=== PATIENT | female | born 1940 | race Caucasian/White ===

== ENCOUNTER 2020-06-13 15:25 | Outpatient (CLI) | payer MEDICARE, SELFPAY ==
[2020-06-13 15:56] LABS: Basophils Percent Auto 0.5 % (0.2-1.2); Eosinophils Absolute Auto 0.2 K/mm3 (0-0.3); Eosinophils Percent Auto 3.2 % (0-4.4); Hematocrit 39.1 % (37.0-47.0); Hemoglobin 12.8 g/dL (12.0-15.0); Immature Granulocyte Absolute 0.01 K/mm3 (0.00-0.031); Immature Granulocyte Percent A 0.2 % (0-0.5); Lymphocytes Absolute Auto 1.81 K/mm3 (0.9-3.2); Lymphocytes Percent Auto 28.5 % (18.3-44.2); Mean Corpuscular HGB Conc 32.7 g/dl (32-36); Mean Corpuscular Hemoglobin 32.9 pg (26-34); Mean Corpuscular Volume 100.5 fl (80-100); Mean Platelet Volume 10.7 fl (7.4-10.4); Monocytes Absolute Auto 0.4 K/mm3 (0.1-0.6); Monocytes Percent Auto 5.7 % (2.6-8.5); Neutrophils Absolute Auto 3.9 K/mm3 (1.3-6.7); Neutrophils Percent Auto 61.9 % (45.5-73.1); Platelet Count Result 209 k/mm3 (150-375); Red Blood Count 3.89 M/mm3 (4.2-5.4); Red Cell Distribution Width 12.1 % (11.5-14.5); White Blood Count 6.3 K/mm3 (4.5-10.0)
[2020-06-13 16:08] LABS: Alanine Aminotransferase 21 U/L (4-35); Albumin Level 4.1 g/dL (3.5-5.1); Alkaline Phosphatase 61 U/L (38-126); Anion Gap 8.3 mmol/L (7-16); Aspartate Amino Transferase 25 U/L (14-36); Bilirubin,Total 0.6 mg/dL (0.2-1.3); Blood Urea Nitrogen 27 mg/dL (7-17); Calcium 9.5 mg/dL (8.4-10.2); Carbon Dioxide 27 mmol/L (22-30); Chloride 107 mmol/L (98-107); Cholesterol 219 mg/dL (0-200); Estimated Glomerular Filt Rate > 60; Glucose 89 mg/dL (65-105); HDL Direct 67 mg/dL; Potassium 4.3 mmol/L (3.4-5.0); Sodium 138 mmol/L (137-145); Triglycerides 133 mg/dL (<150)
[2020-06-13 16:19] LABS: LDL Cholesterol Direct 102 mg/dL
[2020-06-13 16:28] LABS: Creatinine Urine 123.4 mg/dL
[2020-06-13 16:30] LABS: MALB Creatinine Ratio 31.4 mg/g (0-30); Microalbumin Urine Random 38.7 mg/L (0-16.7)
[2020-06-13 16:41] LABS: Vitamin D 25 Hydroxy 58.5 ng/mL
== END 2020-06-13 15:26 | disposition home or self-care (01) ==
PROVIDERS: PCP Internal Medicine; Visit Provider Internal Medicine
DX: E78.5 Hyperlipidemia, unspecified (principal); F32.9 Major depressive disorder, single episode, unspecified; I35.0 Nonrheumatic aortic (valve) stenosis; Z79.899 Other long term (current) drug therapy
CPT/HCPCS: 36415; 80053; 80061; 82043; 82306; 85025

== ENCOUNTER 2020-07-01 13:45 | Outpatient (CLI) | payer MEDICARE, SELFPAY ==
--- NOTE | 2020-07-01 13:59 | ECHO_ITS ---
Patient Info Name: Sandhya Burk Age: 79 years : 1940 Gender: Female Ht: 65 in Wt: 204 lbs BSA: 2.10 m2 HR: 89 bpm BP: 119 / 91 mmHg Technical Quality: Fair Exam Date: 07/01/2020 2:03 PM Exam Location: [facility] Patient Status: Outpatient Admit Date: 07/01/2020 Staff Ordering Physician: Aly Casey MD Steamtable Attendant Railroad: Freida Rosales RDCS Attending Provider: Aly Casey MD Exam Type: CA echo doppler color flow Study Info Indications I35.0 - Nonrheumatic aortic (valve) stenosis Complete two-dimensional, color flow and Doppler transthoracic echocardiogram is performed. Summary 1. Left ventricular chamber dimension is normal. 2. Left ventricular systolic function is normal, estimated at 55-60%. 3. There is mildly increased left ventricular wall thickness. 4. The left ventricular diastolic function is grade I diastolic dysfunction. 5. E/e' 6 is not elevated. 6. Global longitudinal strain is mildly abnormal at -16.2%. 7. There is moderate aortic valve sclerosis. 8. There is moderate aortic valve stenosis with a peak velocity of 301 cm/s, mean gradient of 14 mmHg, and aortic valve area of 1.3 cm2. 9. There is trace aortic valve regurgitation. 10. The mitral valve has moderately calcified annulus. 11. No pulmonary hypertension, estimated pulmonary arterial systolic pressure is 32 mmHg. 12. Small atheroma in anterior aortic root. Left Ventricle E/e' 6 is not elevated. Global longitudinal strain is mildly abnormal at -16.2%. Left ventricular chamber dimension is normal. Left ventricular systolic function is normal, estimated at 55-60%. There is mildly increased left ventricular wall thickness. The left ventricular diastolic function is grade I diastolic dysfunction. Right Ventricle Right ventricular chamber dimension is normal. Right ventricular systolic function is normal. Left Atria Left atrial chamber dimension is normal. Right Atria Right atrial chamber dimension is normal. Aortic Valve The aortic valve is trileaflet. There is moderate aortic valve sclerosis. There is moderate aortic valve stenosis with a peak velocity of 301 cm/s, mean gradient of 14 mmHg, and aortic valve area of 1.3 cm2. There is trace aortic valve regurgitation. Pulmonic Valve There is no pulmonic regurgitation. Mitral Valve The mitral valve has moderately calcified annulus. There is no mitral valve stenosis. There is no mitral valve regurgitation. Tricuspid Valve There is no tricuspid valve regurgitation. No pulmonary hypertension, estimated pulmonary arterial systolic pressure is 32 mmHg. Pericardium/Pleural There is no pericardial effusion. Inferior Vena Cava Normal inferior vena cava with >50% collapse upon inspiration consistent with normal right atrial pressure, 5 mmHg. Aorta Small atheroma in anterior aortic root. The aortic root size at the sinus of Valsalva is normal. Left Ventricular Outflow Tract Name Value Normal LVOT 2D LVOT Diameter 2.0 cm LVOT Doppler LVOT Peak Gradient 6 mmHg LVOT Mean Gradient 3 mmHg LVOT VTI
== END 2020-07-01 13:46 | disposition home or self-care (01) ==
PROVIDERS: PCP Internal Medicine; Visit Provider Internal Medicine
DX: I35.0 Nonrheumatic aortic (valve) stenosis (principal)
CPT/HCPCS: 93306

== ENCOUNTER 2020-11-12 08:14 | Outpatient (NON) | payer MEDICARE, SELFPAY ==
[2020-11-12 23:03] LABS: SARS-CoV-2 RNA PCR Negative
== END 2020-11-12 08:15 ==
LOC: ANHCOVIDDT 08:15
PROVIDERS: PCP Internal Medicine; Visit Provider Internal Medicine
DX: R68.89 Other general symptoms and signs (principal); Z20.828 Contact with and (suspected) exposure to other viral communicable diseases
CPT/HCPCS: 87635; C9803; U0003

== ENCOUNTER 2021-01-06 14:24 | Outpatient (CLI) | payer MEDICARE, SELFPAY ==
[2021-01-06 14:50] LABS: Add Urine Microscopic? YES; Appearance Urine Clear (Clear); Bilirubin Urine Negative (Negative); Blood Urine Negative (Negative); Color Urine Yellow (Yellow); Glucose Urine UA Negative (Negative); Ketones Urine Negative (Negative); Leukocyte Esterase Ur 2+ LEU/UL (Negative); Mucus Urine Few /lpf; Nitrate Urine Negative (Negative); Protein Urine 1+ mg/dL (Negative); RBC Urine 0-2 /hpf (0-2); Squamous Epithelial Cell Urine Few /hpf (Few); Urobilinogen Urine Negative mg/dL (<2.0); WBC Urine 0-3 /hpf
== END 2021-01-06 14:25 | disposition home or self-care (01) ==
PROVIDERS: PCP Internal Medicine; Visit Provider Internal Medicine
DX: N39.0 Urinary tract infection, site not specified (principal)
CPT/HCPCS: 81001

== ENCOUNTER 2021-01-17 16:37 | Outpatient (CLI) | payer MEDICARE, SELFPAY ==
[2021-01-17 17:05] LABS: Basophils Percent Auto 0.5 % (0.2-1.2); Eosinophils Absolute Auto 0.2 K/mm3 (0-0.3); Eosinophils Percent Auto 3.8 % (0-4.4); Hemoglobin 12.7 g/dL (12.0-15.0); Immature Granulocyte Absolute 0.03 K/mm3 (0.00-0.031); Immature Granulocyte Percent A 0.5 % (0-0.5); Lymphocytes Absolute Auto 1.62 K/mm3 (0.9-3.2); Lymphocytes Percent Auto 27.9 % (18.3-44.2); Mean Corpuscular HGB Conc 32.6 g/dl (32-36); Mean Corpuscular Hemoglobin 33.2 pg (26-34); Mean Corpuscular Volume 101.8 fl (80-100); Mean Platelet Volume 10.2 fl (7.4-10.4); Monocytes Absolute Auto 0.4 K/mm3 (0.1-0.6); Monocytes Percent Auto 7.4 % (2.6-8.5); Neutrophils Absolute Auto 3.5 K/mm3 (1.3-6.7); Neutrophils Percent Auto 59.9 % (45.5-73.1); Platelet Count Result 242 k/mm3 (150-375); Red Blood Count 3.83 M/mm3 (4.2-5.4); Red Cell Distribution Width 11.9 % (11.5-14.5); White Blood Count 5.8 K/mm3 (4.5-10.0)
[2021-01-17 17:15] LABS: Add Urine Microscopic? YES; Appearance Urine Clear (Clear); Bilirubin Urine Negative (Negative); Blood Urine Negative (Negative); Color Urine Yellow (Yellow); Glucose Urine UA Negative (Negative); Ketones Urine Trace mg/dL (Negative); Leukocyte Esterase Ur 1+ LEU/UL (NEGATIVE); Mucus Urine Rare /lpf; Nitrate Urine Negative (Negative); Protein Urine 1+ mg/dL (Negative); RBC Urine 0-2 /hpf (0-2); Specific Grav Ur 1.026 (1.001-1.035); Squamous Epithelial Cell Urine Few /hpf (Few); Urobilinogen Urine Negative mg/dL (<2.0); WBC Urine 0-3 /hpf (0-3)
[2021-01-17 17:18] LABS: Alanine Aminotransferase 19 U/L (4-35); Albumin Level 3.9 g/dL (3.5-5.1); Alkaline Phosphatase 67 U/L (38-126); Anion Gap 6 mmol/L (8-16); Aspartate Amino Transferase 26 U/L (14-36); Bilirubin,Total 0.4 mg/dL (0.2-1.3); Blood Urea Nitrogen 34 mg/dL (7-17); Calcium 9.1 mg/dL (8.4-10.2); Carbon Dioxide 26 mmol/L (22-30); Chloride 110 mmol/L (98-107); Estimated Glomerular Filt Rate 40; Glucose 80 mg/dL (65-105); Potassium 5.3 mmol/L (3.4-5.0); Sodium 142 mmol/L (137-145)
[2021-01-17 19:24] LABS: Folic Acid > 20.0 ng/mL (2.76->20); Vitamin B12 > 1000.0 pg/mL (239-931)
[2021-01-17 19:34] LABS: Vitamin D 25 Hydroxy 62.8 ng/mL
== END 2021-01-17 16:38 | disposition home or self-care (01) ==
LOC: ANHLAB 16:38
PROVIDERS: PCP Internal Medicine; Visit Provider Internal Medicine
DX: E55.9 Vitamin D deficiency, unspecified (principal); F32.9 Major depressive disorder, single episode, unspecified; N28.89 Other specified disorders of kidney and ureter; R79.89 Other specified abnormal findings of blood chemistry; D53.1 Other megaloblastic anemias, not elsewhere classified; R53.83 Other fatigue
CPT/HCPCS: 36415; 80053; 81001; 82306; 82607; 82746; 84443; 85025

== ENCOUNTER 2021-01-31 16:44 | Outpatient (CLI) | payer MEDICARE, SELFPAY ==
[2021-01-31 17:12] LABS: Anion Gap 5 mmol/L (8-16); Blood Urea Nitrogen 34 mg/dL (7-17); Calcium 9.4 mg/dL (8.4-10.2); Carbon Dioxide 26 mmol/L (22-30); Chloride 112 mmol/L (98-107); Estimated Glomerular Filt Rate 48; Glucose 90 mg/dL (65-105); Potassium 4.5 mmol/L (3.4-5.0); Sodium 143 mmol/L (137-145)
== END 2021-01-31 16:45 | disposition home or self-care (01) ==
PROVIDERS: PCP Internal Medicine; Visit Provider Internal Medicine
DX: N18.9 Chronic kidney disease, unspecified (principal)
CPT/HCPCS: 36415; 80048

== ENCOUNTER 2022-02-23 17:18 | Outpatient (CLI) | payer MEDICARE, SELFPAY ==
[2022-02-23 17:46] LABS: Basophils Percent Auto 0.5 % (0.2-1.2); Eosinophils Absolute Auto 0.1 K/mm3 (0-0.3); Eosinophils Percent Auto 1.7 % (0-4.4); Hematocrit 43.6 % (37.0-47.0); Hemoglobin 13.6 g/dL (12.0-15.0); Immature Granulocyte Absolute 0.02 K/mm3 (0.00-0.031); Immature Granulocyte Percent A 0.3 % (0-0.5); Lymphocytes Absolute Auto 1.33 K/mm3 (0.9-3.2); Mean Corpuscular HGB Conc 31.2 g/dl (32-36); Mean Corpuscular Hemoglobin 32.9 pg (26-34); Mean Corpuscular Volume 105.3 fl (80-100); Mean Platelet Volume 10.5 fl (7.4-10.4); Monocytes Absolute Auto 0.3 K/mm3 (0.1-0.6); Monocytes Percent Auto 5.6 % (2.6-8.5); Neutrophils Absolute Auto 4.2 K/mm3 (1.3-6.7); Neutrophils Percent Auto 69.9 % (45.5-73.1); Platelet Count Result 208 k/mm3 (150-375); Red Blood Count 4.14 M/mm3 (4.2-5.4); Red Cell Distribution Width 11.8 % (11.5-14.5)
[2022-02-23 17:59] LABS: Alanine Aminotransferase 21 U/L (4-35); Albumin Level 3.9 g/dL (3.5-5.1); Alkaline Phosphatase 61 U/L (38-126); Anion Gap 5 mmol/L (8-16); Aspartate Amino Transferase 28 U/L (14-36); Bilirubin,Total 0.3 mg/dL (0.2-1.3); Blood Urea Nitrogen 31 mg/dL (7-17); Calcium 9.3 mg/dL (8.4-10.2); Carbon Dioxide 27 mmol/L (22-30); Chloride 110 mmol/L (98-107); Cholesterol 159 mg/dL (0-200); Estimated Glomerular Filt Rate 36; Glucose 97 mg/dL (65-110); HDL Direct 73 mg/dL; Potassium 5.4 mmol/L (3.4-5.0); Sodium 142 mmol/L (137-145); Triglycerides 225 mg/dL (<150)
[2022-02-23 18:10] LABS: LDL Cholesterol Direct 33 mg/dL
[2022-02-23 18:19] LABS: Vitamin D 25 Hydroxy 63.5 ng/mL
== END 2022-02-23 17:19 | disposition home or self-care (01) ==
LOC: ANHLAB 17:21
PROVIDERS: PCP Internal Medicine; Visit Provider Internal Medicine
DX: N18.9 Chronic kidney disease, unspecified (principal); E55.9 Vitamin D deficiency, unspecified; R79.89 Other specified abnormal findings of blood chemistry; D53.1 Other megaloblastic anemias, not elsewhere classified; I35.0 Nonrheumatic aortic (valve) stenosis; F33.9 Major depressive disorder, recurrent, unspecified; E78.2 Mixed hyperlipidemia
CPT/HCPCS: 36415; 80053; 80061; 82306; 84443; 85025

== ENCOUNTER 2022-04-20 02:02 | Day surgery (SDC) | payer MEDICARE, SELFPAY ==
[2022-04-15 12:50] VITALS: BMI 32.3
--- NOTE | 2022-04-20 11:59 | PM.HPGS ---
History of Present Illness History of Present Illness Consent: Risks, benefits, and alternatives have been discussed and questions answered. Patient agrees to proceed with procedure. Chief complaint: GIST/gastric tumor Narrative: Sandhya Burk is a 81 year old female who was found to have what appears to be a possible stromal tumor. This was found incidentally when she had an MRI 2 years ago to investigate urologic problems. Review of Systems Review of Systems: All systems reviewed & are unremarkable except as noted in HPI and below PMFSH Past Medical History Medical History Aortic stenosis 1.3 cm2 07/04 BPPV (benign paroxysmal positional vertigo) Cataract CKD (chronic kidney disease) Dyslipidemia Gastrointestinal stromal tumor (GIST) Left renal mass Megaloblastic anemia Obesity (BMI 30-39.9) Rheumatoid arthritis Surgical History Surgical History H/O shoulder replacement H/O: hysterectomy History of tonsillectomy Total knee replacement status Family History Family History Father Family history of cardiovascular disease Family history of atrial fibrillation Family history of alcoholism Mother Family history of cardiovascular disease Family history of kidney disease Family history of mental disorder, Onset Age: 98 Sibling Family history of kidney disease Social History Social History Smoking packs per day: 0.75 Smoking cigarettes per day: 15.0 Years smoked: 15 Smoking pack-years: 11.25 Smoking status: Former smoker Tobacco type: cigarettes Second hand tobacco smoke exposure: Yes Smoking end date: 11/15/75 Alcohol intake: current Drinks per week: 2 Alcohol use details: a few drinks monthly Substance use: former Living arrangements: with family Spiritual care concerns: No Meds Home Medications and Allergies Home Medications Medication Instructions Recorded Confirmed Type aspirin 81 mg tablet,delayed 81 mg PO DAILY 10/19/19 04/15/22 History release (Adult Low Dose Aspirin) bupropion HCl 200 mg tablet,12 hr 200 mg PO Q12H #180 tabs 10/19/19 04/15/22 Rx sustained-release multivitamin 1 tablet PO DAILY 10/19/19 04/15/22 History sertraline 100 mg tablet 100 mg PO DAILY 10/19/19 04/15/22 History doxycycline monohydrate 40 mg 40 mg PO DAILY 06/05/20 04/15/22 History capsule,immediate - delay release (Oracea) ascorbic acid (vitamin C) 1,000 mg 1 g PO DAILY 06/20/21 04/15/22 History tablet atorvastatin 10 mg tablet (Lipitor) 10 mg PO DAILY 06/20/21 04/15/22 History calcium carbonate 500 mg calcium 1,000 mg PO DAILY 06/20/21 04/15/22 History (1,250 mg) tablet (Calcium 500) ferrous sulfate 325 mg (65 mg 325 mg PO DAILY 06/20/21 04/15/22 History iron) tablet (Feosol) folic acid 400 mcg tablet 0.4 mg PO DAILY 06/20/21 04/15/22 History mecobalamin (vitamin B12) 5,000 5,000 mcg PO BID 06/20/21 04/15/22 History mcg disintegrating tablet vit 1 cap PO DAILY 06/20/21 04/15/22 History C,E,zinc,Mk-tlzli-1-lutein-zeaxanthin 250 mg-2.5 mg-0.5 mg capsule clonazepam 0.5 mg tablet 0.5 mg PO DAILY PRN anxiety 02/25/22 04/15/22 History hydroxychloroquine 200 mg tablet 200 mg PO BID 04/15/22 04/15/22 History Allergies Allergy/AdvReac Type Severity Reaction Status Date / Time adhesive Allergy Unknown Skin Verified 04/20/22 12:21 irritation Exam Const: General: alert Orientation/consciousness: patient oriented x3 Resp: Auscultation: clear to auscultation bilaterally Cardio: Rhythm: regular rhythm GI: GI Palp: Yes Soft to palpation and No Tenderness to palpation present (GI) Neuro: General: patient oriented x3 Assessment and Plan Assessment and plan (1) Gastrointestinal stromal tumor (GIST): Code(s):
--- NOTE | 2022-04-20 12:10 | WPDANESEPPF ---
Anes - Initial Pre Proc Eval Procedure: Operation Date: 04/20/22 13:30 Proposed Procedures p Esophagogastroduodenoscopy - Gregor Jenkins MD Date/Time: 04/20/22 12:10 Surgeon: Gregor Jenkins MD Pre Op Diagnosis: GIST/gastric tumor Patient Data Age: 81 Gender: F Height: 1.68 m Weight: 91 kg Allergies Allergy/AdvReac Type Severity Reaction Status Date / Time adhesive Allergy Unknown Skin Verified 04/15/22 12:46 irritation Home Medications Medication Instructions Recorded Confirmed Type aspirin 81 mg tablet,delayed 81 mg PO DAILY 10/19/19 04/15/22 History release (Adult Low Dose Aspirin) bupropion HCl 200 mg tablet,12 hr 200 mg PO Q12H #180 tabs 10/19/19 04/15/22 Rx sustained-release multivitamin 1 tablet PO DAILY 10/19/19 04/15/22 History sertraline 100 mg tablet 100 mg PO DAILY 10/19/19 04/15/22 History doxycycline monohydrate 40 mg 40 mg PO DAILY 06/05/20 04/15/22 History capsule,immediate - delay release (Oracea) ascorbic acid (vitamin C) 1,000 mg 1 g PO DAILY 06/20/21 04/15/22 History tablet atorvastatin 10 mg tablet (Lipitor) 10 mg PO DAILY 06/20/21 04/15/22 History calcium carbonate 500 mg calcium 1,000 mg PO DAILY 06/20/21 04/15/22 History (1,250 mg) tablet (Calcium 500) ferrous sulfate 325 mg (65 mg 325 mg PO DAILY 06/20/21 04/15/22 History iron) tablet (Feosol) folic acid 400 mcg tablet 0.4 mg PO DAILY 06/20/21 04/15/22 History mecobalamin (vitamin B12) 5,000 5,000 mcg PO BID 06/20/21 04/15/22 History mcg disintegrating tablet vit 1 cap PO DAILY 06/20/21 04/15/22 History C,E,zinc,Eb-dlcqa-7-lutein-zeaxanthin 250 mg-2.5 mg-0.5 mg capsule clonazepam 0.5 mg tablet 0.5 mg PO DAILY PRN anxiety 02/25/22 04/15/22 History hydroxychloroquine 200 mg tablet 200 mg PO BID 04/15/22 04/15/22 History Patient hx anesthesia problems: none Family hx anesthesia problems: none Results Review: All pre-operative results and documents have been reviewed as part of the pre-operative evaluation. [facility] Past Medical History Medical History (Updated 04/20/22 @ 12:13 by Nahum Foy MD) Aortic stenosis 1.3 cm2 07/04 BPPV (benign paroxysmal positional vertigo) Cataract CKD (chronic kidney disease) Dyslipidemia Gastrointestinal stromal tumor (GIST) Left renal mass Megaloblastic anemia Obesity (BMI 30-39.9) Rheumatoid arthritis Surgical History Surgical History (Updated 03/10/22 @ 15:40 by Alisha Urena MA) H/O shoulder replacement H/O: hysterectomy History of tonsillectomy Total knee replacement status Family History Family History Father Family history of cardiovascular disease Family history of atrial fibrillation Family history of alcoholism Mother Family history of cardiovascular disease Family history of kidney disease Family history of mental disorder, Onset Age: 98 Sibling Family history of kidney disease Social History Social History Smoking packs per day: 0.75 Smoking cigarettes per day: 15.0 Years smoked: 15 Smoking pack-years: 11.25 Smoking status: Former smoker Tobacco type: cigarettes Second hand tobacco smoke exposure: Yes Smoking end date: 11/15/75 Alcohol intake: current Drinks per week: 2 Alcohol use details: a few drinks monthly Substance use: former Living arrangements: with family Spiritual care concerns: No Anes - Eval Final PreProcedure Day of Procedure 04/20/22 12:10 Patient weight: obese Heart: regular rate and rhythm Lungs: clear to auscultation and normal air movement Airway: Mallampati scale class II Neurological: alert and oriented Last oral intake: >/= 8 hours ASA classification: IV Emergent: no Anesthetic plan: proceed Anesthesia type and monitoring: general GIVS Results Review: All pre-operative results and documents have been reviewed as kaci
[2022-04-20 12:24] VITALS: BP 103/73; PULSE 98; RESP 18; TEMP 36.1; O2SAT 97; BMI 32.6
[2022-04-20] MEDS: LACTATED RINGERS 1,000 ML 150 ML IV CONT (12:33)
[2022-04-20 12:53] VITALS: BP 100/52; PULSE 76; RESP 18; O2SAT 97
[2022-04-20 13:03] VITALS: BP 103/66; PULSE 76; RESP 21; O2SAT 99
[2022-04-20 13:13] VITALS: BP 119/70; PULSE 75; RESP 20; O2SAT 99
== END 2022-04-20 13:35 | disposition home or self-care (01) ==
PROVIDERS: PCP Internal Medicine; Visit Provider Internal Medicine Gastroenterology
PROC: 0DJ08ZZ Inspection of Upper Intestinal Tract, Via Natural or Artificial Opening Endoscopic (ICD-10-PCS; CPT 43235; principal; 2022-04-20 13:30)
DX: C49.A0 Gastrointestinal stromal tumor, unspecified site (principal); K21.9 Gastro-esophageal reflux disease without esophagitis; K29.70 Gastritis, unspecified, without bleeding; N18.9 Chronic kidney disease, unspecified; E78.5 Hyperlipidemia, unspecified; E66.9 Obesity, unspecified; M06.9 Rheumatoid arthritis, unspecified; D53.1 Other megaloblastic anemias, not elsewhere classified; I35.0 Nonrheumatic aortic (valve) stenosis; Z87.891 Personal history of nicotine dependence; Z68.32 Body mass index [BMI] 32.0-32.9, adult
CPT/HCPCS: 43239; 87081; 88305; J2704; J7120

== ENCOUNTER 2022-06-02 12:41 | Outpatient (RCR) | payer MEDICARE, SELFPAY ==
[2022-06-02 14:36] VITALS: BP 107/68; PULSE 80; RESP 20; TEMP 36.6; O2SAT 97
[2022-06-02] MEDS: ACETAMINOPHEN 325 MG TABLET 650 MG PO (14:50)
[2022-06-02] MEDS: FAMOTIDINE 20 MG TABLET PO (14:50)
[2022-06-02] MEDS: diphenhydrAMINE HCl CAP 25 MG CAPSULE PO (14:50)
[2022-06-02] MEDS: BEBTELOVIMAB 175 MG/2 ML VIAL IV PUSH (15:11)
[2022-06-02 15:46] VITALS: BP 115/60; PULSE 69; RESP 18; O2SAT 98
== END 2022-06-02 16:00 ==
LOC: AMCINF 12:41
PROVIDERS: PCP Internal Medicine; Referring Provider Internal Medicine; Visit Provider Internal Medicine Hematology & Oncology
DX: U07.1 COVID-19 (principal); N18.9 Chronic kidney disease, unspecified
CPT/HCPCS: A9270; M0222; Q0222

== ENCOUNTER 2022-07-07 17:08 | Outpatient (CLI) | payer MEDICARE, SELFPAY ==
[2022-07-07 18:28] LABS: Creatinine Urine 227.4 mg/dL; Total Protein Urine Random 26 mg/dL; Ur Ttl Prot Creatinine Ratio 0.11 mg/mg (0-0.20)
[2022-07-07 18:43] LABS: Albumin Level 4.2 g/dL (3.5-5.1); Anion Gap 11 mmol/L (8-16); Blood Urea Nitrogen 34 mg/dL (7-17); Calcium 9.9 mg/dL (8.4-10.2); Carbon Dioxide 23 mmol/L (22-30); Chloride 103 mmol/L (98-107); Estimated Glomerular Filt Rate 39; Glucose 91 mg/dL (65-110); Phosphorus 4.4 mg/dL (2.5-4.5); Potassium 4.6 mmol/L (3.4-5.0); Sodium 137 mmol/L (137-145)
[2022-07-07 18:50] LABS: Complement C3 119 mg/dL (88-165)
[2022-07-07 18:59] LABS: Sodium Urine Random 69 meq/L
[2022-07-07 19:45] LABS: Eosinophil Urine None Seen % (None Seen)
[2022-07-11 21:19] LABS: Albumin 3.8 g/dL (3.8-4.8); Alpha 1 Globulin 0.3 g/dL (0.2-0.3); Alpha 2 Globulin 0.9 g/dL (0.5-0.9); Beta 1 Globulin 0.4 g/dL (0.4-0.6); Gamma Globulin 0.5 g/dL (0.8-1.7); Interpretation Consistent with; Protein, Total 6.2 g/dL (6.1-8.1)
[2022-07-11 22:09] LABS: ANCA Screen Negative (Negative)
[2022-07-13 02:00] LABS: Total Protein/Creatinine Ratio 195 mg/g creat (21-161)
[2022-07-14 20:32] LABS: Anti Glomerular Basement Memb <1.0 AI (<1.0)
== END 2022-07-07 17:09 | disposition home or self-care (01) ==
PROVIDERS: PCP Internal Medicine; Visit Provider Internal Medicine Nephrology
DX: N18.32 Chronic kidney disease, stage 3b (principal); E78.5 Hyperlipidemia, unspecified
CPT/HCPCS: 36415; 80069; 82570; 83520; 84155; 84156; 84165; 84166; 84300; 85999; 86036; 86038; 86160; 86225

== ENCOUNTER → 2022-08-25 14:58 | Outpatient (CLI) | payer MEDICARE, SELFPAY ==
--- NOTE | ~2022-08-25 | US_ITS ---
EXAMINATION: US retroperitoneal comp DATE: 08/25/2022 15:29 INDICATION: Chronic kidney disease TECHNIQUE: Multiple ultrasound grayscale images of the kidneys were obtained. COMPARISON: 04/05/2018 FINDINGS: The right kidney measures 10.3 x 4.5 x 5.0 cm. The left kidney measures 10.9 x 5.2 x 4.9 cm. The kidn eys demonstrate normal echogenicity. There are couple small hyperechoic lesions in the right kidney, the larger measuring 9 mm in the interpolar region. The second smaller 6 mm lesion at the lower pole appears unchanged since the prior study. Somewhat V-shaped anechoic cystic lesion at the lower pole o f the left kidney which could represent either an irregularly-shaped cyst, complex cyst with incomple te thin septation lower couple dilated calyces isolated to the lower pole. No margot hydronephrosis in either kidney. 1.8 cm anechoic left renal cyst. No stones identified. The bladder is normal. IMPRESSION: 1. Irregularly-shaped cystic lesion at the lower pole of the right kidney which could represent irre gularly shaped simple cyst, complex cystic neoplasm or pair of dilated calyces isolated to the lower pole. Would recommend further evaluation with pre and postcontrast MRI or CT. No margot hydronephrosis in either kidney. 2. 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 Reviewed, dictated and finalized at location B. IMPRESSION: 1. Irregularly-shaped cystic lesion at the lower pole of the right kidney whic h could represent irregularly shaped simple cyst, complex cystic neoplasm or pa ir of dilated calyces isolated to the lower pole. Would recommend further evalu ation with pre and postcontrast MRI or CT. No margot hydronephrosis in either ki dney. 2. 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
== END ==
PROVIDERS: PCP Internal Medicine Nephrology; Visit Provider Internal Medicine Nephrology
DX: N18.32 Chronic kidney disease, stage 3b (principal)
CPT/HCPCS: 76770

== ENCOUNTER 2022-11-12 15:15 | Outpatient (CLI) | payer MEDICARE, SELFPAY ==
[2022-11-12 16:25] LABS: Anion Gap 4 mmol/L (8-16); Blood Urea Nitrogen 26 mg/dL (7-17); Calcium 9.1 mg/dL (8.4-10.2); Carbon Dioxide 26 mmol/L (22-30); Chloride 111 mmol/L (98-107); Estimated Glomerular Filt Rate 43; Glucose 75 mg/dL (65-110); Phosphorus 3.5 mg/dL (2.5-4.5); Potassium 4.3 mmol/L (3.4-5.0); Sodium 141 mmol/L (137-145)
[2022-11-12 16:26] LABS: Creatinine Urine 148.8 mg/dL; Total Protein Urine Random 12 mg/dL; Ur Ttl Prot Creatinine Ratio 0.08 mg/mg (0-0.20)
[2022-11-12 17:25] LABS: Vitamin D 25 Hydroxy 45.4 ng/mL
== END 2022-11-12 15:16 | disposition home or self-care (01) ==
LOC: ANHLAB 15:17
PROVIDERS: PCP Internal Medicine; Visit Provider Internal Medicine Nephrology
DX: E55.9 Vitamin D deficiency, unspecified (principal); N18.32 Chronic kidney disease, stage 3b; N25.81 Secondary hyperparathyroidism of renal origin
CPT/HCPCS: 36415; 80069; 82306; 82570; 83970; 84156

== ENCOUNTER 2023-01-01 14:18 | Outpatient (CLI) | payer MEDICARE, SELFPAY ==
[2023-01-01 14:53] LABS: Basophils Percent Auto 0.6 % (0.2-1.2); Eosinophils Absolute Auto 0.3 K/mm3 (0-0.3); Eosinophils Percent Auto 4.9 % (0-4.4); Hematocrit 41.5 % (37.0-47.0); Hemoglobin 13.4 g/dL (12.0-15.0); Immature Granulocyte Absolute 0.02 K/mm3 (0.00-0.031); Immature Granulocyte Percent A 0.4 % (0-0.5); Lymphocytes Absolute Auto 1.13 K/mm3 (0.9-3.2); Mean Corpuscular HGB Conc 32.3 g/dl (32-36); Mean Corpuscular Hemoglobin 33.1 pg (26-34); Mean Corpuscular Volume 102.5 fl (80-100); Mean Platelet Volume 11.2 fl (7.4-10.4); Monocytes Absolute Auto 0.4 K/mm3 (0.1-0.6); Monocytes Percent Auto 7.2 % (2.6-8.5); Neutrophils Absolute Auto 3.3 K/mm3 (1.3-6.7); Neutrophils Percent Auto 64.9 % (45.5-73.1); Platelet Count Result 150 k/mm3 (150-375); Red Blood Count 4.05 M/mm3 (4.2-5.4); Red Cell Distribution Width 12.4 % (11.5-14.5); White Blood Count 5.1 K/mm3 (4.5-10.0)
[2023-01-01 14:54] LABS: Appearance Urine Slightly Cloudy (Clear); Bilirubin Urine Negative (Negative); Blood Urine Trace-intact (Negative); Color Urine Yellow (Yellow); Glucose Urine UA Negative (Negative); Ketones Urine Negative (Negative); Leukocyte Esterase Ur Trace LEU/UL (Negative); Nitrate Urine Negative (Negative); Protein Urine 1+ mg/dL (Negative); Specific Grav Ur >= 1.030 (1.001-1.035); Urobilinogen Urine 0.2 mg/dL (<2.0); pH Urine 5.5 (5.0-9.0)
[2023-01-01 15:01] LABS: Mucus Urine Few /lpf; Squamous Epithelial Cell Urine Few /hpf (Few)
[2023-01-01 15:02] LABS: Anion Gap 6 mmol/L (8-16); Blood Urea Nitrogen 17 mg/dL (7-17); Carbon Dioxide 25 mmol/L (22-30); Chloride 110 mmol/L (98-107); Estimated Glomerular Filt Rate 53; Glucose 78 mg/dL (65-110); Potassium 3.8 mmol/L (3.4-5.0); Sodium 141 mmol/L (137-145)
[2023-01-01 15:03] LABS: Add Urine Microscopic? YES
== END 2023-01-01 14:19 | disposition home or self-care (01) ==
PROVIDERS: PCP Internal Medicine
DX: I35.0 Nonrheumatic aortic (valve) stenosis (principal); Z01.818 Encounter for other preprocedural examination
CPT/HCPCS: 36415; 80048; 81001; 85025

== ENCOUNTER 2023-03-17 16:44 | Outpatient (CLI) | payer MEDICARE, SELFPAY ==
[2023-03-17 17:23] LABS: Creatinine Urine 190.3 mg/dL; Total Protein Urine Random 17 mg/dL; Ur Ttl Prot Creatinine Ratio 0.09 mg/mg (0-0.20)
[2023-03-17 17:23] LABS: Albumin Level 4.1 g/dL (3.5-5.1); Anion Gap 7 mmol/L (8-16); Blood Urea Nitrogen 32 mg/dL (7-17); Calcium 9.4 mg/dL (8.4-10.2); Carbon Dioxide 22 mmol/L (22-30); Chloride 110 mmol/L (98-107); Estimated Glomerular Filt Rate 43; Glucose 95 mg/dL (65-110); Phosphorus 4.2 mg/dL (2.5-4.5); Potassium 4.5 mmol/L (3.4-5.0); Sodium 139 mmol/L (137-145)
== END 2023-03-17 16:45 | disposition home or self-care (01) ==
PROVIDERS: PCP Internal Medicine; Visit Provider Internal Medicine Nephrology
DX: N18.32 Chronic kidney disease, stage 3b (principal)
CPT/HCPCS: 36415; 80069; 82570; 84156; 93798

== ENCOUNTER 2023-05-11 09:50 | Observation (INO) | payer MEDICARE, SELFPAY ==
[2023-05-11] VITALS (35 sets, daily range): BP systolic 79–115; BP diastolic 48–73; PULSE 59–80; RESP 12–28; TEMP 36.2–36.6; O2SAT 97–100; BMI 27.9
--- NOTE | ~2023-05-11 | CT_ITS ---
EXAMINATION: CT abdomen pelvis wo con DATE: 05/11/2023 11:49 INDICATION: Abdominal pain and distention TECHNIQUE: Computed tomography (CT) of the abdomen and pelvis was performed without intravenous contr ast. The dose-length product (DLP) was 796.22 mGy-cm. Automated exposure control and iterative recons truction technique were employed. COMPARISON: None FINDINGS: Minimal dependent atelectasis is present in the lung bases. The heart size is normal. There are changes of endovascular aortic valve replacement. Cysts of the liver measure up to 4 cm in the l eft hepatic lobe. The spleen, pancreas, and adrenal glands are normal. A stone is present in the gall bladder which is mildly distended. 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 Cysts of the l eft kidney measure up to 11 mm. No pathologically enlarged abdominal or pelvic lymph nodes are identi fied. There is a ventral hernia of the left lower quadrant containing omentum and a segment of nonobs tructed transverse colon. There are right lower quadrant ventral hernias containing fat and omentum. No free intraperitoneal gas or evidence of bowel obstruction. The appendix is normal. There is severe lumbar spondylosis. IMPRESSION: 1. Left lower quadrant ventral hernia containing omentum and a segment of nonobstructed transverse co kyree. 2. Right lower quadrant ventral hernias containing fat and omentum. 3. Cholelithiasis with mild gallbladder distention. Correlate for right upper quadrant tenderness. Reviewed, dictated and finalized at location L. IMPRESSION: 1. Left lower quadrant ventral hernia containing omentum and a segment of nonob structed transverse colon. 2. Right lower quadrant ventral hernias containing fat and omentum. 3. Cholelithiasis with mild gallbladder distention. Correlate for right upper q uadrant tenderness.
--- NOTE | ~2023-05-11 | XR_ITS ---
EXAMINATION: XR chest 1V portable INDICATION: Weakness TECHNIQUE: Portable AP chest at 1153 hours COMPARISON: 06/21/2009 FINDINGS: The lungs are free of acute opacities. No pleural effusion or pneumothorax. The cardiomedia stinal silhouette is normal. There are changes of interval bilateral total shoulder arthroplasty. IMPRESSION: 1. No acute cardiopulmonary abnormality. Reviewed, dictated and finalized at location L.
--- NOTE | 2023-05-11 10:03 | ECG_ITS ---
Measurements Intervals [place] Rate: 64 P: 46 TX: 239 QRS: -70 QRSD: 111 T: 84 QT: 418 QTc: 432 Interpretive Statements SINUS RHYTHM WITH FIRST DEGREE AV BLOCK WITH OCCASIONAL SUPRAVENTRICULAR PREMATURE COMPLEXES INFERIOR MYOCARDIAL INFARCTION , PROBABLY OLD [40+ ms Q WAVE AND/OR ST/T ABNORMALITY IN II/aVF] NO PREVIOUS ECG AVAILABLE FOR COMPARISON Electronically Signed On 05-11-2023 13:56:10 CDT by Keturah Xiong M.D.
[2023-05-11 10:19] LABS: Basophils Absolute Auto 0.1 K/mm3 (0.0-0.1); Basophils Percent Auto 0.6 % (0.2-1.2); Eosinophils Absolute Auto 0.3 K/mm3 (0-0.3); Eosinophils Percent Auto 3.7 % (0-4.4); Hematocrit 41.5 % (37.0-47.0); Hemoglobin 13.4 g/dL (12.0-15.0); Immature Granulocyte Absolute 0.02 K/mm3 (0.00-0.031); Immature Granulocyte Percent A 0.2 % (0-0.5); Immature Platelet Fraction Pct 5.1 % (0.9-11.2); Lymphocytes Absolute Auto 2.42 K/mm3 (0.9-3.2); Lymphocytes Percent Auto 28.6 % (18.3-44.2); Mean Corpuscular HGB Conc 32.3 g/dl (32-36); Mean Corpuscular Hemoglobin 33.8 pg (26-34); Mean Corpuscular Volume 104.8 fl (80-100); Mean Platelet Volume 11.4 fl (7.4-10.4); Monocytes Absolute Auto 0.7 K/mm3 (0.1-0.6); Monocytes Percent Auto 8.6 % (2.6-8.5); Neutrophils Absolute Auto 4.9 K/mm3 (1.3-6.7); Neutrophils Percent Auto 58.3 % (45.5-73.1); Platelet Count Result 92 k/mm3 (150-375); Red Blood Count 3.96 M/mm3 (4.2-5.4); Red Cell Distribution Width 11.8 % (11.5-14.5); White Blood Count 8.5 K/mm3 (4.5-10.0)
[2023-05-11 10:24] LABS: Alanine Aminotransferase 28 U/L (6-35); Alkaline Phosphatase 73 U/L (38-126); Anion Gap 7 mmol/L (8-16); Aspartate Amino Transferase 34 U/L (14-36); Bilirubin,Total 0.6 mg/dL (0.2-1.3); Blood Urea Nitrogen 31 mg/dL (7-17); Calcium 9.4 mg/dL (8.4-10.2); Carbon Dioxide 25 mmol/L (22-30); Chloride 108 mmol/L (98-107); Estimated Glomerular Filt Rate 33; Glucose 96 mg/dL (65-110); Potassium 4.1 mmol/L (3.4-5.0); Sodium 140 mmol/L (137-145)
[2023-05-11] MEDS: SODIUM CHLORIDE 0.9% IV 500 ML 999 ML IV CONT ×2 (10:29→11:59)
[2023-05-11 11:21] LABS: Lactic Acid Reflex 1.3 mmol/L (0.7-2.0)
--- NOTE | 2023-05-11 13:14 | ED.DIZZY ---
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 PAtient states she has been having intermittent dizziness for several weeks. She thinks it is related to when she is doing cardio rehab. She states her blood pressure has been runny low especially when she is going rehab. Today she was feeling fine until she tried to get out the car. Someone had to get a wheelchair to take her to Dr. Holm. Dr. Holm's office unable to get a pulse or blood pressure so she was sent to ER for presumed hypotension. Patient report she was having dizziness with carvedilol so she was switched to metoprolol. She is unsure of her dosage. She denies chest pain, shortness of breath. She denies nausea or vomiting but she does report intermittent abdominal pain. Related Data Home Medications Medication Instructions Recorded Confirmed aspirin 81 mg tablet,delayed 81 mg PO DAILY 10/19/19 05/11/23 release (Adult Low Dose Aspirin) multivitamin 1 tablet PO DAILY 10/19/19 05/11/23 sertraline 100 mg tablet 100 mg PO DAILY 10/19/19 05/11/23 ascorbic acid (vitamin C) 1,000 mg 1 g PO DAILY 06/20/21 05/11/23 tablet atorvastatin 10 mg tablet (Lipitor) 10 mg PO DAILY 06/20/21 05/11/23 ferrous sulfate 325 mg (65 mg 325 mg PO DAILY 06/20/21 05/11/23 iron) tablet (Feosol) folic acid 400 mcg tablet 0.4 mg PO DAILY 06/20/21 05/11/23 vit 1 cap PO DAILY 06/20/21 05/11/23 C,E,zinc,Zc-jkyev-1-lutein-zeaxanthin 250 mg-2.5 mg-0.5 mg capsule clonazepam 0.5 mg tablet 0.5 mg PO DAILY PRN anxiety 02/25/22 05/11/23 sacubitril 24 mg-valsartan 26 mg 0.5 tablet PO Q12H 02/23/23 05/11/23 tablet (Entresto) dapagliflozin propanediol 10 mg 10 mg PO DAILY 03/22/23 05/11/23 tablet (Farxiga) metoprolol succinate 25 mg 25 mg PO DAILY 05/11/23 05/11/23 tablet,extended release 24 hr Allergies Allergy/AdvReac Type Severity Reaction Status Date / Time adhesive Allergy Unknown Skin Verified 05/11/23 10:13 irritation Review of Systems Constitutional: Constitutional: Reports fatigue and Reports weakness Cardiovascular: Cardiovascular: Denies syncope, Denies rapid heart rate, Denies irregular heart rhythm, Denies leg edema and Denies dyspnea Respiratory: Respiratory: Denies chest congestion, Denies hemoptysis, Denies excessive phlegm production and Reports dyspnea (chronic) Gastrointestinal: Gastrointestinal: Reports abdominal pain, Denies hematochezia, Denies diarrhea and Denies vomiting Genitourinary: Genitourinary: Denies hematuria and Denies dysuria Musculoskeletal: Musculoskeletal: Denies joint swelling, Denies loss of height and Denies muscle weakness Neurologic: Denies vertigo, Reports dizziness, Denies syncope, Denies focal weakness and Denies weakness [facility] Past Medical History Medical History (Updated 05/11/23 @ 19:42 by Joy Ruelas MD) Aortic stenosis 1.3 cm2 07/04 BPPV (benign paroxysmal positional vertigo) Cataract Chronic kidney disease Dyslipidemia Left renal mass Megaloblastic anemia Nonischemic cardiomyopathy Obesity (BMI 30-39.9) Surgical History Surgical History (Updated 05/11/23 @ 19:41 by Kendra Bronson PA-C) H/O shoulder replacement H/O: hysterectomy History of tonsillectomy Status post transcatheter aortic valve replacement Total knee replacement status Family History Family History Father Family history of cardiovascular disease Family history of atrial fibrillation Family history of alcoholism Mother Family history of cardiovascula
--- NOTE | 2023-05-11 14:45 | ADMGEN ---
This patient, Sandhya Burk, was admitted to IMU Room 200-01 @ 1435. Patient oriented to hospital policies and general routines including ID bracelet, bed and alarms, visiting hours, pain management, procedures, bathroom and other care routines, personal items, smoking policy, room service/diet, and visiting hours. Information on how to activate the Rapid Response Team has been discussed. Patientare encouraged to report perceived risks to care and to ask questions if they do not understand what they are told or what they should do.
--- NOTE | 2023-05-11 19:31 | PM.IMHP ---
H&P: HPI History of Present Illness Date/Time: 05/11/23 15:00 Chief Complaint: Low blood pressure. Narrative: This is a very pleasant 82-year-old female with nonischemic cardiomyopathy, severe aortic stenosis status post TAVR in February 2023 who presented to the emergency department from Dr. Turner's office for evaluation after she was found to have extremely low blood pressure. The patient provides the following history. Yesterday while at cardiac rehab she reports the sudden onset of upper abdominal discomfort and cramping associated with extreme lightheadedness and dizziness. She sat down for a period of time and felt better, was able ambulate to her car and drive home, however when she got out of the car she once felt extremely weak and dizzy. In fact she lay down in the back seat of her car until her symptoms passed. This morning she was once again feeling dizzy upon standing while getting out of bed but she was able to go about her morning and in fact she drove to Dr. Holm's office for a routine appointment. She had difficulties getting herself out of the car and had to be wheeled into the office where her radial pulses were unable to be palpated and her blood pressures were unable to be read accurately. Blood pressure in the emergency department was as low as 86/61. She was given IV fluid boluses with improvement her blood pressures. She is being admitted in this setting for closer observation. At the time my evaluation she feels a lot better but admits that she still feeling a bit dizzy when getting up to the bathroom. Luckily she has not sustained any falls and she denies loss of consciousness. She has not had chest pain, pleuritic pain, palpitations, or shortness of breath. Regarding this upper abdominal discomfort, she has had several similar episodes though she cannot see a pattern as to when they occur. She does not believe that they are related to food. She describes a cramping discomfort which does not radiate. Occasionally she has nausea with the discomfort but no vomiting. The symptoms began after she lost 25 lb intentionally since February. She denies diarrhea. She has known cholelithiasis but is never had issues with gallbladder attacks to her knowledge. Review of Systems Review of Systems: Twelve systems were reviewed and are negative except for as per HPI. [facility] Past Medical History Medical History (Updated 05/11/23 @ 19:44 by Kendra Bronson PA-C) Aortic stenosis 1.3 cm2 07/04 BPPV (benign paroxysmal positional vertigo) Cataract Chronic kidney disease Dyslipidemia Left renal mass Megaloblastic anemia Nonischemic cardiomyopathy Obesity (BMI 30-39.9) Surgical History Surgical History (Updated 05/11/23 @ 19:41 by Kendra Bronson PA-C) H/O shoulder replacement H/O: hysterectomy History of tonsillectomy Status post transcatheter aortic valve replacement Total knee replacement status Family History Family History Father Family history of cardiovascular disease Family history of atrial fibrillation Family history of alcoholism Mother Family history of cardiovascular disease Family history of kidney disease Family history of mental disorder, Onset Age: 98 Sibling Family history of kidney disease Social History Social History (Updated 05/12/23 @ 12:27 by Kendra Bronson PA-C) Smoking packs per day: 1 Smoking cigarettes per day: 20.0 Years smoked: 15 Smoking pack-years: 15.00 Smoking status: Former smoker Tobacco type: cigarettes Second hand tobacco smoke exposure: Yes Smoking end date: 11/15/75 Alcohol intake: never Drinks per week: 2 Alcohol use details: a few drinks monthly Substance use: never Lack of Transportation: No Lack of Food: Never True Current Housing: I Have Housing Concerned About Future Housing: No Difficulty Paying Gas/Electric Bills: No Difficulty Paying for Meds: No Cur
[2023-05-11] MEDS: buPROPion HCL SR (12HR) 100 MG TABCR 200 MG PO (20:23)
[2023-05-12] VITALS (19 sets, daily range): BP systolic 94–142; BP diastolic 52–76; PULSE 55–69; RESP 16–18; TEMP 36.2–37.3; O2SAT 99–100
[2023-05-12 04:50] LABS: Hematocrit 35.7 % (37.0-47.0); Hemoglobin 11.4 g/dL (12.0-15.0); Immature Platelet Fraction Pct 6.4 % (0.9-11.2); Mean Corpuscular HGB Conc 31.9 g/dl (32-36); Mean Corpuscular Hemoglobin 33.4 pg (26-34); Mean Corpuscular Volume 104.7 fl (80-100); Mean Platelet Volume 11.5 fl (7.4-10.4); Platelet Count Result 66 k/mm3 (150-375); Red Blood Count 3.41 M/mm3 (4.2-5.4); Red Cell Distribution Width 11.6 % (11.5-14.5); White Blood Count 6.3 K/mm3 (4.5-10.0)
[2023-05-12 05:06] LABS: Anion Gap 3 mmol/L (8-16); Blood Urea Nitrogen 29 mg/dL (7-17); Calcium 8.6 mg/dL (8.4-10.2); Carbon Dioxide 26 mmol/L (22-30); Chloride 111 mmol/L (98-107); Estimated CRCL calculation 35 ml/min; Estimated Glomerular Filt Rate 43; Glucose 84 mg/dL (65-110); Magnesium 2.1 mg/dL (1.6-2.3); Potassium 4.2 mmol/L (3.4-5.0); Sodium 140 mmol/L (137-145)
[2023-05-12] MEDS: ATORVASTATIN 10 MG TABLET PO (08:29)
[2023-05-12] MEDS: ASCORBIC ACID 500 MG TABLET 1000 MG PO (08:29)
[2023-05-12] MEDS: buPROPion HCL SR (12HR) 100 MG TABCR 200 MG PO ×2 (08:30→20:21)
[2023-05-12] MEDS: FERROUS SULFATE 324 MG TABLET PO (08:30)
[2023-05-12] MEDS: ASPIRIN 81 MG ENTERIC TABLET PO (08:30)
[2023-05-12] MEDS: FOLIC ACID 0.4 MG TABLET PO (08:30)
[2023-05-12] MEDS: MULTIVITAMINS THERAPEUTIC TAB (*BKC) 1 TABLET PO (08:30)
[2023-05-12] MEDS: SERTRALINE HCL 50 MG TABLET 100 MG PO (08:31)
--- NOTE | 2023-05-12 09:50 | PC.NURSE ---
dr. mcmahan in room to see pt- instructed nurse to wait to administer metoprolol until a auxiliary see's pt today
--- NOTE | 2023-05-12 12:59 | PM.IMPN ---
Progress Note: A&P Assessment and Plan (1) Hypotension: Code(s): I95.9 - Hypotension, unspecified Status: Acute Assessment and Plan: entresto on hold ? hold bb await cardiology eval (2) Elevated serum creatinine: Code(s): R79.89 - Other specified abnormal findings of blood chemistry Status: Acute Assessment and Plan: monitor (3) Cholelithiasis: Code(s): K80.20 - Calculus of gallbladder without cholecystitis without obstruction Status: Acute Assessment and Plan: no abd pain currently monitor (4) Chronic kidney disease: Code(s): N18.9 - Chronic kidney disease, unspecified Status: Acute (5) Ventral hernia: Code(s): K43.9 - Ventral hernia without obstruction or gangrene Status: Acute (6) Nonischemic cardiomyopathy: Code(s): I42.8 - Other cardiomyopathies Status: Acute Assessment and Plan: appears compensated Subjective Date/time seen: 05/12/23 12:59 Interval history: no acute issues this am Exam Const: Other: Well-developed, nontoxic-appearing female in the semi-Dawkins position in bed appearing a bit younger than her stated age. Weight: 78.6 kg. BMI: 20.0. HENMT: Other: Normocephalic, atraumatic. Nares are patent bilaterally. Moist mucous membranes. Eyes: Other: Pupils are reactive. Extraocular motions intact. Sclerae anicteric. Neck: Other: Supple. No JVD. Resp: Other: Respirations are nonlabored and lungs are clear to auscultation. Cardio: Other: Regular rate and rhythm with normal S1-S2. Soft systolic murmur at the upper sternal border. GI: Other: Abdomen is soft and nondistended with positive bowel sounds. There are ventral hernias in the mid to lower abdomen without tenderness to palpation. No tenderness of the upper abdomen. Negative Roldan sign. Skin: Other: Warm and dry. Neuro: Other: Alert. Cranial nerves 2-12 are grossly intact. No gross focal deficits to casual conversation. Extrem: Other: No cyanosis, clubbing, or pitting edema. Peripheral pulses intact. Psych: Other: Pleasant and cooperative. Appropriate mood and affect. Objective Data Vital Signs Vital Signs: Vital Signs - 24 hr 05/11/23 13:00 05/11/23 13:01 05/11/23 13:15 Temperature Pulse Rate 61 62 60 Respiratory Rate 13 16 16 Blood Pressure 90/64 L 108/66 Pulse Oximetry 98 97 100 Oxygen Delivery 05/11/23 13:16 05/11/23 13:30 05/11/23 13:31 Temperature Pulse Rate 60 63 Respiratory Rate 15 23 H 18 Blood Pressure 115/73 Pulse Oximetry 100 99 100 Oxygen Delivery 05/11/23 14:07 05/11/23 14:35 05/11/23 16:00 Temperature 97.9 F 97.1 F L Pulse Rate 62 66 67 Respiratory Rate 14 14 18 Blood Pressure 111/71 97/72 L 105/63 Pulse Oximetry 100 100 100 Oxygen Delivery 05/11/23 16:00 05/11/23 18:00 05/11/23 20:00 Temperature 97.9 F Pulse Rate 71 63 62 Respiratory Rate 20 Blood Pressure 79/48 L Pulse Oximetry 100 Oxygen Delivery 05/11/23 20:21 05/11/23 20:00 05/11/23 20:00 Temperature Pulse Rate 63 Respiratory Rate Blood Pressure 89/59 L Pulse Oximetry 100 Oxygen Delivery Room Air 05/11/23 23:10 05/11/23 23:30 05/11/23 22:00 Temperature 97.6 F Pulse Rate 62 59 L Respiratory Rate 18 Blood Pressure 95/48 L 108/52 L Pulse Oximetry 100 Oxygen Delivery 05/12/23 00:00 05/12/23 00:00 05/12/23 02:00 Temperature Pulse Rate 61 69 Respiratory Rate Blood Pressure Pulse Oximetry 100 Oxygen Delivery Room Air 05/12/23 04:00 05/12/23 04:00 05/12/23 04:00 Temperature 97.6 F Pulse Rate 55 L 62 Respiratory Rate 18 Blood Pressure 101/52 L Pulse Oximetry 99 99 Oxygen Delivery Room Air 05/12/23 06:00 05/12/23 08:00 05/12/23 08:00 Temperature 98.7 F Pulse Rate 57 L 58 L 64 Respiratory Rate 16 Blood Pressure 109/60 Pulse Oximet
[2023-05-12] MEDS: OPTI-GEN TAB 1 TABLET PO (13:40)
[2023-05-12] MEDS: METOPROLOL SUCCINATE EXT REL 25 MG TABCR PO (13:40)
--- NOTE | 2023-05-12 13:53 | PM.CNCAR ---
Assessment and Plan Assessment and plan (1) Hypotension: Code(s): I95.9 - Hypotension, unspecified Status: Acute Assessment and Plan: She is anemic and will repeat a CBC tomorrow to ensure that she is not having blood loss as a cause of her hypotension but likely it is a combination medications. We will restart her metoprolol succinate 25 mg p.o. daily. Will hold Entresto and Farxiga for now. Would like to at least get her on low-dose Entresto before discharge. (2) Elevated serum creatinine: Code(s): R79.89 - Other specified abnormal findings of blood chemistry Status: Acute Assessment and Plan: Improving today (3) Nonischemic cardiomyopathy: Code(s): I42.8 - Other cardiomyopathies Status: Acute Assessment and Plan: Continue metoprolol. As able will add to her regimen (4) S/P TAVR (transcatheter aortic valve replacement): Code(s): Z95.2 - Presence of prosthetic heart valve Status: Acute History of Present Illness History of Present Illness Consult date/time: 05/12/23 13:53 Requesting physician: Petr Jackson MD Consult reason: Other (Hypotension) Reason For Visit: Dizziness/Hypotension Narrative: Reason for consultation: Hypotension, dizziness Requesting provider: Dr. Jackson Date of service 05/12/2023 History patient is a 82-year-old female who was sent from Dr. Holm's office yesterday because of hypotension which was symptomatic. She had a TAVR in February 2023. She was in cardiac rehab 2 days ago and she had some abdominal discomfort and cramping and felt lightheaded and dizzy. She sat down and felt a little bit better and was able to get home but she did feel extremely weak and dizzy upon getting out of a car. The next morning which was yesterday she again felt dizzy upon standing. She went to Dr. Frazier's office yesterday and it was felt like her blood pressure was less than 70. It was a difficult pulse to palpate and she was symptomatic dizzy. She was sent to the emergency department and did receive gentle IV fluids. Medications were held including metoprolol, Entresto and Farxiga. She denies any chest pain, syncope, paroxysmal nocturnal dyspnea, orthopnea, edema, palpitations or shortness of breath. She states she feels better today and is anxious to go home but understands that medications like you to be adjusted. Review of Systems Review of Systems: All systems reviewed & are unremarkable except as noted in HPI and below Constitutional: Constitutional: Denies body ache(s) Eyes: Eyes: Denies blurry vision ENT: Reports Normal hearing present Respiratory: Respiratory: Denies chest congestion Gastrointestinal: Gastrointestinal: Reports abdominal pain Genitourinary: Genitourinary: Denies hematuria Musculoskeletal: Musculoskeletal: Denies back pain Integumentary/Breasts: Skin/Breast: Denies pruritus Neurologic: Denies Abnormal speech present Psychiatric: Psychiatric: Denies anxiety Endocrine: Endocrine: Denies excessive sweating Hematologic/Lymphatic: Hematologic/Lymphatic: Denies easy bleeding Allergic/Immunologic: Allergic/Immunologic: Denies GI upset with certain foods PMFSH Past Medical History Medical History Aortic stenosis 1.3 cm2 07/04 BPPV (benign paroxysmal positional vertigo) Cataract Chronic kidney disease Dyslipidemia Left renal mass Megaloblastic anemia Nonischemic cardiomyopathy Obesity (BMI 30-39.9) Surgical History Surgical History H/O shoulder replacement H/O: hysterectomy History of tonsillectomy Status post transcatheter aortic valve replacement Total knee replacement status Family History Family History Father Family history of cardiovascular disease Family history of atrial fibrillation Family history of alcoho
[2023-05-13] VITALS (13 sets, daily range): BP systolic 94–132; BP diastolic 51–70; PULSE 51–78; RESP 16–18; TEMP 36.1–36.3; O2SAT 94–100
[2023-05-13] MEDS: SERTRALINE HCL 50 MG TABLET 100 MG PO (08:42)
[2023-05-13] MEDS: ATORVASTATIN 10 MG TABLET PO (08:42)
[2023-05-13] MEDS: FERROUS SULFATE 324 MG TABLET PO (08:42)
[2023-05-13] MEDS: buPROPion HCL SR (12HR) 100 MG TABCR 200 MG PO ×2 (08:42→20:31)
[2023-05-13] MEDS: ASPIRIN 81 MG ENTERIC TABLET PO (08:42)
[2023-05-13] MEDS: ASCORBIC ACID 500 MG TABLET 1000 MG PO (08:42)
[2023-05-13] MEDS: OPTI-GEN TAB 1 TABLET PO (08:42)
[2023-05-13] MEDS: MULTIVITAMINS THERAPEUTIC TAB (*BKC) 1 TABLET PO (08:42)
[2023-05-13] MEDS: METOPROLOL SUCCINATE EXT REL 25 MG TABCR PO (08:42)
[2023-05-13] MEDS: FOLIC ACID 0.4 MG TABLET PO (08:42)
--- NOTE | 2023-05-13 10:14 | PM.PNCARD ---
Progress Note: A&P Assessment and Plan (1) Hypotension: Code(s): I95.9 - Hypotension, unspecified Status: Acute Assessment and Plan: Probably secondary to medications. Blood pressure improved today. Metoprolol has been restarted. Holding Entresto and Farxiga for now. Restart Entresto tonight if BP remains stable today. (2) Elevated serum creatinine: Code(s): R79.89 - Other specified abnormal findings of blood chemistry Status: Acute Assessment and Plan: Improving today (3) Nonischemic cardiomyopathy: Code(s): I42.8 - Other cardiomyopathies Status: Acute Assessment and Plan: Continue metoprolol. As able will add to her regimen. As above, hopefully will be able to restart low dose Entresto before discharge. If BP remains stable throughout the day today, would recommend resuming Entresto 12-13mg tonight with close monitoring of BP. (4) S/P TAVR (transcatheter aortic valve replacement): Code(s): Z95.2 - Presence of prosthetic heart valve Status: Acute Subjective Date/time seen: 05/13/23 10:14 Cardiology follow up for hypotension Interval history: She is feeling better today. No dizziness. Denies chest pain, shortness of breath, palpitations. Review of Systems Review of Systems: All systems reviewed & are unremarkable except as noted in HPI and below Constitutional: Constitutional: Denies body ache(s) and Denies excessive sweating Eyes: Eyes: Denies blurry vision ENT: Reports Normal hearing present Respiratory: Respiratory: Denies chest congestion Gastrointestinal: Gastrointestinal: Reports abdominal pain Genitourinary: Genitourinary: Denies hematuria Musculoskeletal: Musculoskeletal: Denies back pain Integumentary/Breasts: Skin/Breast: Denies pruritus Neurologic: Reports Normal hearing present and Denies Abnormal speech present Psychiatric: Psychiatric: Denies anxiety Endocrine: Endocrine: Denies excessive sweating Hematologic/Lymphatic: Hematologic/Lymphatic: Denies easy bleeding Allergic/Immunologic: Allergic/Immunologic: Denies GI upset with certain foods Exam Narrative: Awake alert oriented appears stated age Const: General: comfortable and no acute distress HENMT: Face/Nose/Sinus: Normal nares present Mouth: Yes moist mucous membranes Eyes: Sclera: sclerae normal EOM: EOMs intact bilaterally Neck: Neck: supple Carotids: no bruits Chest: Other: No reproducible chest wall pain to palpation Resp: Effort & Inspection: normal respiratory effort Auscultation: clear to auscultation bilaterally Cardio: Rate: regular rate Rhythm: regular rhythm Other: 1/6 systolic ejection murmur at base GI: Inspection: non-distended Auscultation: normal bowel sounds Skin: General skin exam: normal color Neuro: Cranial nerves: Yes Normal hearing present Speech: normal speech and No Abnormal speech present Sensory Exam: normal sensation Extrem: General: normal to inspection and no edema Psych: Mental Status: mental status grossly normal Affect: normal affect Objective Data Vital Signs Vital Signs: Vital Signs - 24 hr 05/12/23 12:00 05/12/23 12:30 05/12/23 12:45 Temperature 37.3 C Pulse Rate 62 Respiratory Rate 18 Blood Pressure 142/76 H 131/61 94/67 L Pulse Oximetry 100 Oxygen Delivery 05/12/23 12:00 05/12/23 12:00 05/12/23 13:15 Temperature Pulse Rate 66 64 Respiratory Rate Blood Pressure 124/67 Pulse Oximetry Oxygen Delivery Room Air 05/12/23 13:16 05/12/23 13:40 05/12/23 14:00 Temperature Pulse Rate 65 68 69 Respiratory Rate Blood Pressure 110/66 Pulse Oximetry Oxygen Delivery 05/12/23 16:00 05/12/23 16:00 05/12/23 18:00 Temperature 36.2 C L Pulse Rate 58 L 58 L 61 Respiratory Rate 16 Blood Pressure 109/66 Pulse Oximetry 100 Oxygen Delivery 05/12/23 20:00 05/12/23 20:00 05/12/23 20:00 Temperature 3
[2023-05-13 11:21] LABS: Hemoglobin 11.4 g/dL (12.0-15.0); Immature Platelet Fraction Pct 7.1 % (0.9-11.2); Mean Corpuscular HGB Conc 31.7 g/dl (32-36); Mean Corpuscular Hemoglobin 33.4 pg (26-34); Mean Corpuscular Volume 105.6 fl (80-100); Mean Platelet Volume 11.6 fl (7.4-10.4); Platelet Count Result 67 k/mm3 (150-375); Red Blood Count 3.41 M/mm3 (4.2-5.4); Red Cell Distribution Width 11.7 % (11.5-14.5)
--- NOTE | 2023-05-13 15:17 | PM.IMPN ---
Progress Note: A&P Assessment and Plan (1) Hypotension: Code(s): I95.9 - Hypotension, unspecified Status: Acute Assessment and Plan: entresto on hold - resume tonight if bp ok, per cardiology hold farxiga await cardiology eval (2) Elevated serum creatinine: Code(s): R79.89 - Other specified abnormal findings of blood chemistry Status: Acute Assessment and Plan: monitor (3) Cholelithiasis: Code(s): K80.20 - Calculus of gallbladder without cholecystitis without obstruction Status: Acute Assessment and Plan: no abd pain currently monitor (4) Chronic kidney disease: Code(s): N18.9 - Chronic kidney disease, unspecified Status: Acute (5) Ventral hernia: Code(s): K43.9 - Ventral hernia without obstruction or gangrene Status: Acute (6) Nonischemic cardiomyopathy: Code(s): I42.8 - Other cardiomyopathies Status: Acute Assessment and Plan: appears compensated Subjective Date/time seen: 05/13/23 15:17 Interval history: Blood pressure better Exam Const: Other: Well-developed, nontoxic-appearing female in the semi-Dawkins position in bed appearing a bit younger than her stated age. Weight: 78.6 kg. BMI: 20.0. HENMT: Other: Normocephalic, atraumatic. Nares are patent bilaterally. Moist mucous membranes. Eyes: Other: Pupils are reactive. Extraocular motions intact. Sclerae anicteric. Neck: Other: Supple. No JVD. Resp: Other: Respirations are nonlabored and lungs are clear to auscultation. Cardio: Other: Regular rate and rhythm with normal S1-S2. Soft systolic murmur at the upper sternal border. GI: Other: Abdomen is soft and nondistended with positive bowel sounds. There are ventral hernias in the mid to lower abdomen without tenderness to palpation. No tenderness of the upper abdomen. Negative Roldan sign. Skin: Other: Warm and dry. Neuro: Other: Alert. Cranial nerves 2-12 are grossly intact. No gross focal deficits to casual conversation. Extrem: Other: No cyanosis, clubbing, or pitting edema. Peripheral pulses intact. Psych: Other: Pleasant and cooperative. Appropriate mood and affect. Objective Data Vital Signs Vital Signs: Vital Signs - 24 hr 05/12/23 16:00 05/12/23 16:00 05/12/23 18:00 Temperature 97.1 F L Pulse Rate 58 L 58 L 61 Respiratory Rate 16 Blood Pressure 109/66 Pulse Oximetry 100 Oxygen Delivery 05/12/23 20:00 05/12/23 20:00 05/12/23 20:00 Temperature 97.8 F Pulse Rate 62 61 61 Respiratory Rate 16 16 Blood Pressure 115/58 L Pulse Oximetry 100 100 Oxygen Delivery Room Air 05/12/23 21:20 05/12/23 23:36 05/12/23 23:36 Temperature Pulse Rate 57 L 56 L 56 L Respiratory Rate 16 Blood Pressure Pulse Oximetry 100 Oxygen Delivery Room Air 05/13/23 00:00 05/13/23 02:00 05/13/23 04:00 Temperature 97.4 F L Pulse Rate 58 L 60 78 Respiratory Rate 16 Blood Pressure 106/56 L Pulse Oximetry 99 Oxygen Delivery 05/13/23 04:00 05/13/23 04:00 05/13/23 06:00 Temperature 97 F L Pulse Rate 53 L 51 L 56 L Respiratory Rate 16 16 Blood Pressure 99/51 L Pulse Oximetry 99 98 Oxygen Delivery Room Air 05/13/23 08:00 05/13/23 08:41 05/13/23 08:00 Temperature 97 F L Pulse Rate 55 L 54 L Respiratory Rate 18 Blood Pressure 132/64 Pulse Oximetry 100 94 Oxygen Delivery Room Air 05/13/23 08:00 05/13/23 10:00 05/13/23 12:00 Temperature 97.4 F L Pulse Rate 55 L 56 L Respiratory Rate 18 Blood Pressure 121/70 Pulse Oximetry 94 100 Oxygen Delivery Room Air 05/13/23 12:00 05/13/23 12:00 05/13/23 14:00 Temperature Pulse Rate 61 60 Respiratory Rate Blood Pressure Pulse Oximetry 100 Oxygen Delivery Room Air Intake/Output Intake/Output: Intake & Output 05/10/23 05/11/23 05/12/23 05/13/23 23:59 23:59 2
[2023-05-14] VITALS (9 sets, daily range): BP systolic 90–122; BP diastolic 55–69; PULSE 51–63; RESP 16; TEMP 36.1–36.4; O2SAT 96–100
[2023-05-14] MEDS: buPROPion HCL SR (12HR) 100 MG TABCR 200 MG PO (09:22)
[2023-05-14] MEDS: OPTI-GEN TAB 1 TABLET PO (09:22)
[2023-05-14] MEDS: FOLIC ACID 0.4 MG TABLET PO (09:22)
[2023-05-14] MEDS: ASPIRIN 81 MG ENTERIC TABLET PO (09:22)
[2023-05-14] MEDS: SERTRALINE HCL 50 MG TABLET 100 MG PO (09:22)
[2023-05-14] MEDS: FERROUS SULFATE 324 MG TABLET PO (09:22)
[2023-05-14] MEDS: MULTIVITAMINS THERAPEUTIC TAB (*BKC) 1 TABLET PO (09:22)
[2023-05-14] MEDS: METOPROLOL SUCCINATE EXT REL 25 MG TABCR PO (09:22)
[2023-05-14] MEDS: SACUBITRIL/VALSARTAN 12-13 MG TABLET 1 TAB PO (09:22)
[2023-05-14] MEDS: ATORVASTATIN 10 MG TABLET PO (09:22)
[2023-05-14] MEDS: ASCORBIC ACID 500 MG TABLET 1000 MG PO (09:22)
--- NOTE | 2023-05-14 10:36 | PM.PNCARD ---
Progress Note: A&P Assessment and Plan (1) Hypotension: Code(s): I95.9 - Hypotension, unspecified Status: Acute Assessment and Plan: Probably secondary to medications. Blood pressure has improved and is table. Metoprolol has been restarted. Received first dose of Entresto 12-13mg this morning. Recheck blood pressure and if stable and patient remains asymptomatic, she is appropriate for discharge home today. Spoke to hospitalist regarding this plan. Should be discharged on farxiga 10mg daily, metoprolol succinate 25mg daily, and Entresto 12-13mg b.i.d. (2) Elevated serum creatinine: Code(s): R79.89 - Other specified abnormal findings of blood chemistry Status: Acute Assessment and Plan: Improving today (3) Nonischemic cardiomyopathy: Code(s): I42.8 - Other cardiomyopathies Status: Acute Assessment and Plan: As above, continue metoprolol, Entresto, farxiga (4) S/P TAVR (transcatheter aortic valve replacement): Code(s): Z95.2 - Presence of prosthetic heart valve Status: Acute Assessment and Plan: Has follow up at the [facility] on Wednesday. Subjective Date/time seen: 05/14/23 10:36 Cardiology follow up for hypotension Interval history: Continues to feel well today. No dizziness. BP remains stable. Review of Systems Review of Systems: All systems reviewed & are unremarkable except as noted in HPI and below Constitutional: Constitutional: Denies body ache(s) and Denies excessive sweating Eyes: Eyes: Denies blurry vision ENT: Reports Normal hearing present Respiratory: Respiratory: Denies chest congestion Gastrointestinal: Gastrointestinal: Reports abdominal pain Genitourinary: Genitourinary: Denies hematuria Musculoskeletal: Musculoskeletal: Denies back pain Integumentary/Breasts: Skin/Breast: Denies pruritus Neurologic: Reports Normal hearing present and Denies Abnormal speech present Psychiatric: Psychiatric: Denies anxiety Endocrine: Endocrine: Denies excessive sweating Hematologic/Lymphatic: Hematologic/Lymphatic: Denies easy bleeding Allergic/Immunologic: Allergic/Immunologic: Denies GI upset with certain foods Exam Narrative: Awake alert oriented appears stated age Const: General: comfortable and no acute distress HENMT: Face/Nose/Sinus: Normal nares present Mouth: Yes moist mucous membranes Eyes: Sclera: sclerae normal EOM: EOMs intact bilaterally Neck: Neck: supple Carotids: no bruits Chest: Other: No reproducible chest wall pain to palpation Resp: Effort & Inspection: normal respiratory effort Auscultation: clear to auscultation bilaterally Cardio: Rate: regular rate Rhythm: regular rhythm Heart sounds: Murmur heart sound present Other: 16 systolic ejection murmur at base GI: Inspection: non-distended Auscultation: normal bowel sounds Skin: General skin exam: normal color Neuro: Cranial nerves: Yes Normal hearing present Speech: normal speech and No Abnormal speech present Sensory Exam: normal sensation Extrem: General: normal to inspection and no edema Psych: Mental Status: mental status grossly normal Affect: normal affect Objective Data Vital Signs Vital Signs: Vital Signs - 24 hr 05/13/23 12:00 05/13/23 12:00 05/13/23 12:00 Temperature 36.3 C L Pulse Rate 56 L 61 Respiratory Rate 18 Blood Pressure 121/70 Pulse Oximetry 100 100 Oxygen Delivery Room Air 05/13/23 14:00 05/13/23 16:00 05/13/23 16:00 Temperature 36.1 C L Pulse Rate 60 58 L Respiratory Rate 16 Blood Pressure 120/62 Pulse Oximetry 100 100 Oxygen Delivery Room Air 05/13/23 16:00 05/13/23 18:00 05/13/23 20:00 Temperature Pulse Rate 70 60 59 L Respiratory Rate 16 Blood Pressure Pulse Oximetry 100 Oxygen Delivery Room Air 05/13/23 20:00 05/13/23 20:00 05/13/23 22:00 Temperature 36.2 C L Pulse Rate 59 L 56 L 56 L Respiratory
--- NOTE | 2023-05-14 11:43 | PM.DS ---
DS: Admitting Diagnosis Discharge Date May 14, 2023 Admitting Diagnosis Hypotension DS: Discharge Diagnosis Discharge Diagnosis (1) Hypotension: Code(s): I95.9 - Hypotension, unspecified Status: Acute Assessment and Plan: entresto on hold - resume tonight if bp ok, per cardiology hold farxiga await cardiology eval (2) Elevated serum creatinine: Code(s): R79.89 - Other specified abnormal findings of blood chemistry Status: Acute Assessment and Plan: monitor (3) Cholelithiasis: Code(s): K80.20 - Calculus of gallbladder without cholecystitis without obstruction Status: Acute Assessment and Plan: no abd pain currently monitor (4) Chronic kidney disease: Code(s): N18.9 - Chronic kidney disease, unspecified Status: Acute (5) Ventral hernia: Code(s): K43.9 - Ventral hernia without obstruction or gangrene Status: Acute (6) Nonischemic cardiomyopathy: Code(s): I42.8 - Other cardiomyopathies Status: Acute Assessment and Plan: appears compensated DS: Summary Hospital Course Hospital Course: Patient is an 82-year-old female with multiple cardiac issues came in with hypotension. Adjusting her medications improved her symptoms. We will continue to hold her Entresto. Otherwise all her home medications can be resumed Time Spent with Patient Time attestation: Total time spent providing and/or coordinating discharge services: Exam Const: Other: Well-developed, nontoxic-appearing female in the semi-Dawkins position in bed appearing a bit younger than her stated age. Weight: 78.6 kg. BMI: 20.0. HENMT: Other: Normocephalic, atraumatic. Nares are patent bilaterally. Moist mucous membranes. Eyes: Other: Pupils are reactive. Extraocular motions intact. Sclerae anicteric. Neck: Other: Supple. No JVD. Resp: Other: Respirations are nonlabored and lungs are clear to auscultation. Cardio: Other: Regular rate and rhythm with normal S1-S2. Soft systolic murmur at the upper sternal border. GI: Other: Abdomen is soft and nondistended with positive bowel sounds. There are ventral hernias in the mid to lower abdomen without tenderness to palpation. No tenderness of the upper abdomen. Negative Roldan sign. Skin: Other: Warm and dry. Neuro: Other: Alert. Cranial nerves 2-12 are grossly intact. No gross focal deficits to casual conversation. Extrem: Other: No cyanosis, clubbing, or pitting edema. Peripheral pulses intact. Psych: Other: Pleasant and cooperative. Appropriate mood and affect. Discharge Plan Discharge Attending physician on discharge: Petr Jackson Consulting providers: Juan C White Discharging Clinician: Petr Jackson Patient Disposition: Home, Self-Care Activity: as tolerated Diet: as tolerated Patient Instructions: Antibiotic Form Stand Alone Forms: General Discharge Information Follow-up/Referrals: Juan C White MD [Physician] - Discharge Medications: Continued ascorbic acid (vitamin C) 1,000 mg tablet 1 g PO DAILY vit C,E,Zn,Rj-[id number]-grr-[id number] 250-2.5-0.5 mg capsule 1 cap PO DAILY Rx Instructions: AREDS ferrous sulfate [Feosol] 325 mg (65 mg iron) tablet 325 mg PO DAILY folic acid 400 mcg tablet 0.4 mg PO DAILY atorvastatin [Lipitor] 10 mg tablet 10 mg PO DAILY Farxiga 10 mg tablet 10 mg PO DAILY metoprolol succinate 25 mg tablet extended release 24 hr 25 mg PO DAILY bupropion HCl 200 mg tablet sustained-release 12 hr 200 mg PO Q12H Qty: 180 1RF sertraline 100 mg tablet 100 mg PO DAILY multivitamin Tablet 1 tablet PO DAILY aspirin [Adult Low Dose Aspirin] 81 mg tablet,delayed release (DR/EC) 81 mg PO DAILY clonazepam 0.5 mg tablet 0.5 mg PO DAILY PRN (Reason: anxiety) Discontinued Ent
== END 2023-05-14 13:10 | disposition home or self-care (01) ==
LOC: ANHED 10:47 → ANHIMU 14:39
PROVIDERS: Nurse Practitioner; Physician Assistant; Admitting Provider Internal Medicine; Emergency Provider General Practice; PCP Family Medicine; Visit Provider Chiropractor
DX: I95.9 Hypotension, unspecified (principal); R79.89 Other specified abnormal findings of blood chemistry; K80.20 Calculus of gallbladder without cholecystitis without obstruction; N18.9 Chronic kidney disease, unspecified; K43.9 Ventral hernia without obstruction or gangrene; I42.8 Other cardiomyopathies; Z95.2 Presence of prosthetic heart valve; R10.9 Unspecified abdominal pain; I35.0 Nonrheumatic aortic (valve) stenosis; I44.0 Atrioventricular block, first degree; I49.1 Atrial premature depolarization; I50.9 Heart failure, unspecified; E78.5 Hyperlipidemia, unspecified; E66.9 Obesity, unspecified; Z68.28 Body mass index [BMI] 28.0-28.9, adult; F10.90 Alcohol use, unspecified, uncomplicated; Z87.891 Personal history of nicotine dependence; Z79.82 Long term (current) use of aspirin; Z79.84 Long term (current) use of oral hypoglycemic drugs; Z79.899 Other long term (current) drug therapy; Z82.49 Family history of ischemic heart disease and other diseases of the circulatory system; Z84.1 Family history of disorders of kidney and ureter; Z81.8 Family history of other mental and behavioral disorders
CPT/HCPCS: 36415; 71045; 74176; 80048; 80053; 83605; 83735; 85025; 85027; 85055; 93005; 96360; 99285; A9270; G0378; J7040

== ENCOUNTER 2023-05-31 15:00 | Outpatient (RCR) | payer MEDICARE, SELFPAY | END 2023-06-14 16:39 | disposition home or self-care (01) | LOC: ANHCPREHAB 15:00 | PROVIDERS: PCP Internal Medicine; Visit Provider Internal Medicine Cardiovascular Disease | DX: Z95.2 Presence of prosthetic heart valve (principal); I50.89 Other heart failure | CPT/HCPCS: 93798 ==

== ENCOUNTER 2023-07-22 16:36 | Outpatient (CLI) | payer MEDICARE, SELFPAY ==
[2023-07-22 17:23] LABS: Albumin Level 4.1 g/dL (3.5-5.1); Anion Gap 7 mmol/L (8-16); Blood Urea Nitrogen 31 mg/dL (7-17); Calcium 9.1 mg/dL (8.4-10.2); Carbon Dioxide 27 mmol/L (22-30); Chloride 106 mmol/L (98-107); Estimated Glomerular Filt Rate 43; Glucose 94 mg/dL (65-110); Phosphorus 4.4 mg/dL (2.5-4.5); Potassium 4.4 mmol/L (3.4-5.0); Sodium 140 mmol/L (137-145)
[2023-07-22 17:31] LABS: Creatinine Urine 171.5 mg/dL; Total Protein Urine Random 10 mg/dL; Ur Ttl Prot Creatinine Ratio 0.06 mg/mg (0-0.20)
[2023-07-22 17:55] LABS: Parathyroid Intact 22.8 pg/mL (7.5-53.5)
[2023-07-22 19:28] LABS: Vitamin D 25 Hydroxy 63.3 ng/mL
== END 2023-07-22 16:37 | disposition home or self-care (01) ==
LOC: ANHLAB 16:38
PROVIDERS: PCP Family Medicine; Visit Provider Internal Medicine Nephrology
DX: N18.32 Chronic kidney disease, stage 3b (principal); N25.81 Secondary hyperparathyroidism of renal origin; E55.9 Vitamin D deficiency, unspecified
CPT/HCPCS: 36415; 80069; 82306; 82570; 83970; 84156

== ENCOUNTER 2023-11-10 11:40 | Observation (INO) | payer MEDICARE, SELFPAY ==
[2023-11-10] VITALS (39 sets, daily range): BP systolic 127–183; BP diastolic 75–92; PULSE 45–77; RESP 12–24; TEMP 36.7–36.8; O2SAT 94–100; BMI 29.2
--- NOTE | ~2023-11-10 | CT_ITS ---
EXAMINATION: CTA brain carotid DATE: 11/12/2023 12:23 INDICATION: Dizziness. TECHNIQUE: Computed tomographic angiography (CTA) of the head was performed without and with 100 mL O mnipaque-350 intravenous contrast. CTA of the neck was performed with intravenous contrast. Automated exposure control and iterative reconstruction technique were employed. The dose-length product was 1 559.52 mGy-cm. Maximum intensity projection and volume rendered 3D-reconstructions were created by stacie hernandez technologist on a separate workstation. COMPARISON: Head CT 11/10/2023 FINDINGS: HEAD CTA: There are scattered areas of low attenuation in the cerebral white matter, which is within normal limits for the patient's age. There is no intracranial hemorrhage, acute infarction, or abnorm al intracranial mass lesion. The ventricles are normal in size. The paranasal sinuses are clear. The mastoid air cells are normal. There are likely changes of ocular lens replacement surgeries. The vert ebral arteries are codominant. There is no significant stenosis of basilar artery or the posterior ce rebral arteries. There is no significant stenosis of the intracranial internal carotid arteries or an terior or middle cerebral arteries. Anterior communicating aneurysm. The posterior communicating devon pepe are normal. There is no aneurysm. NECK CTA: There is mild scarring at the lung apices. There are nodules in the thyroid measuring up to 8 mm, likely not clinically significant. There are no pathologically enlarged lymph nodes. There is no significant stenosis of the vertebral arteries. There is plaque in the proximal internal carotid a rteries. There is 20% stenosis of the proximal right internal carotid artery relative to normal dista l artery lumen diameter (NASCET criteria). There is 7% stenosis of the proximal left internal carotid artery relative to normal distal artery lumen diameter. There is severe cervical spondylosis. There are chronic compression fractures of T4 and T5. IMPRESSION: 1. Normal aging brain. 2. No aneurysm or significant intracranial arterial stenosis. 3. 20% stenosis of the proximal right internal carotid artery relative to normal distal artery lumen diameter (NASCET criteria). 4. 7% stenosis of the proximal left internal carotid artery relative to normal distal artery lumen di ameter. Reviewed, dictated and finalized at location A. ERY EQUIPMENT REPAIRER IMPRESSION: 1. Normal aging brain. 2. No aneurysm or significant intracranial arterial stenosis. 3. 20% stenosis of the proximal right internal carotid artery relative to claudia l distal artery lumen diameter (NASCET criteria). 4. 7% stenosis of the proximal left internal carotid artery relative to normal distal artery lumen diameter.
--- NOTE | ~2023-11-10 | CT_ITS ---
EXAMINATION: CT brain wo con DATE: 11/10/2023 12:46 INDICATION: Dizziness. TECHNIQUE: Computed tomography (CT) of the head was performed without intravenous contrast. The dose- length product was 681.00 mGy-cm. Automated exposure control and iterative reconstruction technique were employed. COMPARISON: None FINDINGS: Brain parenchymal volume is normal for age. No acute intracranial hemorrhage, infarction, m ass or mass effect. There are scattered mild periventricular and subcortical white matter changes, mo st likely related to small vessel ischemic disease (microangiopathy). No ventriculomegaly or midline shift. Basilar cisterns are patent. Paranasal sinuses and mastoids are pneumatized. No depressed skul l fractures. There is intracranial atherosclerosis. IMPRESSION: 1. No acute intracranial abnormality. Reviewed, dictated and finalized at location B. N PERSON
--- NOTE | ~2023-11-10 | XR_ITS ---
EXAMINATION: XR abdomen obstructive series DATE: 11/11/2023 06:14 INDICATION: Nausea and vomiting. TECHNIQUE: Lateral and supine anteroposterior views of the abdomen on 4 radiographs were obtained. COMPARISON: CT abdomen and pelvis 05/11/2023 FINDINGS: There are no dilated loops of bowel. There is a small volume of stool in the colon. No free intraperitoneal gas. There are surgical clips in the abdomen and pelvis. IMPRESSION: 1. Nonobstructive bowel gas pattern. Reviewed, dictated and finalized at location E. [employer]
--- NOTE | 2023-11-10 11:50 | ECG_ITS ---
Measurements Intervals [place] Rate: 49 P: ID: 0 QRS: -61 QRSD: 134 T: -3 QT: 493 QTc: 448 Interpretive Statements SINUS BRADYCARDIA MARKED LEFT AXIS DEVIATION [QRS AXIS < -30] INTRAVENTRICULAR CONDUCTION DELAY [130+ ms QRS DURATION] VOLTAGE CRITERIA FOR LVH [MEETS CRITERIA IN ONE OF: R(aVL), S(V1), R(V5), R(V5/V6)+S(V1)] POSSIBLE ANTEROSEPTAL MYOCARDIAL INFARCTION , OF INDETERMINATE AGE [30 ms Q WAVE IN V1- V4] OLD INFERIOR INFARCT PRESENT COMPARED TO ECG 05/11/2023 10:04:39 SINUS BRADYCARDIA NOW PRESENT Electronically Signed On 11-10-2023 21:02:28 CUSTOMER SECURITY CLERK by Keturah Xiong M.D.
--- NOTE | 2023-11-10 12:07 | ED.DIZZY ---
HPI - Dizziness General Chief Complaint: Dizziness Stated Complaint: dizzy, nausea Time Seen by Provider: 11/10/23 11:56 History of Present Illness HPI Narrative: Patient is an 83-year-old female with history of BPPV, aortic valve replacement here with dizziness. She notes that it began around 10:00 a.m. this morning when she woke up. She notes that she feels as though she may pass out, denies room spinning sensation. She notes that she occasionally has episodes of dizziness when she gets up too fast but this feels quite different. Does not notice any positional changes. She is extremely nauseous during exam and does assist with the history. He notes that she has vomited several times at home and he provided 1 dose of Zofran with minimal relief. She denies any associated abdominal pain or chest pain. Denies any diarrhea. No known sick contacts. Related Data Home Medications Medication Instructions Recorded Confirmed aspirin 81 mg tablet,delayed 81 mg PO DAILY 10/19/19 11/10/23 release (Adult Low Dose Aspirin) multivitamin 1 tablet PO DAILY 10/19/19 11/10/23 sertraline 100 mg tablet 100 mg PO DAILY 10/19/19 11/10/23 ascorbic acid (vitamin C) 1,000 mg 1 g PO DAILY 06/20/21 11/10/23 tablet atorvastatin 10 mg tablet (Lipitor) 10 mg PO DAILY 06/20/21 11/10/23 ferrous sulfate 325 mg (65 mg 325 mg PO DAILY 06/20/21 11/10/23 iron) tablet (Feosol) folic acid 400 mcg tablet 0.4 mg PO DAILY 06/20/21 11/10/23 vit 1 cap PO DAILY 06/20/21 11/10/23 C,E,zinc,Ep-nxgao-6-lutein-zeaxanthin 250 mg-2.5 mg-0.5 mg capsule clonazepam 0.5 mg tablet 0.5 mg PO DAILY PRN anxiety 02/25/22 11/10/23 dapagliflozin propanediol 10 mg 10 mg PO DAILY 03/22/23 11/10/23 tablet (Farxiga) metoprolol succinate 25 mg 12.5 mg PO DAILY 05/11/23 11/10/23 tablet,extended release 24 hr Allergies Allergy/AdvReac Type Severity Reaction Status Date / Time adhesive Allergy Unknown Skin Verified 07/26/23 13:59 irritation Review of Systems Review of Systems: All systems reviewed & are unremarkable except as noted in HPI and below PMFSH Past Medical History Medical History Aortic stenosis 1.3 cm2 07/04 BPPV (benign paroxysmal positional vertigo) Cataract Chronic kidney disease Dyslipidemia Left renal mass Megaloblastic anemia Nonischemic cardiomyopathy Obesity (BMI 30-39.9) Surgical History Surgical History H/O shoulder replacement H/O: hysterectomy History of tonsillectomy Status post transcatheter aortic valve replacement Total knee replacement status Family History Family History Father Family history of cardiovascular disease Family history of atrial fibrillation Family history of alcoholism Mother Family history of cardiovascular disease Family history of kidney disease Family history of mental disorder, Onset Age: 98 Sibling Family history of kidney disease Social History Social History (Updated 07/26/23 @ 14:00 by Faith Lee MA) Smoking packs per day: 1 Smoking cigarettes per day: 20.0 Years smoked: 15 Smoking pack-years: 15.00 Smoking status: Former smoker Tobacco type: cigarettes Second hand tobacco smoke exposure: Yes Smoking end date: 11/15/75 Alcohol intake: current Drinks per week: 2 Alcohol use details: a few drinks monthly Substance use: never Substance use type: does not use Do You Feel Safe in your Home?: Yes Lack of Transportation: No Lack of Food: Never True Current Housing: I Have Housing Concerned About Future Housing: No Difficulty Paying Gas/Electric Bills: No Difficulty Paying for Meds: No Currently Unemployed: No Education: Bachelor's Degree Difficulty w/ Childcare or Family Care: No Living arrangements: with family Gender identity (if verbalized by t
[2023-11-10 12:12] LABS: Basophils Percent Auto 0.5 % (0.2-1.2); Eosinophils Absolute Auto 0.2 K/mm3 (0-0.3); Eosinophils Percent Auto 2.2 % (0-4.4); Hematocrit 40.9 % (37.0-47.0); Immature Granulocyte Absolute 0.03 K/mm3 (0.00-0.031); Immature Granulocyte Percent A 0.4 % (0-0.5); Lymphocytes Percent Auto 26.2 % (18.3-44.2); Mean Corpuscular HGB Conc 31.8 g/dl (32-36); Mean Corpuscular Hemoglobin 32.9 pg (26-34); Mean Corpuscular Volume 103.5 fl (80-100); Monocytes Absolute Auto 0.5 K/mm3 (0.1-0.6); Monocytes Percent Auto 6.2 % (2.6-8.5); Neutrophils Absolute Auto 4.9 K/mm3 (1.3-6.7); Neutrophils Percent Auto 64.5 % (45.5-73.1); Platelet Count Result 73 k/mm3 (150-375); Red Blood Count 3.95 M/mm3 (4.2-5.4); Red Cell Distribution Width 11.9 % (11.5-14.5); White Blood Count 7.6 K/mm3 (4.5-10.0)
[2023-11-10 12:20] LABS: Alanine Aminotransferase 32 U/L (6-35); Albumin Level 3.9 g/dL (3.5-5.1); Alkaline Phosphatase 76 U/L (38-126); Anion Gap 8 mmol/L (8-16); Aspartate Amino Transferase 34 U/L (14-36); Bilirubin,Total 0.6 mg/dL (0.2-1.3); Blood Urea Nitrogen 31 mg/dL (7-17); Calcium 9.5 mg/dL (8.4-10.2); Carbon Dioxide 19 mmol/L (22-30); Chloride 113 mmol/L (98-107); Estimated CRCL calculation 36 ml/min; Estimated Glomerular Filt Rate 48; Glucose 141 mg/dL (65-110); Potassium 3.5 mmol/L (3.4-5.0); Sodium 140 mmol/L (137-145)
[2023-11-10 12:45] LABS: Lipase 269 U/L (23-300); Magnesium 2.2 mg/dL (1.6-2.3)
[2023-11-10 12:51] LABS: Partial Thromboplastin Time 28.2 SECONDS (22.3-36.8)
[2023-11-10 12:57] LABS: Troponin I < 0.012 ng/mL (0.000-0.034)
[2023-11-10] MEDS: ONDANSETRON INJ 4 MG/2 ML VIAL IV PUSH (13:16)
[2023-11-10] MEDS: diazePAM INJ (*CRX) 10 MG/2 ML SYRINGE 2.5 MG IV PUSH (13:16)
--- NOTE | 2023-11-10 15:23 | ECG_ITS ---
Measurements Intervals [place] Rate: 51 P: 75 CA: 264 QRS: -64 QRSD: 107 T: -72 QT: 448 QTc: 416 Interpretive Statements SINUS BRADYCARDIA WITH FIRST DEGREE AV BLOCK LEFT VENTRICULAR HYPERTROPHY AND ST-T CHANGE [VOLTAGE CRITERIA PLUS ST/T ABNORMALITY] INFERIOR MYOCARDIAL INFARCTION , OF INDETERMINATE AGE [40+ ms Q WAVE AND/OR ST/T ABNORMALITY IN II/aVF] COMPARED TO ECG 11/10/2023 12:08:34 NO SIGNIFICANT CHANGES Electronically Signed On 11-10-2023 21:09:41 ROTARY SHEAR OPERATOR by Keturah Xiong M.D.
[2023-11-10] MEDS: MECLIZINE HCL 25 MG TABLET PO (15:26)
[2023-11-10 16:08] LABS: Troponin I < 0.012 ng/mL (0.000-0.034)
[2023-11-10] MEDS: METOCLOPRAMIDE HCL INJ 10 MG/2 ML VIAL IV PUSH (17:01)
[2023-11-10] MEDS: diphenhydrAMINE HCl INJ 50 MG/ML VIAL 25 MG IV PUSH (17:01)
--- NOTE | 2023-11-10 18:35 | ECG_ITS ---
Measurements Intervals [place] Rate: 58 P: 63 MO: 210 QRS: -70 QRSD: 108 T: -65 QT: 433 QTc: 429 Interpretive Statements SINUS BRADYCARDIA WITH FIRST DEGREE AV BLOCK LEFT VENTRICULAR HYPERTROPHY AND ST-T CHANGE [VOLTAGE CRITERIA PLUS ST/T ABNORMALITY] INFERIOR MYOCARDIAL INFARCTION , OF INDETERMINATE AGE [40+ ms Q WAVE AND/OR ST/T ABNORMALITY IN II/aVF] ANTEROLATERAL MYOCARDIAL INFARCTION , OF INDETERMINATE AGE [40+ ms Q WAVE IN I/aVL/V3- V6] COMPARED TO ECG 11/10/2023 15:36:30 NO SIGNIFICANT CHANGES Electronically Signed On 11-10-2023 21:12:51 SENIOR COMMISSIONS ANALYST by Keturah Xiong M.D.
[2023-11-10 19:01] LABS: Troponin I < 0.012 ng/mL (0.000-0.034)
--- NOTE | 2023-11-10 20:24 | ADMGEN ---
This patient, Sandhay Burk, was admitted to 2 Medical Room 257-01. Patient/family oriented to hospital policies and general routines including ID bracelet, bed and alarms, visiting hours, pain management, procedures, bathroom and other care routines, personal items, smoking policy, room service/diet, and visiting hours. Information on how to activate the Rapid Response Team has been discussed. Patient/Family are encouraged to report perceived risks to care and to ask questions if they do not understand what they are told or what they should do.
[2023-11-11] VITALS (10 sets, daily range): BP systolic 104–108; BP diastolic 55–70; PULSE 65–86; RESP 18–20; TEMP 36.2–36.7; O2SAT 94–98
--- NOTE | 2023-11-11 03:25 | PM.IMHP ---
H&P: HPI History of Present Illness Date/Time: 11/11/23 03:25 Chief Complaint: dizziness and vomiting Narrative: 82F w/ PMH nonischemic cardiomyopathy, s/p TAVR in 02/2023, CKD, presented with dizziness followed by nausea and vomiting. She woke up and felt as if she were going to pass out. she denied spinning sensation or positional change. since admission she reports mild improvement. In the ER she received antivert x2, reglan, valium, benadryl. She was witnessed to have HR 20 at one point, then coming up to 50's. Review of Systems Review of Systems: All systems reviewed & are unremarkable except as noted in HPI and below (HPI) [facility] Past Medical History Medical History Aortic stenosis 1.3 cm2 07/04 BPPV (benign paroxysmal positional vertigo) Cataract Chronic kidney disease Dyslipidemia Left renal mass Megaloblastic anemia Nonischemic cardiomyopathy Obesity (BMI 30-39.9) Surgical History Surgical History H/O shoulder replacement H/O: hysterectomy History of tonsillectomy Status post transcatheter aortic valve replacement Total knee replacement status Family History Family History Father Family history of cardiovascular disease Family history of atrial fibrillation Family history of alcoholism Mother Family history of cardiovascular disease Family history of kidney disease Family history of mental disorder, Onset Age: 98 Sibling Family history of kidney disease Social History Social History (Updated 07/26/23 @ 14:00 by Faith Lee MA) Smoking packs per day: 1 Smoking cigarettes per day: 20.0 Years smoked: 15 Smoking pack-years: 15.00 Smoking status: Former smoker Tobacco type: cigarettes Second hand tobacco smoke exposure: Yes Smoking end date: 11/15/75 Alcohol intake: current Drinks per week: 2 Alcohol use details: a few drinks monthly Substance use: never Substance use type: does not use Do You Feel Safe in your Home?: Yes Lack of Transportation: No Lack of Food: Never True Current Housing: I Have Housing Concerned About Future Housing: No Difficulty Paying Gas/Electric Bills: No Difficulty Paying for Meds: No Currently Unemployed: No Education: Bachelor's Degree Difficulty w/ Childcare or Family Care: No Living arrangements: with family Gender identity (if verbalized by the patient): Female Spiritual care concerns: No Meds Home Medications and Allergies Home Medications Medication Instructions Recorded Confirmed Type aspirin 81 mg tablet,delayed 81 mg PO DAILY 10/19/19 11/10/23 History release (Adult Low Dose Aspirin) bupropion HCl 200 mg tablet,12 hr 200 mg PO Q12H #180 tabs 10/19/19 11/10/23 Rx sustained-release multivitamin 1 tablet PO DAILY 10/19/19 11/10/23 History sertraline 100 mg tablet 100 mg PO DAILY 10/19/19 11/10/23 History ascorbic acid (vitamin C) 1,000 mg 1 g PO DAILY 06/20/21 11/10/23 History tablet atorvastatin 10 mg tablet (Lipitor) 10 mg PO DAILY 06/20/21 11/10/23 History ferrous sulfate 325 mg (65 mg 325 mg PO DAILY 06/20/21 11/10/23 History iron) tablet (Feosol) folic acid 400 mcg tablet 0.4 mg PO DAILY 06/20/21 11/10/23 History vit 1 cap PO DAILY 06/20/21 11/10/23 History C,E,zinc,Nv-ugfqa-6-lutein-zeaxanthin 250 mg-2.5 mg-0.5 mg capsule clonazepam 0.5 mg tablet 0.5 mg PO DAILY PRN anxiety 02/25/22 11/10/23 History dapagliflozin propanediol 10 mg 10 mg PO DAILY 03/22/23 11/10/23 History tablet (Farxiga) metoprolol succinate 25 mg 12.5 mg PO DAILY 05/11/23 11/10/23 History tablet,extended release 24 hr Allergies Allergy/AdvReac Type Severity Reaction Status Date / Time adhesive Allergy Unknown Skin Verified 07/26/23 13:59 irritation Vital Signs Vital Signs - 24 hr 11/10/23 11:46 1
[2023-11-11 04:45] LABS: Influenza A QL RT-PCR Negative (Negative); Influenza B QL RT-PCR Negative (Negative); RSV RNA, RT-PCR Negative (Negative); SARS-CoV-2 RNA PCR Negative (Negative)
[2023-11-11 06:03] LABS: Basophils Percent Auto 0.2 % (0.2-1.2); Eosinophils Absolute Auto 0.1 K/mm3 (0-0.3); Eosinophils Percent Auto 0.8 % (0-4.4); Hematocrit 40.1 % (37.0-47.0); Hemoglobin 12.7 g/dL (12.0-15.0); Immature Granulocyte Absolute 0.02 K/mm3 (0.00-0.031); Immature Granulocyte Percent A 0.3 % (0-0.5); Immature Platelet Fraction Pct 4.4 % (0.9-11.2); Lymphocytes Absolute Auto 1.44 K/mm3 (0.9-3.2); Lymphocytes Percent Auto 22.7 % (18.3-44.2); Mean Corpuscular HGB Conc 31.7 g/dl (32-36); Mean Corpuscular Hemoglobin 32.6 pg (26-34); Mean Corpuscular Volume 103.1 fl (80-100); Mean Platelet Volume 11.5 fl (7.4-10.4); Monocytes Absolute Auto 0.5 K/mm3 (0.1-0.6); Monocytes Percent Auto 7.6 % (2.6-8.5); Neutrophils Absolute Auto 4.3 K/mm3 (1.3-6.7); Neutrophils Percent Auto 68.4 % (45.5-73.1); Platelet Count Result 75 k/mm3 (150-375); Red Blood Count 3.89 M/mm3 (4.2-5.4); Red Cell Distribution Width 11.9 % (11.5-14.5); White Blood Count 6.3 K/mm3 (4.5-10.0)
[2023-11-11 06:12] LABS: Anion Gap 8 mmol/L (8-16); Blood Urea Nitrogen 22 mg/dL (7-17); Calcium 9.1 mg/dL (8.4-10.2); Carbon Dioxide 21 mmol/L (22-30); Chloride 111 mmol/L (98-107); Estimated CRCL calculation 40 ml/min; Estimated Glomerular Filt Rate 53; Glucose 81 mg/dL (65-110); Magnesium 2.1 mg/dL (1.6-2.3); Potassium 3.7 mmol/L (3.4-5.0); Sodium 140 mmol/L (137-145)
--- NOTE | 2023-11-11 07:59 | PM.IMPN ---
Progress Note: A&P Assessment and Plan (1) Dizziness: Code(s): R42 - Dizziness and giddiness Status: Acute Assessment and Plan: Resolved Continue to monitor (2) Bradycardia: Code(s): R00.1 - Bradycardia, unspecified Status: Acute Assessment and Plan: Monitor service attendant cafeteria vital signs Consult cardiology (3) Nausea & vomiting: Qualifiers: Vomiting type: unspecified Qualified Code(s): R11.2 - Nausea with vomiting, unspecified Code(s): R11.2 - Nausea with vomiting, unspecified Status: Acute Assessment and Plan: PRN anti emetics Denies any nausea or vomiting today Subjective Date/time seen: 11/11/23 07:59 Interval history: 11/10: 82F w/ PMH nonischemic cardiomyopathy, s/p TAVR in 02/2023, CKD, presented with dizziness followed by nausea and vomiting. She woke up and felt as if she were going to pass out. she denied spinning sensation or positional change. since admission she reports mild improvement. In the ER she received antivert x2, reglan, valium, benadryl. She was witnessed to have HR 20 at one point, then coming up to 50's. 11/11: This morning on rounding patient reports feeling much better than yesterday. No events over night and no more episodes of extreme bradycardia. Pt reports last evening she was not able to lay flat or she had dizziness, but this is gone today. Labwork and vital signs remain stable. Will continue pt's low dose metoprolol and monitor telemetry and vital signs and if no events will plan discharge tomorrow. Review of Systems Review of Systems: All systems reviewed & are unremarkable except as noted in HPI and below Exam Narrative: Pt is a/ox4 and appears in no acute distress. Pleasant affect. Const: General: comfortable and no acute distress HENMT: Face/Nose/Sinus: Normal nares present Mouth: Yes moist mucous membranes Eyes: General: appearance normal, both eyes and all related structures Sclera: sclerae normal Pupils: Equal, round and reactive pupils present EOM: EOMs intact bilaterally Neck: Neck: supple and no JVD Resp: Effort & Inspection: normal respiratory effort Auscultation: clear to auscultation bilaterally Cardio: Rate: regular rate Rhythm: regular rhythm (50-58) Other: No murmur, rub, or gallop noted GI: Other: Abdomen soft, nontender to palpation with bowel sounds present x 4 quadrants Skin: General skin exam: normal color and no rashes or lesions noted Neuro: Speech: normal speech Motor exam (neuro): 5/5 motor strength present throughout and Motor abnormalites present Sensory Exam: normal sensation Extrem: General: normal to inspection Other: No edema noted. Bilateral pedal and posterior tibial pulses palpable and equal. Psych: Mental Status: mental status grossly normal Affect: normal affect Objective Data Vital Signs Vital Signs: Vital Signs - 24 hr 11/10/23 11:46 11/10/23 12:05 11/10/23 12:08 Temperature 98.2 F Pulse Rate 55 L 45 L 48 L Respiratory Rate 16 16 Blood Pressure 167/92 H 182/87 H Pulse Oximetry 100 100 Oxygen Delivery Room Air 11/10/23 12:07 11/10/23 12:22 11/10/23 12:30 Temperature Pulse Rate 45 L 49 L 58 L Respiratory Rate 24 H 16 18 Blood Pressure Pulse Oximetry 100 98 100 Oxygen Delivery 11/10/23 13:27 11/10/23 13:30 11/10/23 13:31 Temperature Pulse Rate 45 L 47 L 46 L Respiratory Rate Blood Pressure 156/75 H Pulse Oximetry Oxygen Delivery 11/10/23 13:54 11/10/23 14:00 11/10/23 14:01 Temperature Pulse Rate 48 L 50 L 47 L Respiratory Rate Blood Pressure 182/77 H Pulse Oximetry Oxygen Delivery 11/10/23 14:15 11/10/23 14:16 11/10/23 14:30 Temperature Pulse Rate 48 L 47 L 56 L Respiratory Rate Blood Pressure 182/81 H Pulse Oximetry Oxygen Delivery 11/10/23 14:31 11/10/23 14:45 11/10/23 14:46 Temperature Pulse Rate 52 L 48 L 60 R
[2023-11-11] MEDS: buPROPion HCL SR (12HR) 100 MG TABCR 200 MG PO ×2 (11:53→20:15)
[2023-11-11] MEDS: OPTI-GEN TAB 1 TABLET PO (11:53)
[2023-11-11] MEDS: SERTRALINE HCL 50 MG TABLET 100 MG PO (11:54)
[2023-11-11] MEDS: FOLIC ACID 0.4 MG TABLET PO (11:54)
[2023-11-11] MEDS: ASPIRIN 81 MG ENTERIC TABLET PO (11:54)
[2023-11-11] MEDS: MULTIVITAMINS THERAPEUTIC TAB (*BKC) 1 TABLET PO (11:54)
[2023-11-11] MEDS: ASCORBIC ACID 500 MG TABLET 1000 MG PO (11:54)
[2023-11-11] MEDS: ATORVASTATIN 10 MG TABLET PO (11:54)
[2023-11-11] MEDS: EMPAGLIFLOZIN 25 MG TABLET BY MOUTH (11:55)
[2023-11-11] MEDS: METOPROLOL SUCCINATE EXT REL 12.5 MG TABCR PO (11:55)
--- NOTE | 2023-11-11 13:56 | PM.CNCAR ---
Assessment and Plan Assessment and plan (1) Dizziness: Code(s): R42 - Dizziness and giddiness Status: Acute (2) Vertigo: Code(s): R42 - Dizziness and giddiness Status: Acute (3) Nausea & vomiting: Qualifiers: Vomiting type: unspecified Qualified Code(s): R11.2 - Nausea with vomiting, unspecified Code(s): R11.2 - Nausea with vomiting, unspecified Status: Acute (4) Bradycardia: Code(s): R00.1 - Bradycardia, unspecified Status: Acute Plan Presented to [place] ER for evaluation of vertigo, nausea, dizziness. In the ER, patient was vomiting. When she was vomiting, they noticed her heart rate decreasing to mid 20s, but resolved without intervention and heart rate noted to be in the 40s to 50s otherwise. She was given anti-nausea medications and her symptoms improved. She is feeling much better this morning. She had a 48 hour Holter monitor done in May that showed minimum heart rate of 41bpm. Average heart rate of 61bpm. No significant arrhythmias noted on there. She has been taking low-dose Metoprolol. I suspect that when her heart rate decreased when she was vomiting was probably a vagal response. EKGs are stable and unchanged. Continue to monitor on tele. Continue her low dose Metoprolol for now. History of Present Illness History of Present Illness Consult date/time: 11/11/23 13:56 Requesting physician: Manda Yost MD Consult reason: Other (Bradycardia) Reason For Visit: Dizziness Narrative: We are consulted for evaluation of bradycardia. This is an 83 year old female with heart failure with improved left ventricular function with LVEF 40%, non-obstructive CAD, severe aortic stenosis s/p TAVR, known first-degree AVB who presented to [facility] for evaluation of vertigo, nausea, dizziness. In the ER, patient was vomiting. When she was vomiting, they noticed her heart rate decreasing to mid 20s, but resolved without intervention and heart rate noted to be in the 40s to 50s otherwise. She was given anti-nausea medications and her symptoms improved. She is feeling much better this morning. She had a 48 hour Holter monitor done in May that showed minimum heart rate of 41bpm. Average heart rate of 61bpm. No significant arrhythmias noted on there. She has been taking low-dose Metoprolol. Review of Systems Review of Systems: All systems reviewed & are unremarkable except as noted in HPI and below (HPI) [facility] Past Medical History Medical History Aortic stenosis 1.3 cm2 07/04 BPPV (benign paroxysmal positional vertigo) Cataract Chronic kidney disease Dyslipidemia Left renal mass Megaloblastic anemia Nonischemic cardiomyopathy Obesity (BMI 30-39.9) Surgical History Surgical History H/O shoulder replacement H/O: hysterectomy History of tonsillectomy Status post transcatheter aortic valve replacement Total knee replacement status Family History Family History Father Family history of cardiovascular disease Family history of atrial fibrillation Family history of alcoholism Mother Family history of cardiovascular disease Family history of kidney disease Family history of mental disorder, Onset Age: 98 Sibling Family history of kidney disease Social History Social History Smoking packs per day: 1 Smoking cigarettes per day: 20.0 Years smoked: 15 Smoking pack-years: 15.00 Smoking status: Former smoker Tobacco type: cigarettes Second hand tobacco smoke exposure: Yes Smoking end date: 11/15/75 Alcohol intake: current Drinks per week: 2 Alcohol use details: a few drinks monthly Substance use: never Substance use type: does not use Do You Feel Safe in your Home?: Yes Lack of Transportation: No Lack of Food: N
[2023-11-12] VITALS (7 sets, daily range): BP systolic 105–113; BP diastolic 54–74; PULSE 63–78; RESP 14–18; TEMP 36.1–36.2; O2SAT 94–97
[2023-11-12 08:07] LABS: Basophils Percent Auto 0.5 % (0.2-1.2); Eosinophils Absolute Auto 0.1 K/mm3 (0-0.3); Hematocrit 40.2 % (37.0-47.0); Hemoglobin 12.5 g/dL (12.0-15.0); Immature Granulocyte Absolute 0.02 K/mm3 (0.00-0.031); Immature Granulocyte Percent A 0.3 % (0-0.5); Immature Platelet Fraction Pct 5.2 % (0.9-11.2); Lymphocytes Absolute Auto 1.99 K/mm3 (0.9-3.2); Lymphocytes Percent Auto 33.8 % (18.3-44.2); Mean Corpuscular HGB Conc 31.1 g/dl (32-36); Mean Corpuscular Hemoglobin 32.7 pg (26-34); Mean Corpuscular Volume 105.2 fl (80-100); Mean Platelet Volume 11.3 fl (7.4-10.4); Monocytes Absolute Auto 0.5 K/mm3 (0.1-0.6); Monocytes Percent Auto 8.5 % (2.6-8.5); Neutrophils Absolute Auto 3.2 K/mm3 (1.3-6.7); Neutrophils Percent Auto 54.9 % (45.5-73.1); Platelet Count Result 69 k/mm3 (150-375); Red Blood Count 3.82 M/mm3 (4.2-5.4); Red Cell Distribution Width 12.2 % (11.5-14.5); White Blood Count 5.9 K/mm3 (4.5-10.0)
[2023-11-12 08:19] LABS: Anion Gap 5 mmol/L (8-16); Blood Urea Nitrogen 29 mg/dL (7-17); Calcium 8.8 mg/dL (8.4-10.2); Carbon Dioxide 27 mmol/L (22-30); Chloride 107 mmol/L (98-107); Estimated CRCL calculation 31 ml/min; Estimated Glomerular Filt Rate 39; Glucose 84 mg/dL (65-110); Potassium 4.4 mmol/L (3.4-5.0); Sodium 139 mmol/L (137-145)
[2023-11-12] MEDS: MULTIVITAMINS THERAPEUTIC TAB (*BKC) 1 TABLET PO (09:07)
[2023-11-12] MEDS: OPTI-GEN TAB 1 TABLET PO (09:07)
[2023-11-12] MEDS: METOPROLOL SUCCINATE EXT REL 12.5 MG TABCR PO (09:07)
[2023-11-12] MEDS: ASCORBIC ACID 500 MG TABLET 1000 MG PO (09:07)
[2023-11-12] MEDS: ATORVASTATIN 10 MG TABLET PO (09:07)
[2023-11-12] MEDS: buPROPion HCL SR (12HR) 100 MG TABCR 200 MG PO (09:07)
[2023-11-12] MEDS: ASPIRIN 81 MG ENTERIC TABLET PO (09:07)
[2023-11-12] MEDS: SERTRALINE HCL 50 MG TABLET 100 MG PO (09:08)
[2023-11-12] MEDS: FOLIC ACID 0.4 MG TABLET PO (09:08)
[2023-11-12] MEDS: EMPAGLIFLOZIN 25 MG TABLET BY MOUTH (09:08)
--- NOTE | 2023-11-12 15:25 | PM.PNCARD ---
Progress Note: A&P Assessment and Plan (1) Bradycardia: Code(s): R00.1 - Bradycardia, unspecified Status: Acute (2) Vertigo: Code(s): R42 - Dizziness and giddiness Status: Acute (3) Dizziness: Code(s): R42 - Dizziness and giddiness Status: Acute (4) Nausea & vomiting: Qualifiers: Vomiting type: unspecified Qualified Code(s): R11.2 - Nausea with vomiting, unspecified Code(s): R11.2 - Nausea with vomiting, unspecified Status: Acute Plan Presented to [facility] for evaluation of vertigo, nausea, dizziness. In the ER, patient was vomiting. When she was vomiting, they noticed her heart rate decreasing to mid 20s, but resolved without intervention and heart rate noted to be in the 40s to 50s otherwise. She was given anti-nausea medications and her symptoms improved. She is feeling much better this morning. She had a 48 hour Holter monitor done in May that showed minimum heart rate of 41bpm. Average heart rate of 61bpm. No significant arrhythmias noted on there. She has been taking low-dose Metoprolol. I suspect that when her heart rate decreased when she was vomiting was probably a vagal response. EKGs are stable and unchanged. Continue to monitor on tele. Continue her low dose Metoprolol for now. Tele with occasional nonconducted PACs, however, no significant bradycardia or other arrhythmias noted. Okay for discharge home from cardiology standpoint. Will have her wear a 7 day monitor as an outpatient (order already placed). Subjective Date/time seen: 11/12/23 15:25 Interval history: Reason for visit: Bradycardia HPI: We are consulted for evaluation of bradycardia. This is an 83 year old female with heart failure with improved left ventricular function with LVEF 40%, non-obstructive CAD, severe aortic stenosis s/p TAVR, known first-degree AVB who presented to [facility] for evaluation of vertigo, nausea, dizziness. In the ER, patient was vomiting. When she was vomiting, they noticed her heart rate decreasing to mid 20s, but resolved without intervention and heart rate noted to be in the 40s to 50s otherwise. She was given anti-nausea medications and her symptoms improved. She is feeling much better this morning. She had a 48 hour Holter monitor done in May that showed minimum heart rate of 41bpm. Average heart rate of 61bpm. No significant arrhythmias noted on there. She has been taking low-dose Metoprolol. Date of service 11/12: Feeling much better, has some occasional lightheadedness which is a chronic issue for her. Tele with occasional nonconducted PACs, however, no significant bradycardia or other arrhythmias noted. Review of Systems Review of Systems: All systems reviewed & are unremarkable except as noted in HPI and below (HPI) Exam Const: General: comfortable and no acute distress HENMT: Mouth: Yes moist mucous membranes Eyes: General: appearance normal, both eyes and all related structures Sclera: sclerae normal Resp: Effort & Inspection: normal respiratory effort Cardio: Rate: regular rate Rhythm: regular rhythm Skin: General skin exam: normal color Neuro: Speech: normal speech Objective Data Vital Signs Vital Signs: Vital Signs - 24 hr 11/11/23 16:00 11/11/23 19:45 11/11/23 20:00 Temperature 36.2 C L Pulse Rate 69 78 74 Respiratory Rate 18 Blood Pressure 104/62 Pulse Oximetry 97 Oxygen Delivery 11/12/23 00:00 11/12/23 04:00 11/12/23 04:38 Temperature 36.1 C L Pulse Rate 78 75 63 Respiratory Rate 18 Blood Pressure 105/54 L Pulse Oximetry 96 Oxygen Delivery 11/12/23 09:07 11/12/23 09:10 11/12/23 09:10 Temperature Pulse Rate 74 69 Respiratory Rate Blood Pressure 112/74 Pulse Oximetry Oxygen Delivery 11/12/23 09:10 11/12/23 13:22 11/12/23 13:53 Temperature 36.2 C L Pulse Rate 65 Respiratory Rate 14 Blood Pressure 113/63 Pulse Oximetry 94 97 Oxygen Delivery Room Air
--- NOTE | 2023-11-12 15:49 | PM.DS ---
DS: Admitting Diagnosis Discharge Date 11/12/2023 Admitting Diagnosis Dizziness with bradycardia DS: Discharge Diagnosis Discharge Diagnosis (1) Dizziness: Code(s): R42 - Dizziness and giddiness Status: Acute (2) Bradycardia: Code(s): R00.1 - Bradycardia, unspecified Status: Acute (3) Nausea & vomiting: Qualifiers: Vomiting type: unspecified Qualified Code(s): R11.2 - Nausea with vomiting, unspecified Code(s): R11.2 - Nausea with vomiting, unspecified Status: Acute DS: Summary Hospital Course Hospital Course: Patient is a 83-year-old female who presented emergency room for dizziness with nausea and vomiting found to be bradycardic. She was admitted to the hospitalist service and monitored on telemetry. Her bradycardia improved and is back to her baseline and asymptomatic. Cardiology was consulted who recommended environmental monitoring specialist outpatient but no further changes in her medications. Due to her symptoms, CTA was performed which did not show any dissection or significant stenosis. She had no signs of urinary tract infection or pneumonia and was negative for influenza and COVID. The day of discharge she says she felt a little lightheaded but this was normal for her and she says she has felt like this for years but the dizziness was gone. She walked with the physical therapist and felt good. She understands that she is not to drive until this is figured out. She was educated about the worrisome signs and symptoms to come back to emergency room for and was discharged in stable condition. Time Spent with Patient Time attestation: Total time spent providing and/or coordinating discharge services:40 min Time spent: Greater than 30 minutes Exam Narrative: General: Well developed well nourished patient in NAD HEENT: normocephalic Neck: supple Neuro: Alert and oriented x4 CV:RRR. tele with occ pac Resp:CTA Abd: Soft, non distended. No pain to palpation. Positive bowel sounds Extremities: No swelling, erythema, or pain to palpation. DS: Data Data Completed and Pending Labs on day of discharge: Labs from last 24 hours 11/12/23 07:52 WBC 5.9 RBC 3.82 L Hgb 12.5 Hct 40.2 MCV 105.2 H MCH 32.7 MCHC 31.1 L RDW 12.2 Plt Count 69 L MPV 11.3 H Immature Gran % (Auto) 0.3 Neut % (Auto) 54.9 Lymph % (Auto) 33.8 O'Brien % (Auto) 8.5 Eos % (Auto) 2.0 Baso % (Auto) 0.5 Lymph # (Auto) 1.99 O'Brien # (Auto) 0.5 Eos # (Auto) 0.1 Baso # (Auto) 0.0 Abs Immat Gran (auto) 0.02 Absolute Neuts (auto) 3.2 Absolute Nucleated RBC 0.0 Nucleated RBC % 0.0 % Immature Plt Fraction 5.2 Sodium 139 Potassium 4.4 Chloride 107 Carbon Dioxide 27 Anion Gap 5 L BUN 29 H Creatinine 1.30 H Estim Creat Clear Calc 31 Estimated GFR 39 L Glucose 84 Calcium 8.8 TSH (Reflex) 1.680 Discharge Plan Discharge Attending physician on discharge: Torrey Maria Consulting providers: Keturah Xiong Discharging Clinician: Junie Montero Patient Disposition: Home, Self-Care Activity: as tolerated Diet: regular Discharge Instructions: -No driving until dizziness has resolved and okayed by your doctor -make sure you drink plenty of water in the next few days to flush out your kidneys from your CT scan -Follow up with cardiology about your heart monitor --Signs and symptoms of low blood sugar include: Shakiness, dizziness, nausea, confusion, sweating, stomach aches and dizziness. If the symptoms occur you need to check your blood sugar. If it is less than 70, drink some juice with sugar in it or eat some sugary candy. Recheck in 20 minutes. If your blood sugar keeps being low (less than 70), come to the emergency room -Follow up with your primary care provider and see them in the next 2 weeks to follow up with them about this stay -worrisome signs and symptoms to come back to emergency room: Chest pain, worsening dizzines
== END 2023-11-12 16:28 | disposition home or self-care (01) ==
LOC: ANHED 17:44 → ANH3MEDSUR 20:04 → ANH2MED 11-11 10:04 → ANH3MEDSUR 11-16 07:56
PROVIDERS: Emergency Medicine; General Practice; Nurse Practitioner Family; Admitting Provider Family Medicine; Emergency Provider Student in an Organized Health Care Education/Training Program; PCP Family Medicine; Visit Provider Physician Assistant
DX: R42 Dizziness and giddiness (principal); R00.1 Bradycardia, unspecified; R11.2 Nausea with vomiting, unspecified; I50.9 Heart failure, unspecified; N18.9 Chronic kidney disease, unspecified; D53.1 Other megaloblastic anemias, not elsewhere classified; I42.8 Other cardiomyopathies; R94.31 Abnormal electrocardiogram [ECG] [EKG]; F41.9 Anxiety disorder, unspecified; Z96.659 Presence of unspecified artificial knee joint; Z96.619 Presence of unspecified artificial shoulder joint; E78.5 Hyperlipidemia, unspecified; I25.2 Old myocardial infarction; Z95.4 Presence of other heart-valve replacement; Z87.891 Personal history of nicotine dependence; Z79.82 Long term (current) use of aspirin; Z79.899 Other long term (current) drug therapy
CPT/HCPCS: 36415; 70450; 70496; 70498; 74019; 80048; 80053; 83690; 83735; 84443; 84484; 85025; 85055; 85610; 85730; 87637; 93005; 96374; 96375; 97161; 97165; 99285; A9270; G0378; J1200; J2405; J2765; J3360; Q9967

== ENCOUNTER 2023-12-02 14:28 | Outpatient (CLI) | payer MEDICARE, SELFPAY ==
[2023-12-02 15:41] LABS: Creatinine Urine 221.4 mg/dL; Total Protein Urine Random 45 mg/dL
[2023-12-02 16:09] LABS: Albumin Level 4.5 g/dL (3.5-5.1); Anion Gap 8 mmol/L (8-16); Blood Urea Nitrogen 30 mg/dL (7-17); Calcium 9.5 mg/dL (8.4-10.2); Carbon Dioxide 23 mmol/L (22-30); Chloride 108 mmol/L (98-107); Estimated Glomerular Filt Rate 48; Glucose 88 mg/dL (65-110); Phosphorus 4.5 mg/dL (2.5-4.5); Potassium 4.5 mmol/L (3.4-5.0); Sodium 139 mmol/L (137-145)
== END 2023-12-02 14:29 | disposition home or self-care (01) ==
LOC: ANHLAB 14:32
PROVIDERS: PCP Family Medicine; Visit Provider Internal Medicine Nephrology
DX: N18.32 Chronic kidney disease, stage 3b (principal)
CPT/HCPCS: 36415; 80069; 82570; 84156

== ENCOUNTER 2023-12-23 15:05 | Outpatient (CLI) | payer MEDICARE, SELFPAY ==
[2023-12-23 16:08] LABS: Basophils Percent Auto 0.3 % (0.2-1.2); Eosinophils Absolute Auto 0.1 K/mm3 (0-0.3); Eosinophils Percent Auto 2.4 % (0-4.4); Hematocrit 43.9 % (37.0-47.0); Hemoglobin 13.8 g/dL (12.0-15.0); Immature Granulocyte Absolute 0.02 K/mm3 (0.00-0.031); Immature Granulocyte Percent A 0.3 % (0-0.5); Immature Platelet Fraction Pct 6.9 % (0.9-11.2); Lymphocytes Absolute Auto 1.17 K/mm3 (0.9-3.2); Lymphocytes Percent Auto 19.9 % (18.3-44.2); Mean Corpuscular HGB Conc 31.4 g/dl (32-36); Mean Corpuscular Hemoglobin 33.1 pg (26-34); Mean Corpuscular Volume 105.3 fl (80-100); Mean Platelet Volume 11.9 fl (7.4-10.4); Monocytes Absolute Auto 0.3 K/mm3 (0.1-0.6); Monocytes Percent Auto 5.6 % (2.6-8.5); Neutrophils Absolute Auto 4.2 K/mm3 (1.3-6.7); Neutrophils Percent Auto 71.5 % (45.5-73.1); Platelet Count Result 79 k/mm3 (150-375); Red Blood Count 4.17 M/mm3 (4.2-5.4); Red Cell Distribution Width 12.2 % (11.5-14.5); White Blood Count 5.9 K/mm3 (4.5-10.0)
[2023-12-23 16:16] LABS: Alanine Aminotransferase 31 U/L (6-35); Albumin Level 4.3 g/dL (3.5-5.1); Alkaline Phosphatase 67 U/L (38-126); Anion Gap 6 mmol/L (8-16); Aspartate Amino Transferase 32 U/L (14-36); Bilirubin,Total 0.6 mg/dL (0.2-1.3); Blood Urea Nitrogen 35 mg/dL (7-17); Calcium 9.5 mg/dL (8.4-10.2); Carbon Dioxide 23 mmol/L (22-30); Chloride 112 mmol/L (98-107); Cholesterol 167 mg/dL (0-200); Estimated Glomerular Filt Rate 48; Glucose 77 mg/dL (65-110); HDL Direct 79 mg/dL; Potassium 4.1 mmol/L (3.4-5.0); Sodium 141 mmol/L (137-145); Triglycerides 134 mg/dL (<150)
[2023-12-23 16:27] LABS: LDL Cholesterol Direct 57 mg/dL
[2023-12-23 16:30] LABS: Macrocytosis 1+ (NORMAL); Ovalocytes 1+ (NORMAL); Platelet Estimate Decreased (Adequate); Schistocytes None Seen (NORMAL)
== END 2023-12-23 15:06 | disposition home or self-care (01) ==
LOC: ANHLAB 15:10
PROVIDERS: PCP Family Medicine; Visit Provider Nurse Practitioner Family
DX: N18.32 Chronic kidney disease, stage 3b (principal); N28.89 Other specified disorders of kidney and ureter; E78.5 Hyperlipidemia, unspecified; C49.A0 Gastrointestinal stromal tumor, unspecified site; D63.0 Anemia in neoplastic disease
CPT/HCPCS: 36415; 80053; 80061; 85025; 85055

== ENCOUNTER 2024-03-10 16:18 | Observation (INO) | payer MEDICARE, SELFPAY ==
[2024-03-10] VITALS (10 sets, daily range): BP systolic 98–131; BP diastolic 54–66; PULSE 59–76; RESP 12–21; TEMP 35.9–36.4; O2SAT 97–100; BMI 31.2
--- NOTE | ~2024-03-10 | US_ITS ---
EXAMINATION: US carotid duplex BI DATE: 03/11/2024 18:43 INDICATION: Syncope TECHNIQUE: Grayscale, color Doppler, and pulsed Doppler images of the cervical carotid arteries were obtained. The degree of vessel stenosis is placed in one of the following categories: normal, <50%, 5 0-69%, >=70% but less than near-occlusion, near-occlusion, or total occlusion. Note that percent sten osis relative to normal distal artery lumen diameter is indirectly measured from velocity measurement s as described by Benson, et al. Radiology 2003; 229:340-346. COMPARISON: None. FINDINGS: RIGHT: The right common carotid artery (CCA) peak systolic velocity (PSV) is 88.9 cm/s. The right internal c arotid artery (ICA) PSV is 74.9 cm/s. The right ICA end-diastolic velocity (EDV) is 22.0 cm/s. The ri t ICA/CCA PSV ratio is 0.8. Grayscale and color Doppler images yield an estimate of less than 50% d iameter reduction from plaque in the ICA. The external carotid artery (ECA) PSV is 88.9 cm/s. There i s antegrade flow in the right vertebral artery. LEFT: The left CCA PSV is 92.8 cm/s. The left ICA PSV is 93.1 cm/s. The left ICA EDV is 25.6 cm/s. The left ICA/CCA PSV ratio is 1.0. Grayscale and color Doppler images yield an estimate of less than 50% diam eter reduction from plaque in the ICA. The ECA PSV is 91.5 cm/s. There is antegrade flow in the left vertebral artery. IMPRESSION: 1. Less than 50% stenosis in the right internal carotid artery. 2. Less than 50% stenosis in the left internal carotid artery. Reviewed, dictated and finalized at [facility]. Reviewed, dictated and finalized at location [facility].
--- NOTE | ~2024-03-10 | XR_ITS ---
EXAMINATION: XR chest 2V DATE: 03/10/2024 20:42 INDICATION: Syncope TECHNIQUE: frontal and lateral views of the chest were obtained. COMPARISON: Chest radiograph dated 05/11/2023 FINDINGS: The lungs remain clear with no focal airspace opacities, pulmonary edema, pleural effusion or pneumot horax. Heart size is normal. Tortuous thoracic aorta. Aortic valve repair. A safety pin also projects over the aortic valve repair on the lateral projection likely external to the patient and out of the [id number] on the frontal projection. Bilateral reverse total shoulder arthroplasties. Severe tho racic and lumbar spondylosis. IMPRESSION: 1. No acute cardiopulmonary disease. Reviewed, dictated and finalized at location [facility].
--- NOTE | ~2024-03-10 | XR_ITS ---
EXAMINATION: XR chest 1V portable DATE: 03/12/2024 14:18 INDICATION: Pneumonia. TECHNIQUE: A single frontal view of the chest was obtained. COMPARISON: Chest 2 views 03/10/24 FINDINGS: There is no pneumonia, pleural effusion, or pneumothorax. The heart is normal. There are bi lateral shoulder arthroplasties. IMPRESSION: 1. No acute cardiopulmonary disease. Reviewed, dictated and finalized at location [facility].
--- NOTE | ~2024-03-10 | CT_ITS ---
EXAMINATION: CT brain wo con DATE: 03/10/2024 17:47 INDICATION: Syncope TECHNIQUE: Computed tomography (CT) of the head was performed without intravenous contrast. Sagittal and coronal reconstructions were performed. The mA was adjusted according to patient size. Iterative reconstruction technique was employed. The dose-length product was 605.33 mGy-cm. COMPARISON: head CT dated 11/10/2023 FINDINGS: No acute intracranial hemorrhage, acute infarction or abnormal extra axial fluid collection. There is mild scattered white matter hypoattenuation consistent with chronic small vessel ischemic disease. Symmetric prominence of the sulci and subarachnoid spaces overlying the convexities consistent with m ild age-appropriate diffuse cerebral volume loss. Ventricles are normal and symmetric. No mass/mass effect. Changes of bilateral intraocular lens replacement. The orbits, paranasal sinuses and mastoid air cells are normal. Intracranial calcified cerebral atherosclerosis is noted. IMPRESSION: 1. No acute intracranial process. 2. Age-related changes including mild diffuse volume loss and mild scattered white matter hypoattenua tion consistent with chronic small vessel ischemic disease. Reviewed, dictated and finalized at location [facility]. IMPRESSION: 1. No acute intracranial process. 2. Age-related changes including mild diffuse volume loss and mild scattered wh ite matter hypoattenuation consistent with chronic small vessel ischemic diseas e.
--- NOTE | 2024-03-10 16:28 | ECG_ITS ---
SEE SCANNED COPY FOR CONFIRMED REPORT MTDD
[2024-03-10 17:05] LABS: Basophils Percent Auto 0.8 % (0.2-1.2); Eosinophils Absolute Auto 0.1 K/mm3 (0-0.3); Eosinophils Percent Auto 3.5 % (0-4.4); Hematocrit 37.4 % (37.0-47.0); Hemoglobin 12.1 g/dL (12.0-15.0); Immature Granulocyte Absolute 0.02 K/mm3 (0.00-0.031); Immature Granulocyte Percent A 0.5 % (0-0.5); Immature Platelet Fraction Pct 5.2 % (0.9-11.2); Lymphocytes Absolute Auto 0.75 K/mm3 (0.9-3.2); Lymphocytes Percent Auto 18.9 % (18.3-44.2); Mean Corpuscular HGB Conc 32.4 g/dl (32-36); Mean Corpuscular Hemoglobin 33.2 pg (26-34); Mean Corpuscular Volume 102.7 fl (80-100); Mean Platelet Volume 11.5 fl (7.4-10.4); Monocytes Absolute Auto 0.6 K/mm3 (0.1-0.6); Monocytes Percent Auto 13.9 % (2.6-8.5); Neutrophils Absolute Auto 2.5 K/mm3 (1.3-6.7); Neutrophils Percent Auto 62.4 % (45.5-73.1); Platelet Count Result 58 k/mm3 (150-375); Red Blood Count 3.64 M/mm3 (4.2-5.4); Red Cell Distribution Width 11.9 % (11.5-14.5)
[2024-03-10 17:16] LABS: Alanine Aminotransferase 20 U/L (6-35); Albumin Level 3.6 g/dL (3.5-5.1); Alkaline Phosphatase 57 U/L (38-126); Anion Gap 7 mmol/L (4-12); Aspartate Amino Transferase 25 U/L (14-36); Bilirubin,Total 0.6 mg/dL (0.2-1.3); Blood Urea Nitrogen 46 mg/dL (7-17); Carbon Dioxide 21 mmol/L (22-30); Chloride 113 mmol/L (98-107); Estimated CRCL calculation 34 ml/min; Estimated Glomerular Filt Rate 43; Glucose 122 mg/dL (65-110); Potassium 3.6 mmol/L (3.4-5.0); Sodium 141 mmol/L (137-145)
--- NOTE | 2024-03-10 17:36 | ED.SYNCOPE ---
HPI - Syncope General Chief Complaint: Syncope Stated Complaint: syncopal Time Seen by Provider: 03/10/24 17:15 Source: patient and family Mode of arrival: EMS Limitations: other (patient does not fully remember incident) History of Present Illness HPI narrative: This is an 83-year-old female that presents to the emergency department after syncopal episode today. Reports she was walking to the back around. She felt like she needed to have a bowel movement. She started to feel very off balance and lightheaded. Next thing she knew she was on the floor. She does not believe she hit her head. She did lose consciousness. Reports she was diagnosed with shingles yesterday. She has been on antivirals. She was scheduled for an echo today at [place], but they would not do it due to her having shingles. She was having this done as a follow-up after her recent aortic valve replacement about 1 year ago. Reports some mild abdominal discomfort currently. Denies fever, vision changes, chest pain, shortness of breath, palpitations, vomiting, numbness, weakness. Related Data Home Medications Medication Instructions Recorded Confirmed aspirin 81 mg tablet,delayed 81 mg PO DAILY 10/19/19 12/13/23 release (Adult Low Dose Aspirin) multivitamin 1 tablet PO DAILY 10/19/19 12/13/23 sertraline 100 mg tablet 100 mg PO DAILY 10/19/19 12/13/23 ascorbic acid (vitamin C) 1,000 mg 1 g PO DAILY 06/20/21 12/13/23 tablet atorvastatin 10 mg tablet (Lipitor) 10 mg PO DAILY 06/20/21 12/13/23 ferrous sulfate 325 mg (65 mg 325 mg PO DAILY 06/20/21 12/13/23 iron) tablet (Feosol) folic acid 400 mcg tablet 0.4 mg PO DAILY 06/20/21 12/13/23 clonazepam 0.5 mg tablet 0.5 mg PO DAILY PRN anxiety 02/25/22 12/13/23 dapagliflozin propanediol 10 mg 10 mg PO DAILY 03/22/23 12/13/23 tablet (Farxiga) metoprolol succinate 25 mg 12.5 mg PO DAILY 05/11/23 12/13/23 tablet,extended release 24 hr doxycycline hyclate PO BID 12/29/23 pl-dcl-WG-vit D-[id number]-[id number] PO DAILY 12/29/23 [PreserVision AREDS 2 Plus MV] Allergies Allergy/AdvReac Type Severity Reaction Status Date / Time adhesive Allergy Unknown Skin Verified 03/10/24 16:27 irritation Review of Systems Review of Systems: CONSTITUTIONAL: Denies fever EYES: Denies visual changes CARDIOVASCULAR: Denies chest pain, palpitations, or edema. RESPIRATORY: Denies dyspnea. GASTROINTESTINAL: Reports abdominal pain, nausea. Denies vomiting, or diarrhea. GENITOURINARY: Denies dysuria SKIN: Reports rash MUSCULOSKELETAL: Denies back pain, joint pain, or myalgia. NEUROLOGIC: Denies numbness, or weakness. All systems reviewed & are unremarkable except as noted in HPI and below PMFSH Past Medical History Medical History Aortic stenosis 1.3 cm2 07/04 BPPV (benign paroxysmal positional vertigo) Cataract Chronic kidney disease Dyslipidemia Left renal mass Megaloblastic anemia Nonischemic cardiomyopathy Obesity (BMI 30-39.9) Surgical History Surgical History H/O shoulder replacement H/O: hysterectomy History of tonsillectomy Status post transcatheter aortic valve replacement Total knee replacement status Family History Family History Father Family history of cardiovascular disease Family history of atrial fibrillation Family history of alcoholism Mother Family history of cardiovascular disease Family history of kidney disease Family history of mental disorder, Onset Age: 98 Sibling Family history of kidney disease Social History Social History Smoking packs per day: 1 Smoking cigarettes per day: 20.0 Years smoked: 15 Smoking pack-years: 15.00 Smoking status: Former smoker Tobacco type: cigarettes Second hand tobacco smoke exposure: Yes Smoking end date
[2024-03-10] MEDS: SODIUM CHLORIDE 0.9% IV 500 ML 250 ML IV CONT (17:57)
[2024-03-10] MEDS: ONDANSETRON INJ 4 MG/2 ML VIAL IV PUSH (17:57)
[2024-03-10 18:17] LABS: Troponin I 0.015 ng/mL (0.000-0.034)
[2024-03-10 19:09] LABS: Appearance Urine Cloudy (Clear); Bacteria Urine None Seen /hpf; Bilirubin Urine Negative (Negative); Blood Urine Negative (Negative); Budding Yeast Urine Present /hpf; Color Urine Yellow (Yellow); Glucose Urine UA 3+ mg/dL (Negative); Ketones Urine Negative (Negative); Leukocyte Esterase Ur 2+ LEU/UL (Negative); Need Manual Microscopic Reviewed; Nitrate Urine Negative (Negative); Protein Urine Trace mg/dL (Negative); RBC Urine 0-2 /hpf (0-2); Specific Grav Ur 1.028 (1.001-1.035); Squamous Epithelial Cell Urine Many /hpf (Few); WBC Urine 21-50 /hpf (0-3); pH Urine 5.5 (5.0-9.0)
[2024-03-10 19:10] LABS: Add Urine Microscopic? YES
--- NOTE | 2024-03-10 20:18 | PM.IMHP ---
H&P: HPI History of Present Illness Date/Time: 03/10/24 20:18 Chief Complaint: syncope Narrative: This is an 83-year-old female with history of aortic wall replacement, hyperlipidemia, brought to ED because the syncope patient went to bathroom after on, patient felt lightheadedness, and patient fell in the bathroom on the floor briefly. patient denied chest pain, shortness breath, sweating, palpitation, nausea vomiting before she passed out. Patient regained consciousness patient was on floor supported by her hand and knee. Patient denies hitting head. When patient moved to the chair, patient passed out briefly. Per patient's , patient did have jerking movement, and patient also denies confusion, urinary fecal incontinence. Patient went to [facility] in the morning for scheduled JONAS, patient had bioprosthetic aortic valve replaced in [facility] about 2 months ago. Later on patient was noticed to have vegetation/ blood clot under well, patient was started on Eliquis. patient went to [facility] for JONAS, patient found have shingles on left-sided the back. jonas was canceled. upon arrival in the ED, blood pressure was soft, 98/58, elevated BUN creatinine ratio 46/1.2. UA showed pyuria, cloudy urine. patient was afebrile upon arrival. Patient received fluid resuscitation, blood pressure became stable. patient received ceftriaxone 1 g in the ED Review of Systems Review of Systems: ROS negative except above PMFSH Past Medical History Medical History (Updated 03/10/24 @ 20:29 by Mateo Cavanaugh MD) Aortic stenosis 1.3 cm2 07/04 BPPV (benign paroxysmal positional vertigo) Cataract Chronic kidney disease Dehydration Dyslipidemia Left renal mass Megaloblastic anemia Nonischemic cardiomyopathy Obesity (BMI 30-39.9) Surgical History Surgical History H/O shoulder replacement H/O: hysterectomy History of tonsillectomy Status post transcatheter aortic valve replacement Total knee replacement status Family History Family History Father Family history of cardiovascular disease Family history of atrial fibrillation Family history of alcoholism Mother Family history of cardiovascular disease Family history of kidney disease Family history of mental disorder, Onset Age: 98 Sibling Family history of kidney disease Social History Social History Smoking packs per day: 1 Smoking cigarettes per day: 20.0 Years smoked: 15 Smoking pack-years: 15.00 Smoking status: Former smoker Tobacco type: cigarettes Second hand tobacco smoke exposure: Yes Smoking end date: 11/15/75 Alcohol intake: current Drinks per week: 2 Alcohol use details: a few drinks monthly Substance use: never Substance use type: does not use Do You Feel Safe in your Home?: Yes Lack of Transportation: No Lack of Food: Never True Current Housing: I Have Housing Concerned About Future Housing: No Difficulty Paying Gas/Electric Bills: No Difficulty Paying for Meds: No Currently Unemployed: No Education: Bachelor's Degree Difficulty w/ Childcare or Family Care: No Living arrangements: with family Gender identity (if verbalized by the patient): Female Spiritual care concerns: No Meds Home Medications and Allergies Home Medications Medication Instructions Recorded Confirmed Type aspirin 81 mg tablet,delayed 81 mg PO DAILY 10/19/19 12/13/23 History release (Adult Low Dose Aspirin) bupropion HCl 200 mg tablet,12 hr 200 mg PO Q12H #180 tabs 10/19/19 12/13/23 Rx sustained-release multivitamin 1 tablet PO DAILY 10/19/19 12/13/23 History sertraline 100 mg tablet 100 mg PO DAILY 10/19/19 12/13/23 History ascorbic acid (vitamin C) 1,000 mg 1 g PO DAILY 06/20/21 12/13/23 History tablet atorvastatin 10 mg
--- NOTE | 2024-03-10 21:35 | ADMGEN ---
This patient, Sandhya Burk, was admitted to 3 [facility] Room 327-01. Patient/family oriented to hospital policies and general routines including ID bracelet, bed and alarms, visiting hours, pain management, procedures, bathroom and other care routines, personal items, smoking policy, room service/diet, and visiting hours. Information on how to activate the Rapid Response Team has been discussed. Patient/Family are encouraged to report perceived risks to care and to ask questions if they do not understand what they are told or what they should do.
[2024-03-11] VITALS (8 sets, daily range): BP systolic 94–112; BP diastolic 50–66; PULSE 58–75; RESP 16–20; TEMP 36.8–37.5; O2SAT 97–98
[2024-03-11 06:19] LABS: Hematocrit 38.7 % (37.0-47.0); Hemoglobin 12.2 g/dL (12.0-15.0); Immature Platelet Fraction Pct 5.6 % (0.9-11.2); Mean Corpuscular HGB Conc 31.5 g/dl (32-36); Mean Corpuscular Hemoglobin 33.3 pg (26-34); Mean Corpuscular Volume 105.7 fl (80-100); Mean Platelet Volume 11.8 fl (7.4-10.4); Platelet Count Result 56 k/mm3 (150-375); Red Blood Count 3.66 M/mm3 (4.2-5.4); Red Cell Distribution Width 11.8 % (11.5-14.5); White Blood Count 3.8 K/mm3 (4.5-10.0)
[2024-03-11 06:33] LABS: Anion Gap 3 mmol/L (4-12); Blood Urea Nitrogen 33 mg/dL (7-17); Calcium 8.6 mg/dL (8.4-10.2); Carbon Dioxide 22 mmol/L (22-30); Chloride 113 mmol/L (98-107); Estimated CRCL calculation 36 ml/min; Estimated Glomerular Filt Rate 48; Glucose 88 mg/dL (65-110); Potassium 3.9 mmol/L (3.4-5.0); Sodium 138 mmol/L (137-145)
[2024-03-11] MEDS: ACYCLOVIR 400 MG TABLET PO (06:42)
[2024-03-11] MEDS: SODIUM CHLORIDE 0.9% IV 1,000 ML 100 ML IV CONT ×2 (06:42→16:49)
--- NOTE | 2024-03-11 08:23 | PM.IMPN ---
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 patient schedule have ZBIGNIEW today, is canceled because of shingles consult cardiology for evaluation treatment Will obtain patient medication history tomorrow provide Lovenox 1 milligram/kilos x1 03/11 resume Eliquis 5 mg b.i.d. p.o., discontinue Lovenox 1 milligram/kilos hypovolemic hypotension, dehydration received normal saline bolus in the ED, blood pressure became stable Continue normal saline IV Orthostatic test UTI UA shows pyuria Received ceftriaxone in the ED Follow-up urine culture hypertension Hold hypertension medication including metoprolol continue normal saline IV 125ml/h shingles on the right lower back patient is not Immunocompromised started acyclovir 500 mg t.i.d. p.o. resume home valacyclovir 1 g t.i.d. p.o. patient may stay more than 2 midnights in hospice Subjective Date/time seen: 03/11/24 08:23 Interval history: I saw and and examined patient today. patient denies dizziness, focal weakness, abnormal sensation. Also denies chest pain palpitation diarrhea. Patient is afebrile, blood pressure still soft Exam Narrative: GENERAL: Pleasant, in no acute distress. Well-nourished. - EYES: EOMI. Anicteric. - HENT: dry mucous membrane - LUNGS: Clear to auscultation bilaterally, no wheezing, rhonchi, or rales. - CARDIOVASCULAR: Regular rate and rhythm. No murmur. No JVD. - ABDOMEN: Soft, non-tender and non-distended. No palpable masses. - EXTREMITIES: No edema. Peripheral pulses 2+. Non-tender. - NEUROLOGIC: No focal neurological deficits. CN II-XII grossly intact. - PSYCHIATRIC: Awake, Alert and oriented x 3. Appropriate mood and affect. - SKIN: red rashes in cluster on the right low back - LYMPH: No cervical lymphadenopathy. Objective Data Vital Signs Vital Signs: Vital Signs - 24 hr 03/10/24 16:22 03/10/24 18:09 03/10/24 18:10 Temperature 97.5 F L Pulse Rate 62 76 71 Respiratory Rate 13 Blood Pressure 98/58 L 104/65 103/56 L Pulse Oximetry 99 Oxygen Delivery Room Air 03/10/24 18:10 03/10/24 18:54 03/10/24 19:01 Temperature Pulse Rate 74 61 71 Respiratory Rate 16 12 Blood Pressure 100/57 L 117/54 L 107/63 Pulse Oximetry 100 98 Oxygen Delivery 03/10/24 19:30 03/10/24 19:45 03/10/24 20:00 Temperature Pulse Rate 61 63 66 Respiratory Rate 19 17 21 H Blood Pressure Pulse Oximetry 100 98 98 Oxygen Delivery 03/10/24 20:25 03/10/24 20:25 03/10/24 20:25 Temperature Pulse Rate 63 63 Respiratory Rate 18 Blood Pressure 106/63 Pulse Oximetry 100 100 Oxygen Delivery Room Air 03/10/24 21:39 03/10/24 21:15 03/11/24 06:00 Temperature 96.6 F L 98.5 F Pulse Rate 59 L 58 L Respiratory Rate 18 16 Blood Pressure 131/66 112/64 Pulse Oximetry 97 97 Oxygen Delivery Room Air 03/11/24 06:00 03/11/24 06:11 03/11/24 06:11 Temperature
[2024-03-11] MEDS: ASCORBIC ACID 500 MG TABLET 1000 MG PO (10:19)
[2024-03-11] MEDS: EMPAGLIFLOZIN 25 MG TABLET PO (10:19)
[2024-03-11] MEDS: ATORVASTATIN 10 MG TABLET PO (10:19)
[2024-03-11] MEDS: ASPIRIN 81 MG ENTERIC TABLET PO (10:19)
[2024-03-11] MEDS: APIXABAN 5 MG TABLET PO ×2 (10:19→21:00)
[2024-03-11] MEDS: valACYclovir HCL 500 MG TABLET 1000 MG PO ×3 (10:20→16:49)
[2024-03-11] MEDS: FOLIC ACID 0.4 MG TABLET PO (10:20)
[2024-03-11] MEDS: FERROUS SULFATE 325 MG TABLET DR PO (10:20)
[2024-03-11] MEDS: buPROPion HCL SR (12HR) 100 MG TABCR 200 MG PO ×2 (13:21→21:00)
--- NOTE | 2024-03-11 15:03 | PM.CNCAR ---
Assessment and Plan Assessment and plan (1) Vasovagal syncope: Code(s): R55 - Syncope and collapse Status: Acute Assessment and Plan: Recurrent syncopal episode with preceding symptoms mother using the restroom in position change in setting of intravascular volume depletion, UTI, active shingles corroborated by acute on chronic kidney injury relative hypotension consistent with vasovagal etiology. No evidence for pathologic pauses, bradyarrhythmias contribution. Patient is not currently decompensated heart failure or endorsing anginal symptoms. She is receiving IV normal saline. Orthostatic vital signs have not been evaluated. I recommend orthostatic vital signs once patient is eating and drinking well and asymptomatic with position change. She has a history of relative hypotension with systolic blood pressures generally in the 90s to at most low 100s which has previously been limited optimization of guideline directed medical therapy for her history of nonischemic cardiomyopathy. Defer further workup and management to the primary service in this regard. Patient may follow-up as an outpatient. Call the office with a new concerns or questions. Will follow patient on an as-needed basis. No further cardiac workup indicated at this time. (2) Prosthetic valve dysfunction: Code(s): T82.09XA - Other mechanical complication of heart valve prosthesis, initial encounter Status: Acute Assessment and Plan: Incidentally noted increased velocities by surface echocardiogram and evidence of hypoattenuating leaflet thrombosis on CT TAVR at [facility]. For this she was started on Eliquis. She was scheduled for transesophageal echocardiogram which was canceled due to active shingles to be rescheduled upon resolution. This will not be performed at this hospital. This should be deferred to [facility] as they are managing her valvular dysfunction nor will change our management at this juncture. Furthermore, as we do not have cardiothoracic surgery at this institution and unable to perform more advanced percutaneous valvular procedures at this hospital will defer further workup as has already been planned. Continue Eliquis as has been recommended. Ambulate with caution. Avoid significant hypotension/intravascular volume depletion. (3) Nonischemic cardiomyopathy: Code(s): I42.8 - Other cardiomyopathies Status: Acute Assessment and Plan: History of LV dysfunction, however, EF 50% by echo 02/07/2024 at [facility]. Mean gradient aortic valve 36 mmHg no regurgitation. Echo 05/2023 EF 40% mean aortic valve gradient 13 mmHg. As an outpatient, patient has only been able to tolerate Jardiance 10 mg daily and Toprol XL 12.5 mg daily due to her history of relative hypotension. She was markedly bradycardic overnight currently stable. Resume Toprol XL 12.5 mg daily at discharge. (4) Fdwbt-vs-pehezuw kidney injury: Code(s): N17.9 - Acute kidney failure, unspecified; N18.9 - Chronic kidney disease, unspecified Status: Acute Assessment and Plan: IV fluid support. Monitor volume status. Recheck BMP in a.m.. Discontinue IV fluids with patient is euvolemic. Check orthostatic vital signs now and in a.m.. If patient asymptomatic, hemodynamically stable disposition per hospitalist service. No further invasive cardiovascular workup anticipated at this time unless new or significant persistent concerns. (5) UTI (urinary tract infection): Code(s): N39.0 - Urinary tract infection, site not specified Status: Acute Assessment and Plan: Management per primary service. Patient received 1 dose of IV ceftriaxone. (6) Shingles: Code(s): B02.9 - Zoster without complications Status: Acute Assessment and Plan: Management per primary service. [place] 6 Advair. (7) S/P TAVR (transcatheter aortic valve replacement): Code(s): Z95.2 - Presence of prosthetic heart valve Status: Acut
[2024-03-12] VITALS (10 sets, daily range): BP systolic 103–118; BP diastolic 45–69; PULSE 62–91; RESP 16–20; TEMP 36.3–38.1; O2SAT 97–100
[2024-03-12] MEDS: SODIUM CHLORIDE 0.9% IV 1,000 ML 100 ML IV CONT (01:00)
[2024-03-12 07:07] LABS: Anion Gap 6 mmol/L (4-12); Blood Urea Nitrogen 27 mg/dL (7-17); Calcium 8.2 mg/dL (8.4-10.2); Carbon Dioxide 18 mmol/L (22-30); Chloride 116 mmol/L (98-107); Estimated CRCL calculation 36 ml/min; Estimated Glomerular Filt Rate 48; Glucose 88 mg/dL (65-110); Potassium 3.8 mmol/L (3.4-5.0); Sodium 140 mmol/L (137-145)
[2024-03-12] MEDS: valACYclovir HCL 500 MG TABLET 1000 MG PO ×3 (09:10→17:09)
[2024-03-12] MEDS: ATORVASTATIN 10 MG TABLET PO (09:10)
[2024-03-12] MEDS: FOLIC ACID 0.4 MG TABLET PO (09:11)
[2024-03-12] MEDS: ASPIRIN 81 MG ENTERIC TABLET PO (09:11)
[2024-03-12] MEDS: APIXABAN 5 MG TABLET PO ×2 (09:11→21:16)
[2024-03-12] MEDS: buPROPion HCL SR (12HR) 100 MG TABCR 200 MG PO ×2 (09:11→21:16)
[2024-03-12] MEDS: ASCORBIC ACID 500 MG TABLET 1000 MG PO (09:11)
[2024-03-12] MEDS: EMPAGLIFLOZIN 25 MG TABLET PO (09:11)
[2024-03-12] MEDS: FERROUS SULFATE 325 MG TABLET DR PO (09:11)
--- NOTE | 2024-03-12 09:58 | PM.IMPN ---
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 possible related to her age and multiple comorbidities 03/12 try low-dose midodrine 2.5 mg daily p.o. compression sucks low grade fever, leukopenia white blood cells 3.8k chest x-ray shows no acute cardiopulmonary issues, urinalysis unremarkable patient denies abdomen pain, nausea vomiting diarrhea dysuria possible cellulitis of right lower back superimposed imposed with shingle follow-up blood culture Monitor vital signs closely start doxycycline 100 mg q.12 hours p.o., cefazolin 1 g q.8 hours IV recent aortic valve replacement with possible vegetation/clot? patient schedule have ZBIGNIEW today, is canceled because of shingles consult cardiology for evaluation treatment Will obtain patient medication history tomorrow provide Lovenox 1 milligram/kilos x1 03/11 resume Eliquis 5 mg b.i.d. p.o., discontinue Lovenox 1 milligram/kilos hypovolemic hypotension, dehydration received normal saline bolus in the ED, blood pressure became stable Continue normal saline IV Orthostatic test: positive 03/12 blood pressure stable now, discontinue normal saline IV UTI UA shows pyuria Received ceftriaxone in the ED Follow-up urine culture hypertension Hold hypertension medication including metoprolol continue normal saline IV 125ml/h shingles on the right lower back patient is not Immunocompromised started acyclovir 500 mg t.i.d. p.o. resume home valacyclovir 1 g t.i.d. p.o. patient may stay more than 2 midnights in hospice may discharge patient tomorrow if blood pressure stable Subjective Date/time seen: 03/12/24 09:58 Interval history: I saw and and examined patient today. patient denies dizziness, focal weakness, abnormal sensation. Also denies chest pain palpitation abdomen pain, nausea vomiting,diarrhea or dysuria. patient has low-grade fever of unknown, chest x-ray showed no acute cardiopulmonary issues, urinalysis unremarkable Exam Narrative: GENERAL: Pleasant, in no acute distress. Well-nourished. - EYES: EOMI. Anicteric. - HENT: dry mucous membrane - LUNGS: Clear to auscultation bilaterally, no wheezing, rhonchi, or rales. - CARDIOVASCULAR: Regular rate and rhythm. No murmur. No JVD. - ABDOMEN: Soft, non-tender and non-distended. No palpable masses. - EXTREMITIES: No edema. Peripheral pulses 2+. Non-tender. - NEUROLOGIC: No focal neurological deficits. CN II-XII grossly intact. - PSYCHIATRIC: Awake, Alert and oriented x 3. Appropriate mood and affect. - SKIN: red rashes in cluster on the right low back - LYMPH: No cervical lymphadenopathy. Objective Data Vital Signs Vital Signs: Vital Signs - 24 hr 03/11/24 13:58 03/11/24 12:00 03/11/24 16:00 Temperature 98.3 F Pulse Rate 70 66 67 Respiratory Rate 20 Blood Pressure 104/66 Pulse Oximetry 97 Oxygen Delivery 03/11/24 20:00 03/11/24 20:3
[2024-03-12] MEDS: MIDODRINE HCL 2.5 MG TABLET PO ×2 (13:39→17:09)
[2024-03-12 15:50] LABS: Appearance Urine Clear (Clear); Bilirubin Urine Negative (Negative); Blood Urine Negative (Negative); Color Urine Yellow (Yellow); Glucose Urine UA 2+ mg/dL (Negative); Ketones Urine Negative (Negative); Leukocyte Esterase Ur Negative LEU/UL (Negative); Nitrate Urine Negative (Negative); Protein Urine Negative (Negative); Specific Grav Ur 1.009 (1.001-1.035); Urobilinogen Urine 0.2 mg/dL (<2.0); pH Urine 5.5 (5.0-9.0)
[2024-03-12] MEDS: ACETAMINOPHEN 325 MG TABLET 650 MG PO (15:58)
[2024-03-12 15:59] LABS: Add Urine Microscopic? NO
[2024-03-12] MEDS: DOXYCYCLINE 100 MG/NS 100 ML 100 MG/100 ML BAG IVPB (17:09)
[2024-03-12 17:45] LABS: Procalcitonin 0.1 ng/mL
[2024-03-12] MEDS: ceFAZolin 1 GM/NS 50 ML 1 GM/50 ML BAG IVPB (21:13)
[2024-03-13] VITALS: PULSE 76
[2024-03-13 04:00] VITALS: PULSE 79
[2024-03-13 04:15] VITALS: BP 131/68; PULSE 72; RESP 16; TEMP 36.3; O2SAT 94
[2024-03-13] MEDS: DOXYCYCLINE 100 MG/NS 100 ML 100 MG/100 ML BAG IVPB (05:22)
[2024-03-13] MEDS: ceFAZolin 1 GM/NS 50 ML 1 GM/50 ML BAG IVPB (05:22)
[2024-03-13 08:00] VITALS: PULSE 75
[2024-03-13 08:38] LABS: Basophils Percent Auto 0.6 % (0.2-1.2); Eosinophils Absolute Auto 0.2 K/mm3 (0-0.3); Eosinophils Percent Auto 6.4 % (0-4.4); Hemoglobin 11.3 g/dL (12.0-15.0); Immature Granulocyte Absolute 0.01 K/mm3 (0.00-0.031); Immature Granulocyte Percent A 0.3 % (0-0.5); Immature Platelet Fraction Pct 4.3 % (0.9-11.2); Lymphocytes Percent Auto 40.7 % (18.3-44.2); Mean Corpuscular HGB Conc 31.4 g/dl (32-36); Mean Corpuscular Hemoglobin 33.1 pg (26-34); Mean Corpuscular Volume 105.6 fl (80-100); Monocytes Absolute Auto 0.4 K/mm3 (0.1-0.6); Monocytes Percent Auto 12.2 % (2.6-8.5); Neutrophils Absolute Auto 1.4 K/mm3 (1.3-6.7); Neutrophils Percent Auto 39.8 % (45.5-73.1); Platelet Count Result 57 k/mm3 (150-375); Red Blood Count 3.41 M/mm3 (4.2-5.4); Red Cell Distribution Width 11.9 % (11.5-14.5); White Blood Count 3.4 K/mm3 (4.5-10.0)
[2024-03-13 08:50] LABS: Alanine Aminotransferase 16 U/L (6-35); Albumin Level 3.1 g/dL (3.5-5.1); Alkaline Phosphatase 50 U/L (38-126); Anion Gap 1 mmol/L (4-12); Aspartate Amino Transferase 25 U/L (14-36); Bilirubin,Total 0.4 mg/dL (0.2-1.3); Blood Urea Nitrogen 26 mg/dL (7-17); Calcium 8.4 mg/dL (8.4-10.2); Carbon Dioxide 22 mmol/L (22-30); Chloride 115 mmol/L (98-107); Estimated CRCL calculation 36 ml/min; Estimated Glomerular Filt Rate 48; Glucose 88 mg/dL (65-110); Potassium 4.1 mmol/L (3.4-5.0); Sodium 138 mmol/L (137-145)
[2024-03-13] MEDS: ATORVASTATIN 10 MG TABLET PO (09:12)
[2024-03-13] MEDS: buPROPion HCL SR (12HR) 100 MG TABCR 200 MG PO (09:12)
[2024-03-13] MEDS: MIDODRINE HCL 2.5 MG TABLET PO ×2 (09:12→12:32)
[2024-03-13] MEDS: ASPIRIN 81 MG ENTERIC TABLET PO (09:12)
[2024-03-13] MEDS: APIXABAN 5 MG TABLET PO (09:12)
[2024-03-13] MEDS: FOLIC ACID 0.4 MG TABLET PO (09:13)
[2024-03-13] MEDS: FERROUS SULFATE 325 MG TABLET DR PO (09:13)
[2024-03-13] MEDS: EMPAGLIFLOZIN 25 MG TABLET PO (09:13)
[2024-03-13] MEDS: valACYclovir HCL 500 MG TABLET 1000 MG PO ×2 (09:13→12:32)
[2024-03-13] MEDS: ASCORBIC ACID 500 MG TABLET 1000 MG PO (09:13)
[2024-03-13 12:00] VITALS: PULSE 69
--- NOTE | 2024-03-13 13:03 | PCSTNOTE ---
Please refer to the Bedside Swallow Evaluation in the EMR. Please note, silent aspiration cannot be ruled out at bedside.
--- NOTE | 2024-03-13 13:53 | PM.DS ---
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 possible related to her age and multiple comorbidities 03/12 try low-dose midodrine 2.5 mg daily p.o. compression stockings low grade fever, leukopenia white blood cells 3.8k chest x-ray shows no acute cardiopulmonary issues, urinalysis unremarkable patient denies abdomen pain, nausea vomiting diarrhea dysuria possible cellulitis of right lower back superimposed imposed with shingle follow-up blood culture Monitor vital signs closely start doxycycline 100 mg q.12 hours p.o recent aortic valve replacement with possible vegetation/clot? patient schedule have JONAS today, is canceled because of shingles consult cardiology for evaluation treatment Will obtain patient medication history tomorrow provide Lovenox 1 milligram/kilos x1 03/11 resume Eliquis 5 mg b.i.d. p.o hypovolemic hypotension, dehydration received normal saline bolus in the ED, blood pressure became stable Continue normal saline IV Orthostatic test: positive 03/12 blood pressure stable now UTI UA shows pyuria Received ceftriaxone in the ED transition to oral ABX on DC Follow-up urine culture hypertension Hold hypertension medication including metoprolol orthostatics are negative now shingles on the right lower back patient is not Immunocompromised started acyclovir 500 mg t.i.d. p.o. resume home valacyclovir 1 g t.i.d. p.o. DS: Summary Hospital Course Hospital Course: 83-year-old female with history of aortic wall replacement, hyperlipidemia, brought to ED because the syncope patient went to bathroom after on, patient felt lightheadedness, and patient fell in the bathroom on the floor briefly. ? patient denied chest pain, shortness? breath, sweating, palpitation, nausea vomiting before she passed out.? Patient regained consciousness patient was on floor supported by her hand and knee.? Patient denies hitting head.? When patient moved to the chair, patient passed out briefly.? Per patient's , patient did have jerking movement, and patient also denies confusion, urinary fecal incontinence.? Patient went to [facility] in the morning for scheduled JONAS, patient had ? bioprosthetic aortic valve? replaced? in [facility] about 2 months ago.? Later on patient was noticed to have vegetation/ blood clot under well, patient was started on Eliquis. ? patient went to [facility] for JONAS, patient found have shingles on? left-sided the back. ? jonas was canceled. ? upon arrival in the ED, blood pressure was soft, 98/58, elevated BUN creatinine ratio 46/1.2. ? UA showed pyuria, cloudy urine. ? patient was afebrile upon arrival.? Patient received fluid resuscitation, blood pressure became stable. ? patient received ceftriaxone 1 g in the ED syncope possibly secondary to hypotension, vasovagal syncope,
[2024-03-13 13:56] VITALS: BP 116/57; PULSE 69; RESP 18; TEMP 36.8; O2SAT 97
--- NOTE | 2024-03-17 11:54 | PCCARD ---
EKG ORDERED 03/10/24 @ 20:30 DOES NOT APPEAR TO HAVE BEEN DONE - CARDIAC MONITORING WAS DOCUMENTED INSTEAD. CANCELLING THIS EKG ORDER NOT DONE
== END 2024-03-13 15:35 | disposition home or self-care (01) ==
LOC: ANHED 20:23 → ANH3MEDSUR 21:19
PROVIDERS: Student in an Organized Health Care Education/Training Program; Admitting Provider Hospitalist; Emergency Provider Physician Assistant; PCP Family Medicine; Visit Provider Family Medicine
DX: R55 Syncope and collapse (principal); B02.9 Zoster without complications; N39.0 Urinary tract infection, site not specified; T82.09XA Other mechanical complication of heart valve prosthesis, initial encounter; D69.6 Thrombocytopenia, unspecified; N17.9 Acute kidney failure, unspecified; I12.9 Hypertensive chronic kidney disease with stage 1 through stage 4 chronic kidney disease, or unspecified chronic kidney disease; N18.9 Chronic kidney disease, unspecified; E86.0 Dehydration; I42.8 Other cardiomyopathies; I33.0 Acute and subacute infective endocarditis; E87.5 Hyperkalemia; E86.1 Hypovolemia; E78.5 Hyperlipidemia, unspecified; Z95.2 Presence of prosthetic heart valve; Z79.82 Long term (current) use of aspirin; Z79.84 Long term (current) use of oral hypoglycemic drugs; Z87.891 Personal history of nicotine dependence; Y83.8 Other surgical procedures as the cause of abnormal reaction of the patient, or of later complication, without mention of misadventure at the time of the procedure; E66.9 Obesity, unspecified; Z68.31 Body mass index [BMI] 31.0-31.9, adult
CPT/HCPCS: 36415; 70450; 71045; 71046; 80048; 80053; 81001; 81003; 84145; 84484; 85025; 85027; 85055; 87086; 87088; 92610; 93005; 93880; 96361; 96365; 96367; 96375; 99285; A9270; G0378; J0690; J0696; J2405; J7030; J7040

== ENCOUNTER 2024-04-13 16:02 | Outpatient (CLI) | payer MEDICARE, SELFPAY ==
[2024-04-13 18:05] LABS: Anion Gap 6 mmol/L (4-12); Blood Urea Nitrogen 31 mg/dL (7-17); Calcium 9.7 mg/dL (8.4-10.2); Carbon Dioxide 23 mmol/L (22-30); Chloride 109 mmol/L (98-107); Estimated Glomerular Filt Rate 39; Glucose 106 mg/dL (65-110); Potassium 4.6 mmol/L (3.4-5.0); Sodium 138 mmol/L (137-145)
[2024-04-13 19:02] LABS: Parathyroid Intact 69.4 pg/mL (7.5-53.5)
[2024-04-13 19:08] LABS: Vitamin D 25 Hydroxy 38.9 ng/mL
[2024-04-13 19:42] LABS: Creatinine Urine 301.9 mg/dL; Total Protein Urine Random 7 mg/dL; Ur Ttl Prot Creatinine Ratio 0.02 mg/mg (0-0.20)
== END 2024-04-13 16:03 | disposition home or self-care (01) ==
PROVIDERS: PCP Family Medicine; Visit Provider Internal Medicine Nephrology
DX: E55.9 Vitamin D deficiency, unspecified (principal); N18.31 Chronic kidney disease, stage 3a; N25.81 Secondary hyperparathyroidism of renal origin
CPT/HCPCS: 36415; 80069; 82306; 82570; 83970; 84156

== ENCOUNTER 2024-07-01 13:34 | Outpatient (CLI) | payer MEDICARE, SELFPAY ==
[2024-07-01 14:24] LABS: Add Urine Microscopic? YES; Appearance Urine Clear (Clear); Bacteria Urine None Seen /hpf; Bilirubin Urine Negative (Negative); Blood Urine Negative (Negative); Color Urine Yellow (Yellow); Glucose Urine UA Negative (Negative); Ketones Urine Negative (Negative); Leukocyte Esterase Ur 1+ LEU/UL (Negative); Need Manual Microscopic Reviewed; Nitrate Urine Negative (Negative); Protein Urine Trace mg/dL (Negative); RBC Urine 0-2 /hpf (0-2); Specific Grav Ur 1.025 (1.001-1.035); Squamous Epithelial Cell Urine Few /hpf (Few); WBC Urine 0-5 /hpf (0-3); pH Urine 5.5 (5.0-9.0)
== END 2024-07-01 13:35 | disposition home or self-care (01) ==
LOC: ANHLAB 13:36
PROVIDERS: PCP Family Medicine; Visit Provider Family Medicine
DX: R42 Dizziness and giddiness (principal); R53.83 Other fatigue; N18.31 Chronic kidney disease, stage 3a
CPT/HCPCS: 81001; 87077; 87086; 87088; 87181

== ENCOUNTER 2024-07-10 06:39 | Outpatient (CLI) | payer MEDICARE, SELFPAY ==
--- NOTE | ~2024-07-10 | MR_ITS ---
MRI of the abdomen: Clinical indication: Abdominal pain. Technique: Coronal SSFSE ARC, WATER:coronal LAVA-FLEX, Coronal 2D FIESTA FatSat, Axial SSFSE BH ARC, Axial 3D DualEcho BH, Axial SSFSE-IR, Axial DWI b=500, Axial 2D FIESTA FatSat, pre and dynamic postco ntrast Axial LAVA ARC, postcontrast Coronal In and Opposed phase LAVA FLEX. Following intravenous adm inistration of 16 cc MultiHance gadolinium, T1-weighted fat-sat imaging was performed in the axial an d coronal planes. COMPARISON: CT scan dated 05/11/2023 Findings: Large gallstone measures 3.7 cm in diameter. No gallbladder wall thickening. The common berto e duct is normal in course and caliber. No filling defects are seen within the CBD. No evidence of in trahepatic biliary ductal dilatation. The pancreatic duct is normal in size. 3.9 cm simple left hepatic lobe cyst present. The spleen, pancreas, adrenals, left kidney appear norm al. There is a 1.8 cm mass at the medial aspect of the right kidney, with questionable focal tiny are a of fat. Lesion is essentially stable in size as compared to prior CT scan. The aorta and the paraao rtic regions appear normal. 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 Stability since 05/11/2023 is a reassuring sign. Giv en relatively small size and stability over the course of one year, continued imaging follow-up is re commended rather than more aggressive intervention at this time. Cholelithiasis. Stable simple left hepatic lobe cyst. Reviewed, dictated and finalized at [facility]. 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 Stability since 05/11/2023 is a reassuring sign. Given relatively small size and stability over the course of one year, continued imaging follow-up is recommended rather than more aggressi ve intervention at this time. Cholelithiasis. Stable simple left hepatic lobe cyst.
== END 2024-07-10 06:40 | disposition home or self-care (01) ==
PROVIDERS: PCP Family Medicine; Visit Provider Family Medicine
DX: N28.89 Other specified disorders of kidney and ureter (principal); K80.20 Calculus of gallbladder without cholecystitis without obstruction
CPT/HCPCS: 74183; A9577

== ENCOUNTER 2024-08-14 15:40 | Outpatient (CLI) | payer MEDICARE, SELFPAY ==
[2024-08-14 16:15] LABS: Albumin Level 3.6 g/dL (3.5-5.1); Anion Gap 7 mmol/L (4-12); Blood Urea Nitrogen 36 mg/dL (7-17); Carbon Dioxide 27 mmol/L (22-30); Chloride 109 mmol/L (98-107); Estimated Glomerular Filt Rate 33; Glucose 104 mg/dL (65-110); Phosphorus 3.7 mg/dL (2.5-4.5); Potassium 3.8 mmol/L (3.4-5.0); Sodium 143 mmol/L (137-145)
[2024-08-14 16:34] LABS: Creatinine Urine 43.4 mg/dL; Total Protein Urine Random 9 mg/dL; Ur Ttl Prot Creatinine Ratio 0.21 mg/mg (0-0.20)
== END 2024-08-14 15:41 | disposition home or self-care (01) ==
LOC: ANHLAB 15:44
PROVIDERS: PCP Family Medicine; Visit Provider Internal Medicine Nephrology
DX: N18.32 Chronic kidney disease, stage 3b (principal)
CPT/HCPCS: 36415; 80069; 82570; 84156

== ENCOUNTER 2025-01-16 16:30 | Outpatient (CLI) | payer MEDICARE, SELFPAY ==
[2025-01-16 17:08] LABS: Hematocrit 41.8 % (37.0-47.0); Hemoglobin 13.7 g/dL (12.0-15.0); Immature Platelet Fraction Pct 5.8 % (0.9-11.2); Mean Corpuscular HGB Conc 32.8 g/dl (32-36); Mean Corpuscular Hemoglobin 33.5 pg (26-34); Mean Corpuscular Volume 102.2 fl (80-100); Mean Platelet Volume 10.7 fl (7.4-10.4); Platelet Count Result 72 k/mm3 (150-375); Red Blood Count 4.09 M/mm3 (4.2-5.4); White Blood Count 7.7 K/mm3 (4.5-10.0)
[2025-01-16 17:14] LABS: Total Protein Urine Random 6 mg/dL; Ur Ttl Prot Creatinine Ratio 0.08 mg/mg (0-0.20)
[2025-01-16 17:17] LABS: Alanine Aminotransferase 25 U/L (6-35); Albumin Level 3.8 g/dL (3.5-5.1); Albumin Level 3.9 g/dL (3.5-5.1); Alkaline Phosphatase 63 U/L (38-126); Anion Gap 7 mmol/L (4-12); Anion Gap 8 mmol/L (4-12); Aspartate Amino Transferase 30 U/L (14-36); Bilirubin,Total 0.5 mg/dL (0.2-1.3); Blood Urea Nitrogen 39 mg/dL (7-17); Blood Urea Nitrogen 41 mg/dL (7-17); Calcium 8.7 mg/dL (8.4-10.2); Calcium 8.9 mg/dL (8.4-10.2); Carbon Dioxide 23 mmol/L (22-30); Carbon Dioxide 25 mmol/L (22-30); Chloride 111 mmol/L (98-107); Chloride 112 mmol/L (98-107); Estimated Glomerular Filt Rate 41; Glucose 108 mg/dL (65-110); Glucose 116 mg/dL (65-110); Phosphorus 3.5 mg/dL (2.5-4.5); Potassium 4.4 mmol/L (3.4-5.0); Sodium 143 mmol/L (137-145)
[2025-01-16 17:28] LABS: Hemoglobin A1C 4.7 % (<5.7)
[2025-01-16 17:29] LABS: Parathyroid Intact 119.7 pg/mL (14.5-75.2)
[2025-01-16 18:24] LABS: Folic Acid 14.4 ng/mL (2.76->20); Vitamin B12 > 1000.0 pg/mL (239-931)
== END 2025-01-16 16:31 | disposition home or self-care (01) ==
PROVIDERS: PCP Family Medicine; Visit Provider Internal Medicine Nephrology
DX: F33.9 Major depressive disorder, recurrent, unspecified (principal); N28.89 Other specified disorders of kidney and ureter; E86.1 Hypovolemia; R42 Dizziness and giddiness; D69.6 Thrombocytopenia, unspecified; R55 Syncope and collapse; R79.89 Other specified abnormal findings of blood chemistry; R73.09 Other abnormal glucose; N18.32 Chronic kidney disease, stage 3b; N25.81 Secondary hyperparathyroidism of renal origin; E55.9 Vitamin D deficiency, unspecified
CPT/HCPCS: 36415; 80053; 80069; 82306; 82570; 82607; 82746; 83036; 83970; 84156; 84443; 85027; 85055

== ENCOUNTER 2025-07-05 17:41 | Outpatient (CLI) | payer MEDICARE, SELFPAY ==
--- OUTSIDE RECORDS SUMMARY | 2025-07-05 17:43 | XMS_ITS | Encounter Summary ---
Author Organization [facility] Address [address] [place] [address] Phone Care Team Providers Care Metal Mixer Name Role Phone Dandy BOB MD, Jori Woodard Unavailable [phone] Joseph Rubalcava MD Unavailable [phone] Aly Casey MD Primary Care Provider [phone] Imani Chau RN Unavailable [phone] Liam Holm MD Unavailable [phone] Easton Freeman MD Unavailable [phone] Jori Guzmán MD PhD Unavailable [phone] Waylon Agarwal MD Primary Care Provider [phone] Waylon Agarwal MD Primary Care Provider [phone] Encounter Details Date Type Department Care Team (Latest Contact Info) Description 01/31/2021 Orders Only [facility] Scanning, Provider Social History Tobacco Use Types Packs/Day Years Used Date Smoking Tobacco: Former Cigarettes 0.5 19 1 959 - 1977 Smokeless Tobacco: Never Alcohol Use Standard Drinks/Week Comments Yes 1 (1 standard drink = 0.6 oz pur e alcohol) Occ. 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 Gender Identity Female 06/24/2022 4:25 PM CDT Sexual Orientation Straight 06/24/2022 4: 25 PM CDT documented as of this encounter Plan of Treatment Not on file documented as of this encounter Procedures Procedure Name Priority Date/Time Associated Diagnosis Comments SCAN - LABS 01/31/2021 documented in this encounter Results * SCAN - LABS (01/31/2021) us Provider Scanning Final Result documented in this encounter Visit Diagnoses Not on filedocumented in this encounter Additional Health Concerns Infection Onset Date Last Indicated Resolved Time Varicella/Zoster, contact + airborne Comment:Pt positive for Varicella at urgent care on 03/09; waiting to hear back about dissemination status. 03/10/2024 03/10/2024 024 3:06 AM CDT documented as of this encounter Care Teams Metal Mixer Relationship Specialty Start Date End Date Aly Casey MD [address] [place] [address] PCP - General 03/28/18 04/05/23 Waylon Agarwal MD [address] [place] [address] PCP - General Family Practice 04/06/23 06/14/24 Waylon Agarwal MD [address] [place] [address] PCP - General Family Practice 06/15/24 Jori Dorman III, MD [address] [place] [address] Consulting Physician Rheumatology 12/21/17 Joseph Rubalcava MD [address] [facility] [address] [place] [address] Referring Physician Nephrology 03/21/18 04/14/21 Imani Chau RN [address] [facility] [address] [place] [address] [facility] Outpatient Deputy Sheriff/Investigator 05/19/21 05/19/21 Liam Holm MD [address] [facility] [address] [place] [address] Referring Physician Cardiology 11/24/22 Easton Freeman MD [address] [facility] [address] [place] [address] Cardiothoracic Surgery 01/08/23 Jori Guzmán MD PhD [address] [place] [address] Referring Physician Cardiology 01/08/23 documented as of this encounter
--- OUTSIDE RECORDS SUMMARY | 2025-07-05 17:43 | XMS_ITS | Encounter Summary ---
Author Organization [facility] Address [address] [place] [address] Care Team Providers Care Electronic Warfare Operator Name Role Phone Dandy BOB MD, Jori Woodard Unavailable [phone] Liam Holm MD Unavailable [phone] Easton Freeman MD Unavailable [phone] Jori Guzmán MD PhD Unavailable [phone] Waylon Agarwal MD Primary Care Provider [phone] Encounter Details Date Type Department Care Team (Late st Contact Info) Description 06/22/2025 Telephone [facility] Cardiology [address] [place] [address] Randy Corona MD [address] [facility] [address] [facility] [address] [place] [address] Social History Tobacco Use Types Packs/Day Years Used Date Smoking Tobacco: Former Cigarettes 0.5 19 1 959 - 1977 Passive Smoke Exposure: Past Smokeless Tobacco: Never Alcohol Use Standard Drinks/Week Comments Yes 1 (1 standard drink = 0.6 oz pur e alcohol) Occ. wine cooler AUDIT-C Answer Date Recorded Q1: How often do you have a drink containing alc ohol? Monthly or less 01/07/2023 Q2: How many drinks containi ng alcohol do you have on a typical day when you are drinking? 1 or 2 01/07/2023 Q3: How often do you have si x or more drinks on one occasion? Never 01/07/2023 Personal Safety Answer Date Recorded Have you ever been in or are you currently in a harmful physical or emotional relationship or is someone making you feel afraid or unsafe? Denies 04/27/2024 Comments No Sex and Gender Information Value Date Recorded Sex Assigned at Not on file Legal Sex Female 9:30 PM HEAD OF MARKETING Gender Identity Female 06/24/2022 4:25 PM CDT Sexual Orientation Straight 06/24/2022 4: 25 PM CDT documented as of this encounter Miscellaneous Notes * Telephone Encounter - Lizzie Johnson MA - 06/25/2025 10:56 AM CDT Spoke with pt and she prefers to follow up with us bc of the difficult drive to [facility]. Refill sent * Telephone Encounter - Lizzie Johnson MA - 06/25/2025 9:[address] Corona, Will you be prescribing pt's Eliquis? * Telephone Encounter - Marli Sweeney - 06/22/2025 1:16 PM CDT Patient requesting refill for Eliquis 5 mg with 90 day supply. Please send to [facility] in [place]. Pt has been out for a week now. Contact: documented in this encounter Plan of Treatment Not on file documented as of this encounter Visit Diagnoses Not on filedocumented in this encounter Care Teams Electronic Warfare Operator Relationship Specialty Start Date End Date Waylon Agarwal MD [address] [place] [address] PCP - General Family Practice 06/15/24 Jori Dorman III, MD [address] [place] [address] Consulting Physician Rheumatology 12/21/17 Liam Holm MD [address] [place] [address] Referring Physician Cardiology 11/24/22 Easton Freeman MD [address] [place] [address] Cardiothoracic Surgery 01/08/23 Jori Guzmán MD PhD [address] [place] [address] Referring Physician Cardiology 01/08/23 documented as of this encounter
--- OUTSIDE RECORDS SUMMARY | 2025-07-05 17:43 | XMS_ITS | Patient Health Record ---
Author Organization [facility] Address [address] [place], [place] [address] Care Team Providers Care Theatre Program Director Name Role Phone ALBIN VIVEROS Unavailable [phone] Tessa Palmer Unavailable Unavailable Reason For Referral No Information Medications Medication SIG (Take, Route, Frequency, Duration) Notes Start Date End Date Status lamoTRIgine 100 MG Oral Tablet ORAL lamotrigine 100 MG Oral TabletOriginal Medicationlamotrigine 100 MG Oral Tablet *Reorder from [employer] for eRx and Interaction Alerts* 12/11/2016 Active sertraline 100 MG Oral Tablet ORAL sertraline 100 MG Oral TabletOriginal Medicationsertraline 100 MG Oral Tablet *Reorder from [employer] for eRx and Interaction Alerts* 12/11/2016 Active bupropion hydrochloride 100 MG Oral Tablet ORAL bupropion hydrochloride 100 MG Oral TabletOriginal Medicationbupropion hydrochloride 100 MG Oral Tablet *Reorder from [employer] for eRx and Interaction Alerts* 12/11/2016 Active Plan Of Treatment No Information Insurance Providers Payer Name Payer Address Payer Phone Subscriber Number Group Number Insured Name Patient Relationship to Insured Coverage Start Date Coverage End Date [facility] [address] [address] [place] [address] [id number] ENRRIQUE SOLORIO Self - patient is the insured
--- OUTSIDE RECORDS SUMMARY | 2025-07-05 17:43 | XMS_ITS | Encounter Summary ---
Author Organization [facility] Address [address] [place] [address] Phone Care Team Providers Care Lead Php Developer Name Role Phone Trish Red MD Primary Care Provider + Dandy BOB MD, John J. Unavailable [phone] Joseph Rubalcava MD Unavailable [phone] Aly Casey MD Primary Care Provider [phone] Aly Casey MD Primary Care Provider [phone] Aly Casey MD Primary Care Provider [phone] Trish Red MD Primary Care Provider + Aly Casey MD Primary Care Provider [phone] Imani Chau RN Unavailable [phone] Liam Holm MD Unavailable [phone] Easton Freeman MD Unavailable [phone] Jori Guzmán MD PhD Unavailable [phone] Waylon Agarwal MD Primary Care Provider [phone] Waylon Agarwal MD Primary Care Provider [phone] Encounter Details Date Type Department Care Team (Late st Contact Info) Description 02/24/2018 Orders Only [facility] Provider, Historical, MD [address] [place] [address] Social History Tobacco Use Types Packs/Day Years Used Date Smoking Tobacco: Never Smokeless Tobacco: Never Comments Unknown Sex and Gender Information Value Date Recorded Sex Assigned at Not on file 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 Historical Provider LAB BLOOD ORDERABLES Madelyn l Result documented in this encounter Visit Diagnoses Not on filedocumented in this encounter Additional Health Concerns Infection Onset Date Last Indicated Resolved Time Varicella/Zoster, contact + airborne Comment:Pt positive for Varicella at urgent care on 03/09; waiting to hear back about dissemination status. 03/10/2024 03/10/2024 024 3:06 AM CDT documented as of this encounter Care Teams Lead Php Developer Relationship Specialty Start Date End Date Trish Red MD [address] [place] [address] PCP - General 04/07/17 03/21/18 Aly Casey MD [address] [address] PCP - General 03/22/18 03/23/18 Aly Casey MD [address] [id number] PCP - General 03/24/18 03/24/18 Aly Casey MD [address] [place] [address] PCP - General 03/25/18 03/25/18 Trish Red MD [address] [place] [address] PCP - General 03/26/18 03/27/18 Aly Casey MD [address] [place] [address] PCP - General 03/28/18 04/05/23 Waylon Agarwal MD [address] [place] [address] PCP - General Family Practice 04/06/23 06/14/24 Waylon Agarwal MD [address] [place] [address] PCP - General Family Practice 06/15/24 Jori Dorman III, MD [address] [place] [address] Consulting Physician Rheumatology 12/21/17 Joseph Rubalcava MD [address] [facility] [address] [place] [address] Referring Physician Nephrology 03/21/18 04/14/21 Imani Chau RN [address] [facility] [address] [place] [address] [facility] Outpatient [facility] 05/19/21 05/19/21 Liam Holm MD [address] [facility] [address] [place] [address] Referring Physician Cardiology 11/24/22 Easton Freeman MD [address] [facility] [address] [place] [address] Cardiothoracic Surgery 01/08/23 Jori Guzmán MD PhD [address] [place] [address] Referring Physician Cardiology 01/08/23 documented as of this encounter
--- OUTSIDE RECORDS SUMMARY | 2025-07-05 17:43 | XMS_ITS | Clinical Summary ---
Author Organization [facility] Address [address] [place] [address] Phone Care Team Providers Care Linux Consultant Name Role Phone BridgetHarjinder hoskins Primary Care Provider [phone] Allergies Active Allergy Reactions Criticality Noted Date Comments Nickel Rash Low 03/11/2022 Reaction: Rash, Wound Dressing Adhesive Rash High 03/11/2022 Other reaction(s): Blisters Reaction: RASH, Medications atorvastatin (LIPITOR) 10 MG tablet 02/04/2022 Active buPROPion SR (WELLBUTRIN SR) 200 MG 12 hr tablet Take 200 mg by mouth 2 (two) times a day 02/20/2022 Active hydroxychloroqui ne (PLAQUENIL) 200 MG tablet 03/07/2022 Activ e sertraline (ZOLOFT) 100 MG tablet Take 100 mg by mouth 1 (one) time each day 02/20/2022 Active ascorbic acid (VITAMIN C) 1000 MG tablet Take 1,000 mg by mouth daily Active aspirin (ST MISSY) 81 MG EC tablet Take 81 mg by mouth 2 times daily 05/15/2021 Active Calcium Carbonate-Vit D-Min (RA Calcium 600/Vit D/Minerals) 600-200 MG-UNIT tablet Take 1 tablet by mouth daily Active cholecalciferol (VITAMIN D-3) 25 MCG (1000 UT) capsule Take 50,000 Units by mouth Active clonazePAM (KlonoPIN) 0.5 MG dispersible tablet Take 0.5 mg by mouth Active Cyanocobalamin [address] 1 tablet under the tongue 2 times daily Active clonazePAM (KlonoPIN) 0.5 MG tablet Take 0.5 mg by mouth 2 (two) times a day 05/01/2022 Active Active Problems Problem Noted Date Diagnosed Date Acute postoperative pain 04/02/2022 Chronic fatigue 06/17/2021 Dyslipidemia 06/17/2021 Electrocardiogram abnormal 06/17/2021 Osteoarthritis of right glenohumeral joint 04/07 Overview (04/02/2022): Added automatically from request for surgery [id number] Moderate aortic valve stenosis 07/17/2020 Glomerular filtration rate decreased 07/04/2018 Renal mass 07/04/2018 Anxiety 04/21/2018 Cardiac murmur 04/21/2018 Depressive disorder 04/21/2018 Edema of foot 04/21/2018 Ex-smoker 04/21/2018 History of anemia 04/21/2018 Rotator cuff arthropathy of left shoulder 2017 Patient encounter status 03/31/2018 Creatinine level - finding 03/28/2018 Proteinuria 03/28/2018 Shoulder pain 03/21/2018 Pain in joint 02/23/2018 Carpal tunnel syndrome 10/21/2017 Articular gout 10/20/2017 Pain of knee region 07/09/2017 Immunizations Immunization Administration Dates Next Due Sars-cov-2, Unspecified 01/03/2022,10/03/2021,,03/03/2021 Family History Medical History Relation Comments Alcoholism Father Atrial fibrillation Father Heart disease Father Heart disease Mother Kidney disease Mother Mental disorder Mother Relation Status Comments Father Mother Social History Tobacco Use Types Packs/Day Years Used Date Smoking Tobacco: Former Cigarettes 0.8 15 Smokeless Tobacco: Never Alcohol Use Standard Drinks/Week Comments Yes 2 (1 standard drink = 0.6 oz pur e alcohol) Comments Unknown Sex and Gender Information Value Date Recorded Sex Assigned at Not on file Legal Sex Female 10:32 AM MDT Gender Identity Not on file Sexual Orientation Not on file Last Filed Vital Signs Vital Sign Reading Time Taken Comments Blood Pressure 128/72 07/13/2022 11:00 AM CDT Pulse - - Temperature 36.9 C (98.4 F) 07/13/2022 11:00 AM CDT Respiratory Rate 18 07/13/2022 11:00 AM CDT Oxygen Saturation - - Inhaled Oxygen Concentration - - Weight 90.7 kg (200 lb) 07/13/2022 11:00 AM CDT Height 167.6 cm (5' 6) 07/13/2022 11:00 AM CDT Body Mass Index 32.28 07/13/2022 11:00 AM CDT Plan of Treatment Health Maintenance Due Date Last Done Comments Pneumococcal PPSV23/PCV13 65 + Years / Low and Medium Risk (1 of 2 - PCV) 1991 Influenza Vaccine (#1) 2025 Insurance [employer] MEDICARE Care Teams Linux Consultant Relationship Specialty Start Date End Date Harjinder Gill DO [address] [place] [address] PCP - General Internal Medicine 07/13/22
--- OUTSIDE RECORDS SUMMARY | 2025-07-05 17:43 | XMS_ITS | Patient Health Record ---
Author Organization [facility] Address [address] [facility] [address] [place] [address] Care Team Providers Care Wealth Management Consultant Name Role Phone Roya Love Unavailable [phone] Reason For Referral No Information Medications Medication SIG (Take, Route, Frequency, Duration) Notes Start Date End Date Status clonazePAM 0.5 MG prn Oral Ac tive Aspirin Adult Low Strength 81 MG take 1 tablet (81 mg) by oral route once daily Oral 1 Active PreserVision AREDS - bid oral *Pick strength-form from [employer] for eRX* Active buPROPion HCl ER (SR) 200 MG take 1 tablet (200 mg) by oral route 2 times per day Oral Active Iron (Ferrous Sulfate) 325 (65 Fe) MG take 1 tablet (325 mg) by oral route 2 times per day Oral 2 Active Vitamin B-12 - take 1 by oral route 2X oral *Pick strength-form from [employer] for eRX* Active Doxycycline Hyclate 20 MG take 1 tablet (20 mg) by oral route 2 times per day 1 hour before a meal or 2 hours after a meal Oral 2 Active Calcium Carbonate 1250 (500 Ca) MG take 1 tablet by oral route twice Oral 2 Active Multiple Vitamins take 1 tablet by oral route once Oral 1 Active Sertraline HCl 100 MG take 1 tablet (100 mg) by oral route once daily Oral 1 Active Folic Acid 400 mcg take 1 tablet (0.4 mg) by oral route once daily Oral 1 Active Vitamin C 1000 MG take 1 tablet by oral route twice Oral 2 Active Atorvastatin Calcium 10 MG take 1 tablet (10 mg) by oral route once daily Oral 1 Active Plan Of Treatment No Information Insurance Providers Payer Name Payer Address Payer Phone Subscriber Number Group Number Insured Name Patient Relationship to Insured Coverage Start Date Coverage End Date DO NOT USE [place], [place] [id number] Sandhya Burk Self - patient is the insured Medical (General) History Surgical History Surgery Date(Month/Year) Carpal tunnel release; 2021-08-04 Knee replacement; 2021-08-04 D&C; 2021-08-04 Hernia Repair; 2021-08-04 Hysterectomy; 2021-08-04 Tonsillectomy, Date of Procedure: 1945; 2021-08-19
--- OUTSIDE RECORDS SUMMARY | 2025-07-05 17:43 | XMS_ITS | Clinical Summary ---
Author Organization [facility] Address [address] [place] [address] Care Team Providers Care Fixed Assets Accountant Name Role Phone Dandy BOB MD, Jori Woodard Unavailable [phone] Liam Holm MD Unavailable [phone] Easton Freeman MD Unavailable [phone] Jori Guzmán MD PhD Unavailable [phone] Waylon Agarwal MD Primary Care Provider [phone] Allergies Active Allergy Reactions Criticality Noted Date Comments Adhesive Rash High 03/11/2022 Other reaction(s): Blisters Reaction: RASH, Adhesive Tape-Silicones Rash,Blisters High Reaction: RASH, Lotion Soft Body Itching Low 04/14/2018 Non hypoallogenic Nickel Rash Reaction: Rash, Silicone Unknown 08/04/2021 Medications buPROPion SR (WELLBUTRIN SR) 200 mg 12 hr tablet Take 1 tablet (200 mg total) by mouth 2 (two) times a day 02/01/20 18 Active clonazePAM (KlonoPIN) 0.5 mg disintegrating tablet Take 1 tablet (0.5 mg total) by mouth 3 (three) times a day as needed for seizures Active cyanocobalamin, vitamin B-12, 5,000 mcg tablet, sublingual Place 1 tablet under the tongue 2 (two) times a day Active multivitamin capsule Take 1 capsule by mouth interactive developer before breakfast Active ascorbic acid (VITAMIN C) 1,000 mg tablet Take 1 tablet (1,000 mg total) by mouth interactive developer before breakfast Active vit C,X-Fq-ovilv-lutei n-zeaxan 250-90-40-1 mg capsule Take 1 capsule by mouth 2 (two) times a day Active aspirin 81 mg enteric coated tabletIndications: Deep Vein Thrombosis Prevention Take 1 tablet (81 mg total) by mouth 2 (two) times a day for 14 days 28 tablet 05/15/20 21 Active Additional Information Patient taking differently:81 mg oralNightly, Indications: prevention of thrombosis, Informant: Self, Reported on 02/11/2023 acetaminophen (TYLENOL) 325 mg tablet Take 2 tablets (650 mg total) by mouth every 6 (six) hours as needed for pain 100 tablet 05/15/20 21 Active Additional Information Patient not taking.Informant: Self, Reported on 02/07/2024 sertraline (ZOLOFT) 100 mg tablet Take 1 tablet (100 mg total) by mouth every morning Active sacubitriL-valsart an (ENTRESTO) 24-26 mg tabletIndications: chronic heart failure Take 0.5 tablets by mouth 2 (two) times a day RESTART THIS MEDICATION ON Wednesday01/11/23 30 tablet 11 01/08/20 23 Active Additional Information Patient not taking.Reported on 07/12/2024 coenzyme Q10 10 mg capsule Take 1 capsule (10 mg total) by mouth daily Active doxycycline (PERIOSTAT) 20 mg tablet TAKE 1 TABLET BY MOUTH TWICE DAILY FOR ROSACEA 01/10/20 24 Active ferrous sulfate 325 mg (65 mg of elemental iron) tablet daily with breakfast Active folic acid (FOLVITE) 400 mcg tablet take 1 tablet (0.4 mg) by oral route once daily Oral 1 Active furosemide (LASIX) 20 mg tablet Take 1 tablet (20 mg total) by mouth daily 30 tablet 1 07/03/20 24 Active potassium chloride ER (KLOR-CON) 20 mEq CR tablet Take 1 tablet (20 mEq total) by mouth daily 30 tablet 1 07/03/20 24 Active Additional Information Patient not taking.Reported on 07/12/2024 metoprolol XL (TOPROL-XL) 25 mg extended release tablet Take 1 tablet (25 mg total) by mouth daily 90 tablet 6 07/12/20 24 025 Active dapagliflozin propanediol (Farxiga) 10 mg tablet TAKE 1 TABLET(10 MG) BY MOUTH DAILY 30 tablet 02/14/20 25 Active atorvastatin (LIPITOR) 10 mg tablet TAKE 1 TABLET(10 MG) BY MOUTH EVERY MORNING 90 tablet 3 03/26/20 25 Active apixaban (Eliquis) 5 mg tablet Take 1 tablet (5 mg total) by mouth 2 (two) times a day 60 tablet 2 06/25/20 25 Active Eliquis 5 mg tablet TAKE 1 TABLET(5 MG) BY MOUTH TWICE DAILY 60 tablet 3 10/18/20 24 025 Discontin ued(Reord er) Active Problems Problem Noted Date Diagnosed Date Chronic HFrEF (heart failure with reduced ejection fraction) 04/06/2023 Symptomatic hypotension 04/06/2023 S/P TAVR (transcatheter aortic valve replacement ) 01/07/2023 Assessment & Plan (02/07/2024 4:59 PM CDT): SP 26 mm TAVR Patricia 3-January 2023. With Increased gradients today on her ECHO with a mean of [address] Hassan in clinic today. Gated TAVR CT, ZBIGNIEW and Eliquis concern for valve thrombosis. Follow up with echo and Leslie or Dr. Hassan in 1 month. Continue ASA and SBE. Encounter for examination fo r normal comparison and control in clinical research program 12/29/2022 Overview (12/29/2022): Added automatically from request for surgery [id number] Coronary artery disease invo lving [place] coronary artery of [place] heart without angina pectoris 12/15/2022 Dilated cardiomyopathy 11/24/2022 Assessment & Plan (02/07/2024 4:58 PM CDT): HFimpEF. Chronic Systolic heart failure with an EF of 50% on ECHO today. Her weight is stable and she has chronic NYHA class II-III findings. Her BP is limiting her GDMT she is no longer tolerating entresto secondary to hypotension. Continue bb and farxiga. Further recs per Dr. Turner. Mixed hyperlipidemia 10/02/2022 BONILLA (dyspnea on exertion) 10/02/2022 Chronic fatigue 06/17/2021 Abnormal EKG 06/17/2021 Glenohumeral arthritis, right 04/07/2021 Overview (04/07/2021): Added automatically from request for surgery [id number] Aortic valve stenosis 07/17/2020 Decreased calculated GFR 07/04/2018 Renal mass 07/04/2018 Rotator cuff tear arthropathy, left 04/21/2018 Anxiety 04/21/2018 Depression 04/21/2018 History of anemia 04/21/2018 Former smoker 04/21/2018 Heart murmur 04/21/2018 Pedal edema 04/21/2018 Aftercare following right knee joint replacement surgery 03/31/2018 Creatinine elevation 03/28/2018 Proteinuria 03/28/2018 Left shoulder pain 03/21/2018 Arthralgia 02/23/2018 Carpal tunnel syndrome 10/21/2017 Articular gout 10/20/2017 Gouty arthritis 10/20/2017 Knee pain 07/09/2017 Encounter for preventive health examination 05/2011 Acute postoperative pain Acute pain of left shoulder Resolved Problems Problem Noted Date Diagnosed Date Resolved Date Dyslipidemia 06/17/2021 11/24/2022 Encounters Date Type Department Care Team Description 06/22/2025 Telephone [facility] Cardiology [address] [place] [address] Randy Corona MD from Last 3 Months Immunizations Immunization Administration Dates Next Due Influenza, Unspecified 08/15/2022 Surgical History Surgery Date Site/Laterality Comments REPLACEMENT TOTAL KNEE 12/2017, 03/2017 Bilateral R TKA (03/2017); L TKA (12/2017) CARPAL TUNNEL RELEASE 10/2017, 03/2018 L CTS (10/2017); R CTS (03/2018) TONSILLECTOMY childhood DILATION AND CURETTAGE OF UTERUS ~ 1989 HERNIA REPAIR 11/15/1995 - 11/14/1996 abdominal HYSTERECTOMY 11/15/1999 - 11/14/2000 TOTAL SHOULDER REPLACEMENT CARDIAC CATHETERIZATION 11/15/2022 - 12/15/2022 Medical History Medical History Date Comments Uterine cancer (HCC) 1999 Kidney disease Anemia Osteoarthritis PONV (postoperative nausea and vomiting) Motion sickness Murmur, cardiac ~ 1999 Hernia of abdominal wall Moderate aortic stenosis 07/17/2020 Aortic stenosis Major depressive episode Kidney disease Hyperlipidemia Rosacea Cardiomyopathy Hypertension Mild coronary artery disease 02/11/2023 Family History Medical History Relation Name Comments Atrial fibrillation Father Heart attack Father Kidney failure Mother Anesthesia problems Neg Hx Relation Name Status Comments Father (Age 82 ) Mother (Age 98) Social History Tobacco Use Types Packs/Day Years Used Date Smoking Tobacco: Former Cigarettes 0.5 19 1 9 1977 Passive Smoke Exposure: Past Smokeless Tobacco: Never Tobacco Cessation:Counseling Given: Not Answered Alcohol Use Standard Drinks/Week Comments Yes 1 [...] on file 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 Gender Identity Female 06/24/2022 4:25 PM CDT Sexual Orientation Straight 06/24/2022 4: 25 PM CDT Obstetrics History Last Filed Vital Signs Vital Sign Reading Time Taken Comments Blood Pressure 92/62 07/12/2024 1:24 PM CDT Pulse 63 07/12/2024 1:24 PM CDT Temperature 36.6 C (97.9 F) 04/27/2024 9:13 AM CDT Respiratory Rate 25 04/27/2024 12:50 PM CDT Oxygen Saturation 95% 07/12/2024 1:24 PM CDT Inhaled Oxygen Concentration - - Weight 77 kg (169 lb 11.2 oz) 07/12/2024 1:24 PM CDT Height 165.1 cm (5' 5) 07/12/2024 1:24 PM CDT Body Mass Index 28.24 07/12/2024 1:24 PM CDT Plan of Treatment Health Maintenance Due Date Last Done Comments Depression Screening 1941 Osteoporosis Screening-Bone Density Scan 1941 DTaP/Tdap/Td Vaccine (1 - Tdap) 1952 Hepatitis B Screening 1959 Well Visit 65+ 2006 Pneumococcal vaccine 65+ (2 of 2 - PPSV23, PCV20, or PCV21) 12/23/2016 10/28/2016 Zoster Vaccine (2 of 2) 09/02/2020 07/08/2020 Fall Risk Assessment 04/27/2025 04/27/2024 Influenza Vaccine (#1) 2025 2, 08/30/2020, 09/08/2019, Additional history exists Medical Devices Implanted Type Area Freight Broker Agent Device Identifier Shelf Expiration Date Model / Serial / Lot MyTrade Angio-Seal Vip 6fr Closere Device [id number] - [id number] Implanted:Qty: 1 on 01/07/2023 by Jori Guzmán MD PhD at [facility] Collagen Left: Common Femoral Artery [employer] 07/15/2023 [id number] / / [id number] Baseplate Glenoid Aequalis L25 Mm Od25 Mm Reverse Ii - [id number] - [id number] Implanted:Qty: 1 on 04/22/2018 by Humza Gordon MD at [facility] Other - see comments Left: Shoulder Tornier Inc [id number] 03/03/2021 [id number] / [id number] / 0 Description:baseplate Insert Humeral Aequalis Ascend Flex B 12.5 D H6+ Mm Od36 Mm Shoulder Reverse - [id number] - [id number] Implanted:Qty: 1 on 04/22/2018 by Humza Gordon MD at [facility] Other - see comments Left: Shoulder [employer]ornier Inc [id number] 02/26/2023 [id number] / [id number] / 0 Description:Reversed insert Tray Humeral Aequalis Ascend Flex +0 Mm 1.5 Mm Low Offset Shoulder Reverse - [id number] - [id number] Implanted:Qty: 1 on 04/22/2018 by Humza Gordon MD at [facility] Other - see comments Left: Shoulder [employer]ier Inc [id number] 12/10/2022 [id number] / [id number] / 0 Description:Reversed tray Long Ptc Humeral Stem Implanted:Qty: 1 on 04/22/2018 by Humza Gordon MD at [facility] Other - see comments Left: Shoulder [employer]atech [employer] Inc [id number] 03/14/2019 [id number] / 0 / [id number] Description:Stem humeral [employer]sey [employer] Device Clsr Perclose Prostyle Sut-Mediatd Closure-Repair Sys 79823-49 - [id number] Implanted:Qty: 1 on 01/07/2023 by Jori Guzmán MD PhD at [facility] Other - see comments Right: Common Femoral Artery [employer] 10/14/2024 39558-10 / / [id number] Vitale Lifesciences Valve Heart 26mm Patricia 3 Transcatheter [id number] - [id number] - [id number] Implanted:Qty: 1 on 01/07/2023 by Jori Guzmán MD PhD at [facility] Prosthetic Valve N/A: Aortic Valve Vitale Lifesciences 08/16/2025 [id number] / [id number] / Tornier Inc Aequalis 4.5mm 32mm Lock Multidirectiona l Self Tap Screw Shoulder - S0 - [id number] Implanted:Qty: 1 on 04/22/2018 by Humza Gordon MD at [facility] Screw Left: Shoulder [employer]ier Inc [id number] / 0 / Centered Glenoid Sphere Implanted:Qty: 1 on 04/22/2018 by Humza Gordon MD at [facility] Screw Left: Shoulder Geo [employer] Inc [id number] 03/03/2023 / [id number] / 0 Description:glenosphere Tornier Inc Aequalis 4.5mm 20mm Lock Multidirectiona l Self Tap Screw Shoulder - S0 - [id number] Implanted:Qty: 1 on 04/22/2018 by Humza Gordon MD at [facility] Screw Left: Shoulder Tornier Inc [id number] / 0 / Tornier Inc Aequalis 4.5mm 44mm Lock Multidirectiona l Self Tap Screw Shoulder - S0 - [id number] Implanted:Qty: 1 on 04/22/2018 by Humza Gordon MD at [facility] Screw Left: Shoulder Tornier Inc [id number] / 0 / Tornier Inc Aequalis 4.5mm 23mm Lock Multidirectiona l Self Tap Screw Shoulder - S0 - [id number] Implanted:Qty: 1 on 04/22/2018 by Humza Gordon MD at [facility] Screw Left: Shoulder Tornier Inc [id number] / 0 / Tornier Inc [id number] Aequalis 29mm Reverse Long Post Shoulder Baseplate Glenoid Richardson - [id number] - [id number] Implanted:Qty: 1 on 05/15/2021 by Ramiro Pappas MD at [facility] [employer] 08/23/2024 [id number] / [id number] / SeatMenier Inc [id number] Aequalis Reversed 4.5mm 26mm Compression Glenoid Screw Baseplate - [id number] Implanted:Qty: 1 on 05/15/2021 by Ramiro Pappas MD at [facility] [employer] [id number] / / Seat[employer] [id number] Aequalis Reversed 4.5mm 20mm Compression Glenoid Screw Baseplate - [id number] Implanted:Qty: 1 on 05/15/2021 by Ramiro Pappas MD at [facility] [employer] [id number] / / SeatMenier Scan [employer] [id number] Aequalis 4.5mm 32mm Lock Multidirectiona l Self Tap Shoulder Screw Latex Free - [id number] Implanted:Qty: 1 on 05/15/2021 by Ramiro Pappas MD at [facility] [employer] [id number] / / Se[employer] [id number] Aequalis 4.5mm 32mm Lock Multidirectiona l Self Tap Shoulder Screw Latex Free - [id number] Implanted:Qty: 1 on 05/15/2021 by Ramiro Pappas MD at [facility] [employer] [id number] / / [employer] [id number] 36mm Reverse Ii Center Shoulder Sphere Glenoid Titanium - [id number] Implanted:Qty: 1 on 05/15/2021 by Ramiro Pappas MD at [facility] [employer] [id number] / / SeatMenier Scan [employer] [id number] Latitude 8-15mm Restrictor Elbow Restrictor Cement - [id number] Implanted:Qty: 1 on 05/15/2021 by Ramiro Pappas MD at [facility] [employer] [id number] / / Erik Biomet Inc [id number] 12mm 130mm Shoulder Stem Humeral Trabecular Metal Tivanium - [id number] Implanted:Qty: 1 on 05/15/2021 by Ramiro Pappas MD at [facility] [employer] Inc [id number] / / [employer] 6191-1-010 Simplex P Radiopaque Full Dose Cement Bone Sterile - [id number] Implanted:Qty: 2 on 05/15/2021 by Ramiro Pappas MD at [facility] [employer] 08/14/2022 [id number] / / Erik [employer] Inc [id number] 36mm Reverse Humerus 7d +0mm Offset Standard Liner Shoulder - [id number] Implanted:Qty: 1 on 05/15/2021 by Ramiro Pappas MD at [facility] [employer] [id number] / / Explanted Type Area Freight Broker Agent Device Identifier Shelf Expiration Date Model / Serial / Lot [employer] [id number] Víctor .062in 9in Trocar [employer] Wire - [id number] Explanted:Qty: 3 on 05/15/2021 by Ramiro Pappas MD at [facility] [employer] [id number] / / Insurance [facility] Advance Directives For more information, please contact: [phone] * Full Code (Latest Code Status on File) Date Activated Date Inactivated Comments 05/15/2021 1:18 PM 05/17/2021 4:50 PM * Full Code Date Activated Date Inactivated Comments 04/22/2018 2:33 PM 04/24/2018 6:30 PM Care Teams Fixed Assets Accountant Relationship Specialty Start Date End Date Waylon Agarwal MD [address] [place] [address] PCP - General Family Practice 06/15/24 Jori Dorman III, MD [address] [place] [address] Consulting Physician Rheumatology 12/21/17 Liam Holm MD [address] [place] [address] Referring Physician Cardiology 11/24/22 Easton Freeman MD [address] [place] [address] Cardiothoracic Surgery 01/08/23 Jori Guzmán MD PhD [address] [place] [address] Referring Physician Cardiology 01/08/23
[2025-07-05 18:10] LABS: Albumin Level 4.3 g/dL (3.5-5.1); Anion Gap 10 mmol/L (4-12); Blood Urea Nitrogen 40 mg/dL (7-17); Calcium 9.7 mg/dL (8.4-10.2); Carbon Dioxide 23 mmol/L (22-30); Chloride 106 mmol/L (98-107); Estimated Glomerular Filt Rate 40; Glucose 117 mg/dL (65-110); Potassium 4.4 mmol/L (3.4-5.0); Sodium 139 mmol/L (137-145)
[2025-07-05 18:18] LABS: Total Protein Urine Random 12 mg/dL; Ur Ttl Prot Creatinine Ratio 0.07 mg/mg (0-0.20)
== END 2025-07-05 17:42 | disposition home or self-care (01) ==
PROVIDERS: PCP Family Medicine; Visit Provider Internal Medicine Nephrology
DX: N18.32 Chronic kidney disease, stage 3b (principal)
CPT/HCPCS: 36415; 80069; 82570; 84156

== ENCOUNTER 2025-08-29 12:35 | Outpatient (CLI) | payer MEDICARE, SELFPAY ==
[2025-08-29 13:04] LABS: Hematocrit 42.0 % (37.0-47.0); Hemoglobin 13.4 g/dL (12.0-15.0); Immature Granulocyte Percent A 0.3 % (0-0.5); Immature Platelet Fraction Pct 5.0 % (0.9-11.2); Lymphocytes Absolute Auto 1.39 K/mm3 (0.9-3.2); Mean Corpuscular HGB Conc 31.9 g/dl (32-36); Mean Corpuscular Hemoglobin 32.4 pg (26-34); Mean Corpuscular Volume 101.7 fl (80-100); Nucleated Red Blood Cells Absolute Auto 0.000 K/mm3 (0.0-0.012); Nucleated Red Blood Cells Perc 0.0 % (0.0-0.2); Platelet Count Result 82 k/mm3 (150-375); Red Blood Count 4.13 M/mm3 (4.2-5.4); White Blood Count 6.1 K/mm3 (4.5-10.0)
[2025-08-29 13:25] LABS: Alanine Aminotransferase 18 U/L (6-35); Albumin Level 4.1 g/dL (3.5-5.1); Alkaline Phosphatase 73 U/L (38-126); Anion Gap 9 mmol/L (4-12); Aspartate Amino Transferase 28 U/L (14-36); Bilirubin,Total 0.6 mg/dL (0.2-1.3); Blood Urea Nitrogen 53 mg/dL (7-17); Calcium 9.5 mg/dL (8.4-10.2); Carbon Dioxide 19 mmol/L (22-30); Chloride 110 mmol/L (98-107); Estimated Glomerular Filt Rate 29; Glucose 90 mg/dL (65-110); Magnesium 2.1 mg/dL (1.6-2.3); Potassium 4.5 mmol/L (3.4-5.0); Sodium 138 mmol/L (137-145); Total Protein 6.7 g/dL (6.3-8.2)
[2025-08-29 14:00] LABS: Thyroid Stimulating Hormone 3.280 uIU/mL (0.465-4.680)
--- OUTSIDE RECORDS SUMMARY | 2025-08-29 14:15 | XMS_ITS | Clinical Summary ---
Author Organization [facility] Address [address] [place] [address] Care Team Providers Care Malted Milk Masher Name Role Phone Dandy BOB MD, Jori Woodard Unavailable [phone] Lima Holm MD Unavailable [phone] Easton Freeman MD Unavailable [phone] Jori Guzmán MD PhD Unavailable [phone] Waylon Agarwal MD Primary Care Provider [phone] Allergies Active Allergy Reactions Criticality Noted Date [...] multivitamin capsule Take 1 capsule by mouth exhibits curator before breakfast Active ascorbic acid (VITAMIN C) 1,000 mg tablet Take 1 tablet (1,000 mg total) by mouth exhibits curator before breakfast Active vit C,K-Ol-baryr-lutei n-zeaxan 250-90-40-1 mg capsule Take 1 capsule [...] as needed for pain 100 tablet 05/15/20 Active Additional Information Patient not taking.Informant: Self, [...] mouth daily 90 tablet 6 07/12/20 24 Active dapagliflozin propanediol (Farxiga) 10 mg tablet TAKE 1 TABLET(10 MG) BY MOUTH DAILY 30 tablet 02/14/20 25 Active atorvastatin (LIPITOR) 10 mg tablet TAKE 1 TABLET(10 MG) BY MOUTH EVERY MORNING 90 tablet 3 03/26/20 25 Active apixaban (Eliquis) 5 mg tablet Take 1 tablet (5 mg total) by mouth 2 (two) times a day 60 tablet 2 06/25/20 25 Active Active Problems Problem Noted Date Diagnosed [...] (12/29/2022): Added automatically from request for surgery [id number] 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 12/15/2022 Dilated cardiomyopathy [...] (04/07/2021): Added automatically from request for surgery [id number] Aortic valve stenosis 07/17/2020 Decreased calculated GFR [...] Type Department Care Team Description 06/22/2025 Telephone [facility] Cardiology [address] [place] [address] Randy Corona MD from Last [...] Former Cigarettes 0.5 19 1 959 - 1978 Passive Smoke Exposure: Past Smokeless Tobacco: Never [...] on file 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 Gender Identity Female 06/24/2022 4:25 PM CDT [...] history exists Medical Devices Implanted Type Area Timber Appraiser Device Identifier Shelf Expiration Date Model / Serial / Lot TerumF3 Foods Medical Romero Angio-Seal Vip 6fr Closere Device [id number] - [id number] Implanted:Qty: 1 on 01/07/2023 by Jori Guzmán MD PhD at [facility] Collagen Left: Common Femoral Artery Terumo Medical Romero 07/15/2023 [id number] / / [id number] Baseplate Glenoid Aequalis L25 Mm Od25 Mm Reverse Ii - [id number] - [id number] Implanted:Qty: 1 on 04/22/2018 by Humza Gordon MD at [facility] Other - see comments Left: Shoulder Tornier Inc [id number] 03/03/2021 [id number] / [id number] / 0 Description:baseplate Insert Humeral Aequalis Ascend Flex B 12.5 D H6+ Mm Od36 Mm Shoulder Reverse - [id number] - [id number] Implanted:Qty: 1 on 04/22/2018 by Humza Gordon MD at [facility] Other - see comments Left: Shoulder Tornier Inc [id number] 02/26/2023 [id number] / [id number] / 0 Description:Reversed insert Tray Humeral Aequalis Ascend Flex +0 Mm 1.5 Mm Low Offset Shoulder Reverse - [id number] - [id number] Implanted:Qty: 1 on 04/22/2018 by Humza Gordon MD at [facility] Other - see comments Left: Shoulder Tornier Inc [id number] 12/10/2022 [id number] / [id number] / 0 Description:Reversed tray Long Ptc Humeral Stem Implanted:Qty: 1 on 04/22/2018 by Humza Gordon MD at [facility] Other - see comments Left: Shoulder Soapbox Mobile [employer] Inc [id number] 03/14/2019 [id number] / 0 / [id number] Description:Stem humeral Dorsey Vascular Device Clsr Perclose Prostyle Sut-Mediatd Closure-Repair Sys 06876-33 - [id number] Implanted:Qty: 1 on 01/07/2023 by Jori Guzmán MD PhD at [facility] Other - see comments Right: Common Femoral Artery Dorsey V[employer] 10/14/2024 [id number] / / [id number] Vitale Lifesciences Valve Heart 26mm Patricia 3 Transcatheter [id number] - [id number] - [id number] Implanted:Qty: 1 on 01/07/2023 by Jori Guzmán MD PhD at [facility] Prosthetic Valve N/A: Aortic Valve Vitale Lifesciences 08/16/2025 [id number] / [id number] / Tornier Inc Aequalis 4.5mm 32mm Lock Multidirectiona l Self Tap Screw Shoulder - S0 - [id number] Implanted:Qty: 1 on 04/22/2018 by Humza Gordon MD at [facility] Screw Left: Shoulder Tornier Inc [id number] / 0 / Centered Glenoid Sphere Implanted:Qty: 1 on 04/22/2018 by Humza Gordon MD at [facility] Screw Left: Shoulder BalconyTV Inc [id number] 03/03/2023 / [id number] / 0 Description:glenosphere Tornier Inc Aequalis 4.5mm 20mm Lock Multidirectiona l Self Tap Screw Shoulder - S0 - [id number] Implanted:Qty: 1 on 04/22/2018 by Humza Gordon MD at [facility] Screw Left: Shoulder Tornier Inc [id number] / 0 / Tornier Inc Aequalis 4.5mm 44mm Lock Multidirectiona l Self Tap Screw Shoulder - S0 - [id number] Implanted:Qty: 1 on 04/22/2018 by Humza Gordon MD at [facility] Screw Left: Shoulder Tornier Inc [id number] / 0 / Tornier Inc Aequalis 4.5mm 23mm Lock Multidirectiona l Self Tap Screw Shoulder - S0 - [id number] Implanted:Qty: 1 on 04/22/2018 by Humza Gordon MD at [facility] Screw Left: Shoulder Tornier Inc [id number] / 0 / Tornier Inc Aah001 Aequalis 29mm Reverse Long Post Shoulder Baseplate Glenoid Richardson - [id number] - [id number] Implanted:Qty: 1 on 05/15/2021 by Ramiro Pappas MD at [facility] [employer] [facility] 08/23/2024 [id number] / [id number] / Tornier Inc Htd140 Aequalis Reversed 4.5mm 26mm Compression Glenoid Screw Baseplate - [id number] Implanted:Qty: 1 on 05/15/2021 by Ramiro Pappas MD at [facility] [employer] [facility] [id number] / / Tornier Inc [id number] Aequalis Reversed 4.5mm 20mm Compression Glenoid Screw Baseplate - [id number] Implanted:Qty: 1 on 05/15/2021 by Ramiro Pappas MD at [facility] [employer] [facility] [id number] / / OpenBuildingsnier Inc Rue716 Aequalis 4.5mm 32mm Lock Multidirectiona l Self Tap Shoulder Screw Latex Free - [id number] Implanted:Qty: 1 on 05/15/2021 by Ramiro Pappas MD at [facility] [employer]ision [employer] [id number] / / Tornier Inc [id number] Aequalis 4.5mm 32mm Lock Multidirectiona l Self Tap Shoulder Screw Latex Free - [id number] Implanted:Qty: 1 on 05/15/2021 by Ramiro Pappas MD at [facility] [employer] [id number] / / Precision Therapeutics [id number] 36mm Reverse Ii Center Shoulder Sphere Glenoid Titanium - [id number] Implanted:Qty: 1 on 05/15/2021 by Ramiro Pappas MD at [facility] [employer] [id number] / / Tornier Inc [id number] Latitude 8-15mm Restrictor Elbow Restrictor Cement - [id number] Implanted:Qty: 1 on 05/15/2021 by Ramiro Pappas MD at [facility] [employer] Inc PKT025 / / Erik Biomet Inc [id number] 12mm 130mm Shoulder Stem Humeral Trabecular Metal Tivanium - [id number] Implanted:Qty: 1 on 05/15/2021 by Ramiro Pappas MD at [facility] Erik Biomet Inc [id number] / / [employer] 6191-1-010 Simplex P Radiopaque Full Dose Cement Bone Sterile - [id number] Implanted:Qty: 2 on 05/15/2021 by Ramiro Pappas MD at [facility] [employer] 08/14/2022 6191-1-010 / / Erik Biomet Inc [id number] 36mm Reverse Humerus 7d +0mm Offset Standard Liner Shoulder - [id number] Implanted:Qty: 1 on 05/15/2021 by Ramiro Pappas MD at [facility] [employer] Inc [id number] / / Explanted Type Area Timber Appraiser Device Identifier Shelf Expiration Date Model / Serial / Lot Microaire Surgical Instruments [id number] Víctor .062in 9in Trocar Point One End Orthopedic Wire - [id number] Explanted:Qty: 3 on 05/15/2021 by Ramiro Pappas MD at [facility] [employer] [id number] / / Insurance [facility] MEDICARE ADVANTAGE AETNA MEDICARE AETNA MEDICARE AETNA MEDICARE Advance Directives For more information, please contact: [phone] * Full Code (Latest Code Status on File) Date Activated Date Inactivated Comments 05/15/2021 1:18 PM 05/17/2021 4:50 PM * Full Code Date Activated Date Inactivated Comments 04/22/2018 2:33 PM 04/24/2018 6:30 PM Care Teams Malted Milk Masher Relationship Specialty Start Date End Date Waylon Agarwal MD [address] [place] [address] PCP - General Family Practice 06/15/24 Jori Dorman III, MD [address] [place] [address] Consulting Physician Rheumatology 12/21/17 Liam Holm MD [address] [place] [address] Referring Physician Cardiology 11/24/22 Easton Freeman MD [address] [place] [address] Cardiothoracic Surgery 01/08/23 Jori Guzmán MD PhD [address] [place] [address] Referring Physician Cardiology 01/08/23
--- OUTSIDE RECORDS SUMMARY | 2025-08-29 14:15 | XMS_ITS | Encounter Summary ---
Author Organization [facility] Address [address] [place] [address] Phone Care Team Providers Care Strategy Director Name Role Phone Trish Red MD Primary Care Provider + Dandy BOB MD, John J. Unavailable [phone] Joseph Rubalcava MD Unavailable [phone] Aly Casey MD Primary Care Provider [phone] Aly Casey MD Primary Care Provider [phone] Aly Casey MD Primary Care Provider [phone] Trish Red MD Primary Care Provider + Aly Casey MD Primary Care Provider [phone] Imani Chau RN Unavailable [phone] Liam Holm MD Unavailable [phone] Easton Freeman MD Unavailable [phone] Jori Guzmán MD PhD Unavailable [phone] Waylon Agarwal MD Primary Care Provider [phone] Waylon Agarwal MD Primary Care Provider [phone] Encounter Details Date Type Department Care Team (Late st Contact Info) Description 02/24/2018 Orders Only [facility] Provider, Historical, MD [address] [place] [address] Social History Tobacco Use Types Packs/Day Years Used Date Smoking Tobacco: Never Smokeless Tobacco: Never Comments Unknown Sex and Gender Information Value Date Recorded Sex Assigned at Not on file 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 Gender Identity Female 06/24/2022 4:25 PM CDT [...] documented as of this encounter Care Teams Strategy Director Relationship Specialty Start Date End Date Trish Red MD [address] [place] [address] PCP - General 04/07/17 03/21/18 Aly Casey MD [address] [address] PCP - General 03/22/18 03/23/18 Aly Casey MD [address] [id number] PCP - General 03/24/18 03/24/18 Aly Casey MD [address] [place] [address] PCP - General 03/25/18 03/25/18 Trish Red MD [address] [place] [address] PCP - General 03/26/18 03/27/18 Aly Casey MD [address] [place] [address] PCP - General 03/28/18 04/05/23 Waylon Agarwal MD [address] [place] [address] PCP - General Family Practice 04/06/23 06/14/24 Waylon Agarwal MD [address] [place] [address] PCP - General Family Practice 06/15/24 Jori Dorman III, MD [address] [place] [address] Consulting Physician Rheumatology 12/21/17 Joseph Rubalcava MD [address] [facility] [address] [place] [address] Referring Physician Nephrology 03/21/18 04/14/21 Imani Chau RN [address] [facility] [address] [place] [address] [facility] Outpatient Small Business Sales Representative 05/19/21 05/19/21 Liam Holm MD [address] [facility] [address] [place] [address] Referring Physician Cardiology 11/24/22 Easton Freeman MD [address] [facility] [address] [place] [address] Cardiothoracic Surgery 01/08/23 Jori Guzmán MD PhD [address] [place] [address] Referring Physician Cardiology 01/08/23 documented as of this encounter
--- OUTSIDE RECORDS SUMMARY | 2025-08-29 14:16 | XMS_ITS | Patient Health Record ---
Author Organization [facility] Address [address] [place], [place] [address] Care Team Providers Care Customer Service Officer Name Role Phone ALBIN VIVEROS Unavailable [phone] Tessa Palmer Unavailable Unavailable Reason For Referral No Information Medications Medication SIG (Take, Route, Frequency, Duration) Notes Start Date End Date Status lamoTRIgine 100 MG Oral Tablet ORAL lamotrigine 100 MG Oral TabletOriginal Medicationlamotrigine 100 MG Oral Tablet *Reorder from [facility] for eRx and Interaction Alerts* 12/11/2016 Active sertraline 100 MG Oral Tablet ORAL sertraline 100 MG Oral TabletOriginal Medicationsertraline 100 MG Oral Tablet *Reorder from [facility] for eRx and Interaction Alerts* 12/11/2016 Active bupropion hydrochloride 100 MG Oral Tablet ORAL bupropion hydrochloride 100 MG Oral TabletOriginal Medicationbupropion hydrochloride 100 MG Oral Tablet *Reorder from [facility] for eRx and Interaction Alerts* 12/11/2016 Active Plan Of Treatment No Information Insurance Providers Payer Name Payer Address Payer Phone Subscriber Number Group Number Insured Name Patient Relationship to Insured Coverage Start Date Coverage End Date [facility] [address] [address] [place] [address] [id number] ENRRIQUE SOLORIO Self - patient is the insured
--- OUTSIDE RECORDS SUMMARY | 2025-08-29 14:16 | XMS_ITS | Encounter Summary ---
Author Organization [facility] Address [address] [place] [address] Phone Care Team Providers Care Urgent Care Physician Assistant Name Role Phone Dandy BOB MD, Jori Woodard Unavailable [phone] Joseph Rubalcava MD Unavailable [phone] Aly Casey MD Primary Care Provider [phone] Imani Chau RN Unavailable [phone] Liam Holm MD Unavailable [phone] Easton Freeman MD Unavailable [phone] Jori Guzmán MD PhD Unavailable [phone] Waylon Agarwal MD Primary Care Provider [phone] Waylon Agarwal MD Primary Care Provider [phone] Encounter Details Date Type Department Care Team [...] on file 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 Gender Identity Female 06/24/2022 4:25 PM CDT [...] documented as of this encounter Care Teams Urgent Care Physician Assistant Relationship Specialty Start Date End Date Aly Casey MD [address] [place] [address] PCP - General 03/28/18 04/05/23 Waylon Agarwal MD [address] [place] [address] PCP - General Family Practice 04/06/23 06/14/24 Waylon Agarwal MD [address] [place] [address] PCP - General Family Practice 06/15/24 Jori Dorman III, MD [address] [place] [address] Consulting Physician Rheumatology 12/21/17 Joseph Rubalcava MD [address] [facility] [address] [place] [address] Referring Physician Nephrology 03/21/18 04/14/21 Imain hCau RN [address] [facility] [address] [place] [address] [facility] Outpatient Agriscience Technology Instructor 05/19/21 05/19/21 Liam Holm MD [address] [facility] [address] [place] [address] Referring Physician Cardiology 11/24/22 Easton Freeman MD [address] [facility] [address] [place] [address] Cardiothoracic Surgery 01/08/23 Jori Guzmán MD PhD [address] [place] [address] Referring Physician Cardiology 01/08/23 documented as of this encounter
--- OUTSIDE RECORDS SUMMARY | 2025-08-29 14:16 | XMS_ITS | Clinical Summary ---
Author Organization [facility] Address [address] [place] [address] Phone Care Team Providers Care Cell Biology Scientist Name Role Phone BridgetHarjinder hoskins Primary Care Provider [phone] Allergies Active Allergy Reactions Criticality Noted Date [...] (04/02/2022): Added automatically from request for surgery [id number] Moderate aortic valve stenosis 07/17/2020 Glomerular filtration [...] 2025 Insurance [employer] MEDICARE Care Teams Cell Biology Scientist Relationship Specialty Start Date End Date Harjinder Gill DO [address] [place] [address] PCP - General Internal Medicine 07/13/22
--- OUTSIDE RECORDS SUMMARY | 2025-08-29 14:16 | XMS_ITS | Patient Health Record ---
Author Organization [facility] Address [address] [facility] [address] [place] [address] Care Team Providers Care Comfort Advisor Name Role Phone Roya Love Unavailable [phone] Reason For Referral No Information Medications Medication SIG (Take, Route, Frequency, Duration) Notes Start Date End Date Status clonazePAM 0.5 MG prn Oral Ac tive Aspirin Adult Low Strength 81 MG take 1 tablet (81 mg) by oral route once daily Oral 1 Active PreserVision AREDS - bid oral *Pick strength-form from Me-Mover for eRX* Active buPROPion HCl ER (SR) 200 MG take 1 tablet (200 mg) by oral route 2 times per day Oral Active Iron (Ferrous Sulfate) 325 (65 Fe) MG take 1 tablet (325 mg) by oral route 2 times per day Oral 2 Active Vitamin B-12 - take 1 by oral route 2X oral *Pick strength-form from Me-Mover for eRX* Active Doxycycline Hyclate 20 MG [...] Date Coverage End Date DO NOT USE [place], [place] [id number] Sandhya Burk Self - patient is the insured Medical (General) History Surgical History Surgery Date(Month/Year) Carpal tunnel release; 2021-08-04 Knee replacement; 2021-08-04 D&C; 2021-08-04 Hernia Repair; 2021-08-04 Hysterectomy; 2021-08-04 Tonsillectomy, Date of Procedure: 1945; 2021-08-19
[2025-08-29 14:47] LABS: Hemoglobin A1C 4.7 % (<5.7)
== END 2025-08-29 12:36 | disposition home or self-care (01) ==
LOC: ANHLAB 12:36
PROVIDERS: PCP Family Medicine; Visit Provider Family Medicine
DX: E78.5 Hyperlipidemia, unspecified (principal); I42.8 Other cardiomyopathies; I35.0 Nonrheumatic aortic (valve) stenosis; R79.89 Other specified abnormal findings of blood chemistry; E55.9 Vitamin D deficiency, unspecified; N18.9 Chronic kidney disease, unspecified; C49.A0 Gastrointestinal stromal tumor, unspecified site; D63.0 Anemia in neoplastic disease; F33.9 Major depressive disorder, recurrent, unspecified; E66.9 Obesity, unspecified
CPT/HCPCS: 36415; 80053; 82306; 83036; 83735; 84443; 85025; 85055